=== PATIENT | male | born 1955 | race Caucasian/White ===

== ENCOUNTER 2024-12-07 08:56 | Outpatient (OUT) | payer MEDICARE, SELFPAY ==
--- OUTSIDE RECORDS SUMMARY | 2024-11-26 23:59 | XMS_ITS | Continuity of Care Document ---
Author Organization [facility] Address [address] [place] [address] Care Team Providers Care Pickling Machine Operator Name Role Phone YESENIA CHIRINOS Primary Care Physician [phone] Encounter [facility] [id number] Date(s): 11/26/24 - 11/26/24 [facility] [address] [place] [address] [place] Encounter Diagnosis BPH without urinary obstruction(Discharge Diagnosis) - 11/26/24 Discharge Disposition: Home (Routine DC) Attending Physician: NOLBERTO VALLADARES PA-C Encounter Type: Clinic Allergies, Adverse Reactions, Alerts Substance Criticality Severity Reaction Reaction Severity Status Milk Products Unknown Active Aluminum Acetate Unknown Act bashir Januvia Diarrhea Active Assessment and Plan Future Appointments Appointment Date:12/08/2024 10:00:00 AM Scheduled Provider:NOLBERTO VALLADARES PA-C Location:[facility] Appointment Type:URO Office Visit Immunizations Given and Recorded Vaccine Date Status Refusal Reason zoster vaccine, inactivated 04/19/23 Recorded zoster vaccine, inactivated 12/13/22 Recorded influenza virus vaccine, inactivated 03/01/23 Shivam rded influenza virus vaccine, inactivated 03/23/22 Shivam rded influenza virus vaccine, inactivated 04/17/21 Shivam rded influenza virus vaccine, inactivated 03/18/21 Shivam rded influenza virus vaccine, inactivated 03/17/21 Shivam rded influenza virus vaccine, inactivated 02/09/20 Shivam rded influenza virus vaccine, inactivated 03/05/19 Shivam rded pneumococcal 20-valent conjugate vaccine 12/13/22 Recorded pneumococcal 20-valent conjugate vaccine 08/09/22 Recorded SARS-CoV-2 (COVID-19) mRNAMUL.[id number] 03/23/22 Recorded SARSCoV2 mRNA(adjfqulgq-wufy-erznut) vac 09/27/21 Recorded SARS-CoV-2 (COVID-19) mRNA BNT-162b2 vax 03/18/21 Recorded SARS-CoV-2 (COVID-19) mRNA-1273 vaccine 1 09/06/20 Recorded SARS-CoV-2 (COVID-19) mRNA-1273 vaccine 2 08/16/20 Recorded influenza virus vaccine, live, trivalent 03/02/19 Recorded 1Result Comment: 2nd shot 2Result Comment: 1st shot Medications Joan 180 mg, Oral, Daily, Refills(s) 0, Allergy symptoms Start Date: 02/23/13 Status: Ordered Repeat number: 1 glyBURIDE 2.5 mg, Oral, BID, Refills(s) 0, Blood glucose Start Date: 08/08/17 Status: Ordered Repeat number: 1 metformin 750 mg ER Tab Refills(s) 0 Start Date: 05/15/22 Status: Ordered Repeat number: 1 omeprazole 20 mg, Oral, Daily, Refills(s) 0, Control of stomach acid Start Date: 08/08/17 Status: Ordered Repeat number: 1 Ozempic SubCutaneous, qWeek Start Date: 05/15/23 Status: Ordered Repeat number: 1 potassium citrate 15 mEq oral tablet, extended release 30 mEq = 2 tab(s), Oral, BID, X 90 day(s), # 360 tab(s), Refills(s) 3, Pharmacy: [facility], 180, cm, 11/21/23 11:37:00 EDT, Height/Length Dosing, 98, kg, 11/21/23 11:37:00 EDT, Weight Dosing Start Date: 06/08/24 Stop Date: 06/03/25 Status: Ordered Quantity: 360.0 Unit: tab(s) Repeat number: 4 Problem List Condition Confirmation Course Effective Dates Status H ealth Status Informant BPH without urinary obstruction Confirmed Active BPH with urinary obstruction Confirmed Resolved Hematuria Confirmed Resolved BMI 30.0-30.9,adult Confirmed Active Diabetes Confirmed Active Glucosuria Confirmed Active History of colon polyps Confirmed Active Ureteral stone with hydronephrosis Confirmed Active Kidney stones Confirmed Active Lt flank pain Confirmed Resolved Lung mass Confirmed Active Microscopic hematuria Confirmed Active Prostate cancer screening Confirmed Active Proteinuria Confirmed Active Ureteral stone Confirmed Resolved Procedures Procedure Date Related Diagnosis Body Site Status Open removal of bile duct stent 04/07/23 Completed Cystoscopic insertion of ure teric stent 05/31/21 Completed ESWL - Extracorporeal shockw ave lithotripsy for renal calculus 03/03/20 C ompleted Cystoscopy 1 02/17/20 Completed Lt ESWL 06/09/17 Completed Cystoscopy 10/27/15 Completed Intraosseous anaesthesia for dental surgery Completed L4-L5 interspinalis lumborum Completed Lung and/or mediastinal structures Completed Myogenic ptosis of bilateral eyes Completed Umbilical hernia Complete d 1CYSTO LEFT RETROGRADE PYLEOGRAM, LEFT URETEROSCOPY, STONE MANIPULATION, LEFT STENT Social History Social History Type Response Smoking Status Never (less than 100 in lifetime);Never entered on: 11/21/23 Sex Male Sex Representation Male (finding) Implantable Device List Procedure Provider Procedure Date Device Type Site CYSTOSCOPY RETROGRADE STENT INSERTION Frank Sykes Jr., MD 05/31/21 Non Biological Ureter L Device Identifier Serial Number Lot or Batch Number Manufacturing Date Expiration Date Distinct Identification Code MRI Safety Implantable Status Assigning Authority [id number] Unknown [id number] Unknown 03/06/25 Unknown Unknown Active GS1 Procedure Provider Procedure Date Device Type Site CYSTOSCOPY RETROGRADE STENT INSERTION Frank Sykes Jr., MD 02/17/20 Non Biological Ureter L Device Identifier Serial Number Lot or Batch Number Manufacturing Date Expiration Date Distinct Identification Code MRI Safety Implantable Status Assigning Authority [id number] Unknown [id number] Unknown 01/28/24 Unknown Unknown Active GS1 Patient Care team information Care Team Personnel Name: YESENIA CHIRINOS DO Position: FT Physician Member Role: Primary Care Physician Address: [address] [place] [address], [address] Telecom: Care Team Related Persons Name: SARAY HUA Name: SARAY HUA Name: SARAY HUA Insurance Providers Guarantor name: PORSHA Curry [employer] Health Plan Information #: 1 Payer: NA Payer Identifier: [id number] Member Number: [id number] Group Number: [id number] Subscriber Identifier: [id number] Relationship to Subscriber: Self Coverage Type: MEDICARE Coverage Verification Date: 24 Telecom: NA Address: NA Health Plan Information #: 2 Payer: NA Payer Identifier: NA Member Number: [id number] Group Number: PlanG Subscriber Identifier: [id number] Relationship to Subscriber: Self Coverage Type: PRIVATE HEALTH INSURANCE Coverage Verification Date: NA Telecom: NA Address: NA
--- OUTSIDE RECORDS SUMMARY | 2024-11-26 23:59 | XMS_ITS | Continuity of Care Document ---
Author Organization [facility] Address Unknown Care Team Providers Care Methodologist Name Role Phone YESENIA CHIRINOS Primary Care Physician Encounter _[facility] [id number] Date(s): 11/26/24 - 11/26/[address] [address] Discharge Disposition: Home (Routine DC) Attending Physician: NOLBERTO VALLADARES PA-C Admitting Physician: NOLBERTO VALLADARES PA-C Encounter Type: Outpatient Allergies, Adverse Reactions, Alerts Substance Criticality Severity Reaction Reaction Severity Status Milk Products Unknown Active Aluminum Acetate Unknown Act bashir Januvia Diarrhea Active Assessment and Plan Future Appointments Appointment Date:12/08/2024 10:00:00 AM Scheduled Provider:NOLBERTO VALLADARES PA-C Location:[facility] Appointment Type:URO Office Visit Immunizations Given and [...] 20-valent conjugate vaccine 08/09/22 Recorded SARS-CoV-2 (COVID-19) mRNAMUL.[id number] 03/23/22 Recorded SARSCoV2 mRNA(ypzrlmqys-vjph-bekbdq) vac 09/27/21 Recorded SARS-CoV-2 (COVID-19) mRNA BNT-162b2 [...] Code MRI Safety Implantable Status Assigning Authority [id number] [id number] Unknown [id number] Unknown 03/06/25 Unknown Unknown Active GS1 Procedure Provider Procedure Date Device Type Site CYSTOSCOPY RETROGRADE STENT INSERTION Frank Sykes Jr., MD 02/17/20 Non Biological Ureter L Device Identifier Serial Number Lot or Batch Number Manufacturing Date Expiration Date Distinct Identification Code MRI Safety Implantable Status Assigning Authority [id number] [id number] Unknown [id number] Unknown 01/28/24 Unknown Unknown Active GS1 Patient Care team information Care Team Personnel Name: YESENIA CHIRINOS DO Position: FT Physician Member Role: Primary Care Physician Address: [address] [place] [address], [address] Telecom: Care Team Related Persons Name: SARAY HUA Name: SARAY HUA Name: SARAY HUA Insurance Providers Guarantor name: PORSHA Curry [facility] Ambature Plan Information #: 1 Payer: NA Payer Identifier: [id number] Member Number: [id number] Group Number: [id number] Subscriber Identifier: [id number] Relationship to Subscriber: Self Coverage Type: MEDICARE Coverage Verification Date: NA Telecom: NA Address: [facility] Plan Information #: 2 Payer: Payer Identifier: SONJA Member Number: [id number] Group Number: PlanG Subscriber Identifier: [id number] Relationship to Subscriber: Self Coverage Type: PRIVATE HEALTH INSURANCE Coverage Verification Date: SONJA Telecom: NA Address:
--- OUTSIDE RECORDS SUMMARY | 2024-11-29 08:30 | XMS_ITS | Encounter Summary ---
Author Organization [facility] Address [address] [place] [address] Care Team Providers Care Tool Rental Technician Name Role Phone Daja Phipps DO Primary Care Provider Jana Plummer MD Unavailable [phone] Reason for Referral * Imaging (Urgent) - Authorized Specialty Diagnoses / Procedures Referred By Nancy lopez Referred To Contact Radiology Diagnoses Numbness and tingling in both hands Procedures MR cervical spine wo contrast Mandie Arriola NP [address] [place] [address] Phone: tel: fax: [place] [address] Phone: tel: fax: Referral ID Status Reason Start Date Expiration Date V isits Requested Visits Authorized [id number] Authorized 11/29/2024 05/28/2025 1 1 Reason for Visit * Reason Comments Numbness Encounter Details Date Type Department Care Team (Late Contact Info) Description 11/29/2024 8:30 AM EDT Office Visit [facility] [address] [place] [address] Mandie Arriola NP [address] [place] [address] Numbness and tingling in both hands (Primary Dx) Social History Tobacco Use Types Packs/Day Years Used Date Smoking Tobacco: Never Smokeless Tobacco: Never Alcohol Use Standard Drinks/Week Comments Yes 5 (1 standard drink = 0.6 oz pur e alcohol) 1-2 drinks/2-4x a month AUDIT-C Answer Date Recorded Q1: How often do you have a drink containing alc ohol? 2-4 times a month 01/16/2024 Q2: How many drinks containi ng alcohol do you have on a typical day when you are drinking? 1 or 2 01/16/2024 Q3: How often do you have si x or more drinks on one occasion? 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 Subjective Patient ID: Jason Grace (: 1955) is a 69 y.o. male who presents for Numbness. HPI History of Present Illness The patient presents for evaluation of hand numbness and tingling. He reports experiencing both numbness and tingling in his hands, with the right hand being more bothersome than the left. This has been ongoing for approximately 5 to 6 weeks. The symptoms are particularly severe at night, often waking him from sleep due to the pain. He also experiences a mild tingling sensation in his feet and weakness in his hands. He has not engaged in any heavy lifting or activities that could potentially result in a pinched nerve. He does not use splints at night. He is currently experiencing some numbness and tingling in his right hand, particularly in the fingertips, which makes it difficult to cotton picker small objects like paper during the day. He has not experienced any instances of dropping objects. He has a history of carpal tunnel syndrome in his right hand, which was previously attributed to a minor neck issue identified by a neurologist several years ago. Surgical intervention was not pursued due to the perceived risk and mild nature of the condition. He has been managing the pain with Celebrex and Advil, which he finds helpful. Shaking his hands does not alleviate the symptoms. He is diabetic and is aware that this could be contributing to his symptoms. His current medicationregimen includes metformin and Ozempic. He had x-rays at [facility] a few days ago to check on the update of his kidney stone because he sees the urologist. He does not have any issues going on. They also did his PSA. Current Outpatient Medications Medication Instructions celecoxib (CeleBREX) 200 MG capsule TAKE 1 CAPSULE BY MOUTH DAILY NEEDED FOR PAIN metFORMIN XR (GLUCOPHAGE-XR) 2,000 mg, Oral, Daily with breakfast, Do not crush, chew, or split. 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 Neurological: Positive for weakness and numbness. Objective Vital signs: BP 132/84 (Patient Position: Sitting) Pulse 80 Resp 16 SpO2 98% Recent Results (from the past 12 weeks) POCT glycated hemoglobin, total docked device Collection Time: 09/17/24 8:51 AM Result Value Ref Range Hemoglobin A1C 6.6 Physical Exam Constitutional: Appearance: Normal appearance. HENT: Mouth/Throat: Mouth: Mucous membranes are moist. Eyes: Pupils: Pupils are equal, round, and reactive to light. Cardiovascular: Rate and Rhythm: Normal rate. Pulmonary: Effort: Pulmonary effort is normal. Musculoskeletal: Cervical back: Normal range of motion. Comments: 4/5 strength R hand 5/5 strength L hand Sensation intact bilateral hands Skin: General: Skin is warm and dry. Neurological: Mental Status: He is alert and oriented to person, place, and time. Psychiatric: Mood and Affect: Mood normal. Assessment/Plan Assessment & Plan 1. Hand numbness and tingling. - Symptoms have persisted for approximately five to six weeks, with the right hand being more affected than the left. - Physical examination reveals numbness and tingling in the fingertips, particularly in the right hand, and difficulty picking up objects during the day. - Discussion included the possibility of cervical nerve compression contributing to symptoms, giventhe history of carpal tunnel syndrome and previous neck issues. - An x-ray of the neck will be performed today, and a referral for an MRI of the neck will be made to obtain a detailed assessment of the cervical spine and nerve involvement. 2. Diabetes mellitus. - The patient is currently experiencing tingling in the feet, which may be related to diabetic neuropathy. - Diabetes is managed with metformin and Ozempic, and the patient reports that Celebrex helps alleviate pain. - No changes to the diabetes management plan were discussed during this visit. - Continued monitoring of blood glucose levels and adherence to prescribed medications is advised. Problem List Items Addressed This Visit None Visit Diagnoses Numbness and tingling in both hands - Primary Relevant Orders XR cervical spine 2 or 3 views MR cervical spine wo contrast Health Maintenance Topic Date Due Diabetes: Hemoglobin A1C 12/17/2024 Medicare Annual Wellness (AWV) 01/15/2025 Diabetes: Urine Protein Screening 05/17/2025 Diabetes: Retinopathy Screening 04/05/2026 Colorectal Cancer Screening 08/09/2027 Influenza Vaccine Completed Pneumococcal Vaccine: 65+ Years Completed Immunization History Administered Date(s) Administered Influenza, High Dose Seasonal, Preservative Free 04/17/2021 Influenza, Seasonal, Quadrivalent, Adjuvanted 03/01/2023 Influenza, Unspecified 03/05/2019, 02/09/2020, 03/18/2021, 04/17/2021, 03/23/2022, 03/01/2023 Influenza, injectable, MDCK, preservative free, quadrivalent 03/23/2022 Influenza, injectable, quadrivalent, preservative free 02/09/2016, 03/20/2017, 03/17/2021, 03/18/2021 Influenza, live, intranasal 03/02/2019 Influenza, seasonal, injectable 02/09/2020 Influenza, seasonal, intradermal, preservative free 04/03/2015, 03/13/2018, 03/05/2019, 02/04/2020 Influenza, trivalent, adjuvanted 02/16/2024 Moderna Bivalent Booster Vaccination 03/23/2022, 03/23/2022 Moderna SARS-CoV-2 50mcg/0.5mL Booster 03/23/2022 Moderna SARS-CoV-2 Vaccination 08/16/2020, 09/06/2020 Pfizer Matthews Cap SARS-CoV-2 Vaccination 09/27/2021 Pfizer Purple Cap SARS-CoV-2 Vaccination 08/15/2020, 09/05/2020, 03/17/2021 Pneumococcal Conjugate PCV 20 08/09/2022, 12/13/2022 RSV, recombinant, protein subunit RSVpreF, adjuvant reconstitu, 120mcg/0.5mL, PF (Arexvy) 04/19/2023 SARS-COV-2 (COVID-19) vaccine, mRNA, spike protein, LNP, PF, susie-sucrose, 30 mcg/0.3 mL 03/01/2023, 02/16/2024 SARS-COV-2 (COVID-19) vaccine, mRNA, spike protein, LNP, bivalent, preservative free, 30 mcg/0.3 mLdose, susie-sucrose formulation 03/23/2022 SARS-CoV-2, Unspecified 09/27/2021 Tdap 02/16/2024 Zoster, Recombinant 12/13/2022, 04/19/2023 -Patient's chronic conditions have been reviewed in preparation for this appointment. Protocols reviewed and updated. A collaborative plan of care has been created for pt regarding specific health concerns. Any barriers to care have been identified and addressed. Any part of this document that has been added/copied from other documents has been reviewed for accuracy and updated as appropriate at the time of the patient encounter. -Follow up for Next scheduled follow-up. Mandie Arriola NP documented in this encounter Plan of Treatment Upcoming Encounters Date Type Department Care Team (Late st Contact Info) Description 12/10/2024 7:30 AM EDT Ancillary Procedure [facility] [address] [place] [id number] 01/21/2025 10:00 AM EDT Office Visit [facility] [address] [place] [address] Daja Phipps DO [address] [place], [place] [id number] 02/24/2025 8:45 AM EDT Office Visit [facility] [address] [place] [address] Jana Plummer MD [address] [place] [address] Scheduled Orders Name Type Priority Associated Diagnoses Orde r Schedule MR cervical spine wo contrast Imaging High Priority Numbness and tingling in both hands Expected: 11/29/2024 (Approximate), Expires: 03/01/2025 documented as of this encounter Results * XR cervical spine 2 or 3 views (11/29/2024 8:53 AM EDT) Anatomical Region Laterality Modality Spine, C-spine Radiographic Mary ging 11/29/2024 11:2 3 AM EDT Impressions 11/29/2024 11:25 AM EDT No acute osseous abnormality. Degenerative changes. ELECTRONICALLY SIGNED BY: Osman Hall DO Narrative 11/29/2024 11:25 AM EDT EXAMINATION: XR CERVICAL SPINE 2-3 VIEWS TECHNIQUE: 3 views of the cervical spine. CLINICAL HISTORY: Hand numbness and tingling COMPARISONS: None available. FINDINGS: Straightening of the cervical lordosis. Cervical vertebral body heights are maintained. Mild intervertebral disc height loss at C5-6 and C6-7, levels where there are degenerative endplate spurs. The lateral masses of C1 articulate symmetrically with C2. Atlantodental interval is preserved. No fracture or spondylolisthesis. Prevertebral soft tissues have a normal appearance. Procedure Note Osman Hall DO - 11/29/2024 EXAMINATION: XR CERVICAL SPINE 2-3 VIEWS TECHNIQUE: 3 views of the cervical spine. CLINICAL HISTORY: Hand numbness and tingling COMPARISONS: None available. FINDINGS: Straightening of the cervical lordosis. Cervical vertebral body heightsare maintained. Mild intervertebral disc height loss at C5-6 and C6-7,levels where there are degenerative endplate spurs. The lateral masses ofC1 articulate symmetrically with C2. Atlantodental interval is preserved.No fracture or spondylolisthesis. Prevertebral soft tissues have anormal appearance. IMPRESSION: No acute osseous abnormality. Degenerative changes. ELECTRONICALLY SIGNED BY: Osman Hall DO Mandie Arriola PULLMAN CAR CLERK IMG XR PROCEDURES Final Resu lt documented in this encounter Visit Diagnoses Diagnosis Numbness and tingling in both hands- Primary Numbness and tingling in both hands documented in this encounter Care Teams Tool Rental Technician Relationship Specialty Start Date End Date Daja Phipps DO [address] [address] PCP - General Internal Medicine 11/04/22 Jana Plummer MD [address] [place] [address] Referring Physician Dermatology 01/16/24 documented as of this encounter
--- OUTSIDE RECORDS SUMMARY | 2024-11-29 08:45 | XMS_ITS | Encounter Summary ---
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 on 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 on file 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 Not on file Not on file Not on file documented as of this encounter Plan of Treatment Upcoming Encounters Date Type Department Care Team (Late st Contact Info) Description 12/10/2024 7:30 AM EDT Ancillary Procedure [facility] [address] [id number] 01/21/2025 10:00 AM EDT Office Visit [facility] [address] [place] [phone] Daja Phipps DO [address] [place] [address] 02/24/2025 8:45 AM EDT Office Visit [facility] [address] [place] [address] Jana Plummer MD [address] [place] [address] documented as of this encounter Procedures Procedure Name Priority Date/Time Associated Diagnosis Comments XR CERVICAL SPINE 2-3 VIEWS Routine 11/29/2024 8:53 AM EDT Numbness and tingling in both hands documented in this encounter Results * XR cervical spine 2 or 3 views (11/29/2024 8:53 AM EDT) Anatomical Region Laterality Modality Spine, C-spine Radiographic Amry ging 11/29/2024 11:2 3 AM EDT Impressions [...] SIGNED BY: Osman Hall DO Mandie Arriola LEASE PURCHASE DRIVER IMG XR PROCEDURES Final Resu lt documented in this encounter Visit Diagnoses Diagnosis Numbness and tingling in both hands documented in this encounter Care Teams Chalk Machine Operator Relationship Specialty Start Date End Date Daja Phipps DO [address] [place] [address] PCP - General Internal Medicine 11/04/22 Jana Plummer MD [address] [place] [address] Referring Physician Dermatology 01/16/24 documented as of this encounter
--- OUTSIDE RECORDS SUMMARY | 2024-12-01 23:59 | XMS_ITS | Continuity of Care Document ---
Author Organization [facility] Address [address] [place] [address] Care Team Providers Care Senior Net Software Engineer Name Role Phone YESENIA CHIRINOS Primary Care Physician Encounter FT_STEPHENFIN [id number] Date(s): 12/01/24 - 12/01/24 [facility] [address] [place] [address] [place] Encounter Diagnosis Kidney stones(Discharge Diagnosis) - 12/01/24 BPH without urinary obstruction(Discharge Diagnosis) - 12/01/24 Microscopic hematuria(Discharge Diagnosis) - 12/01/24 Elevated PSA(Discharge Diagnosis) - 12/01/24 Discharge Disposition: Home (Routine DC) Attending Physician: Raheem HAMILTON MD Encounter Type: Clinic Allergies, Adverse Reactions, Alerts Substance Criticality Severity Reaction Reaction Severity Status Milk Products Unknown Active Aluminum Acetate Unknown Act bashir Januvia Diarrhea Active Immunizations Given and Recorded Vaccine Date Status Refusal Reason diphtheria/pertussis, acel/tetanus adult 02/16/24 Recorded influenza virus vaccine, inactivated 02/16/24 Shivam rded influenza virus vaccine, inactivated 03/01/23 Shivam rded influenza virus vaccine, inactivated 03/23/22 Shivam rded influenza virus vaccine, inactivated 04/17/21 Shivam rded influenza virus vaccine, inactivated 03/18/21 Shivam rded influenza virus vaccine, inactivated 03/17/21 Shivam rded influenza virus vaccine, inactivated 02/09/20 Shivam rded influenza virus vaccine, inactivated 03/05/19 Shivam rded RSV vaccine preF3, recombinant 04/19/23 Recorded zoster vaccine, inactivated 04/19/23 Recorded zoster vaccine, inactivated 12/13/22 Recorded pneumococcal 20-valent conjugate vaccine 12/13/22 Recorded pneumococcal 20-valent conjugate vaccine 08/09/22 Recorded SARS-CoV-2 (COVID-19) [id number] 03/23/22 Recorded SARSCoV2 mRNA(kkakkembj-wury-qzcaio) vac 09/27/21 Recorded SARS-CoV-2 (COVID-19) mRNA BNT-162b2 vax 03/18/21 Recorded SARS-CoV-2 (COVID-19) mRNA-1273 vaccine 1 09/06/20 Recorded SARS-CoV-2 (COVID-19) mRNA-1273 vaccine 2 08/16/20 Recorded influenza virus vaccine, live, trivalent 03/02/19 Recorded 1Result Comment: 2nd shot 2Result Comment: 1st shot Medications Joan 180 mg, Oral, Daily, Refills(s) 0, Allergy symptoms Start Date: 02/23/13 Status: Ordered Repeat number: 1 celecoxib 200 mg Cap 200 mg = 1 cap(s), Oral, Daily Start Date: 12/01/24 Status: Ordered Repeat number: 1 glyBURIDE 2.5 mg, Oral, BID, Refills(s) 0, Blood glucose Start Date: 08/08/17 Status: Ordered Repeat number: 1 metformin 750 mg ER Tab Refills(s) 0 Start Date: 05/15/22 Status: Ordered Repeat number: 1 omeprazole 20 mg, Oral, Daily, Refills(s) 0, Control of stomach acid Start Date: 08/08/17 Status: Ordered Repeat number: 1 Ozempic 8 mg/3 mL (2 mg dose) subcutaneous solution 2 mg, SubCutaneous Start Date: 12/01/24 Status: Ordered Repeat number: 1 potassium citrate [...] Confirmed Active Prostate cancer screening Confirmed Active Elevated PSA Confirmed Active Proteinuria Confirmed Active Ureteral stone [...] (less than 100 in lifetime);Never entered on: 12/01/24 Sex Male Sex Representation Male (finding) Implantable Device List Procedure Provider Procedure Date Device Type Site CYSTOSCOPY RETROGRADE STENT INSERTION Frank Sykes Jr., MD 05/31/21 Non Biological Ureter L Device Identifier Serial Number Lot or Batch Number Manufacturing Date Expiration Date Distinct Identification Code MRI Safety Implantable Status Assigning Authority [id number] Unknown [id number] Unknown 03/06/25 Unknown Unknown Active GS1 Procedure Provider Procedure Date Device Type Site CYSTOSCOPY RETROGRADE STENT INSERTION Frank Sykes Jr., MD 02/17/20 Non Biological Ureter L Device Identifier Serial Number Lot or Batch Number Manufacturing Date Expiration Date Distinct Identification Code MRI Safety Implantable Status Assigning Authority [id number] Unknown [id number] Unknown 01/28/24 Unknown Unknown Active GS1 Hospital Discharge Instructions Patient Education 12/01/2024 11:31:53 Magnetic Resonance Imaging Magnetic Resonance Imaging Magnetic resonance imaging (MRI) is a painless test that produces detailed images of organs and tissues inside the body without using X-rays. During an MRI, strong magnets and radio waves work together to form images. MRI images may provide more details about a medical condition than X-rays, CT scans, and ultrasounds can provide. For a standard MRI, you will lie on a table that slides into a tunnel. In an open MRI, the tunnel will be open at the sides. In some cases, dye (contrast material) may be injected into your bloodstream to make the MRI images even clearer. Tell a health care provider about: ??? Any allergies you have. ??? All medicines you are taking, including vitamins, herbs, eye drops, creams, and jlkb-pjo-qntzste medicines. ??? Any surgeries you have had. ??? Any medical conditions you have. ??? Any metal you may have in your body. The magnets used in an MRI can cause metal objects in yourbody to move. Metal can also make it difficult to get clear images. Objects that may contain metal include: ??? Any joint replacement (prosthesis), such as an artificial knee or hip. ??? An implanted defibrillator, pacemaker, or neurostimulator. ??? A metallic ear implant (cochlear implant). ??? An artificial heart valve. ??? A metallic object in the eye. ??? Metal splinters. ??? Bullet fragments. ??? A port for delivering insulin or chemotherapy. ??? Any tattoos you have. Some of the darker inks can cause problems with testing. ??? Whether you are using a control implant such as an intrauterine device (IUD). ??? Whether you are , may be , or are . ??? Any fear of cramped spaces (claustrophobia). If this is a problem, it usually can be managed with medicines given prior to the MRI. What are the risks? Generally, this is a safe test. However, problems may occur, such as: ??? If you have metal in your body and it is close to the area being tested, it may be hard to get high-quality images. ??? If you are , you should avoid MRI tests during the first three months of . An MRI may affect an unborn baby. ??? If dye is used: ??? You may need to stop until the dye leaves your body naturally, if this applies. ??? There is a risk of an allergic reaction to the dye. You can take medicines to prevent this reaction or to treat it if you have allergy symptoms. ??? The dye can cause damage to your kidneys. Drinking plenty of water before and after the procedure can help prevent this problem. What happens before the procedure? You will be asked to remove all metal, including: ??? A watch, jewelry (including jewelry in piercings), and other metal objects. ??? Hearing aids. ??? Dentures. ??? An underwire bra. ??? Makeup. Some makeup contains small amounts of metal. ??? Braces and fillings are normally not a problem. ??? If you are , ask your health care provider if you need to pump before your test. You may need to stop temporarily if dye will be used. What happens during the procedure? You may be given earplugs or headphones to listen to music. The MRI machine can be noisy. ??? You will lie flat on your back on a long table. ??? If dye will be used, an IV will be inserted into one of your veins. Dye will be injected into your IV and travel through your bloodstream. ??? The table will slide into a tunnel that has magnets inside. When you are inside the tunnel, youwill still be able to talk to your health care provider. ??? You will be asked to lie very still while images are taken. Your health care provider will tellyou when you can move. You may have to wait a few minutes to make sure that the images produced during the test are clear. ??? When all images are produced, the table will slide out of the tunnel. The procedure can last from 30 minutes to over an hour. The procedure may vary among health care providers and hospitals. What can I expect after the procedure? You may be taken to a recovery area if sedation medicines were used. Your blood pressure, heartrate, breathing rate, and blood oxygen level will be monitored until you leave the hospital or clinic. ??? If dye was used: ??? It will leave your body through your urine within a day. You may be told to drink plenty of fluids to help flush the dye out of your system. ??? Do not breastfeed your child until your health care provider says that this is safe. Follow these instructions at home: ??? You may return to your normal activities right away, or as told by your health care provider. ??? It is up to you to get your test results. Ask your health care provider, or the department thatis doing the test, when your results will be ready. ??? Keep all follow-up visits. This is important. Talk with your health care provider about what your test results mean. Summary ??? Magnetic resonance imaging (MRI) is a painless test that produces detailed pictures of the inside of your body without using X-rays. Strong magnets and radio waves work together to form very detailed and clear images. ??? In some cases, dye (contrast material) may be injected into your body to make MRI images even clearer. ??? Before your MRI, be sure to tell your health care provider about any metal you may have in yourbody. ??? Talk with your health care provider about what your test results mean. This information is not intended to replace advice given to you by your health care provider. Make sure you discuss any questions you have with your health care provider. Document Revised: 01/30/2022 Document Reviewed: 09/20/2020 [employer] Patient Education ?? 2023 [employer] 12/01/2024 11:21:58 Laser Therapy for Kidney Stones, Care After Laser Therapy for Kidney Stones, Care After After laser therapy for kidney stones, it is common to have: ??? Pain. ??? A burning feeling when you pee (urinate). ??? Small amounts of blood in your pee (urine). ??? A need to pee a lot. ??? Parts of the kidney stone in your pee. ??? Mild discomfort in your back when you pee. You may have this if you had a small mesh tube (stent) placed during the procedure. Follow these instructions at home: Medicines ??? Take mffr-sqd-bpfzqqw and prescription medicines only as told by your health care provider. ??? If you were prescribed antibiotics, take them as told by your provider. Do not stop using the antibiotic even if you start to feel better. ??? Ask your provider if the medicine prescribed to you: ??? Requires you to avoid driving or using machinery. ??? Can cause constipation. You may need to take these actions to prevent or treat constipation: ??? Drink enough fluid to keep your pee pale yellow. ??? Take xlop-lgy-uvnenog or prescription medicines. ??? Eat foods that are high in fiber, such as beans, whole grains, and fresh fruits and vegetables. ??? Limit foods that are high in fat and processed sugars, such as fried or sweet foods. Activity ??? If you were given a sedative during the procedure, it can affect you for several hours. Do not drive or operate machinery until your provider says that it is safe. ??? Return to your normal activities as told by your provider. Ask your provider what activities are safe for you. General instructions ??? Your provider may recommend that you drink a lot of water for a few hours after your procedure.If you have heart or kidney disease, ask your provider how much you should drink. ??? You may be asked to strain your pee to collect any stone pieces that you pass. Your provider may have these pieces tested. ??? Do not take baths, swim, or use a hot tub until your provider approves. Ask your provider if you may take warm baths to soothe the burning. ??? Keep all follow-up visits. If you have a stent, you will need to go back to your provider to have it removed. Your provider may give you more instructions. Make sure you know what you can and cannot do. Contact a health care provider if: ??? You have pain or a burning feeling that lasts for more than 2 days. ??? You feel nauseous. ??? You vomit more and more often. ??? You have trouble peeing. ??? You have pain that gets worse or does not get better with medicine. ??? You have a fever or shaking chills. Get help right away if: ??? You cannot pee, even when your bladder feels full. ??? You faint. ??? You have chest pain, shortness of breath, or cough up blood. ??? You have: ??? Bright red blood or blood clots in your pee. ??? Severe pain or discomfort. ??? Pain in your abdomen. ??? Swelling in your legs. These symptoms may be an emergency. Get help right away. Call 911. ??? Do not wait to see if the symptoms will go away. ??? Do not drive yourself to the hospital. This information is not intended to replace advice given to you by your health care provider. Make sure you discuss any questions you have with your health care provider. Document Revised: 01/17/2023 Document Reviewed: 01/17/2023 [employer] Patient Education ?? 2023 [employer]. 12/01/2024 11:21:57 Laser Therapy for Kidney Stones Laser Therapy for Kidney Stones Laser therapy for kidney stones is a procedure to break up rock-like masses that form inside the kidneys (kidney stones). It is done using a device that beams a strong light (laser) on the kidney stones. This breaks the stones up into small pieces. These small pieces may leave your body when you pee (urinate) or may be taken out during the procedure. You may need laser therapy if you have kidney stones that are painful or that are stopping you frombeing able to pee. Tell a health care provider about: ??? Any allergies you have. ??? All medicines you are taking, including vitamins, herbs, eye drops, creams, and wlem-ghn-bfwxylt medicines. ??? Any problems you or family members have had with anesthesia. ??? Any bleeding problems you have. ??? Any surgeries you have had. ??? Any medical conditions you have. ??? Whether you are or may be . What are the risks? Your health care provider will talk with you about risks. These may include: ??? Infection. ??? Bleeding. ??? Allergic reactions to medicines. ??? Damage to: ??? The part of your body that drains pee (urine) from the bladder (urethra). ??? The bladder. ??? The tube that connects the bladder to the kidneys (ureter). ??? Urinary tract infection (UTI). ??? Urethral stricture. This is when the urethra is narrowed by scarring. ??? Trouble peeing. ??? Blockage of the kidney. This may be caused by a piece of kidney stone. What happens before the procedure? When to stop eating and drinking Follow instructions from your provider about what you may eat and drink. These may include: ??? 8 hours before the procedure ??? Stop eating most foods. Do not eat meat, fried foods, or fatty foods. ??? Eat only light foods, such as toast or crackers. ??? All liquids are okay except energy drinks and alcohol. ??? 6 hours before the procedure ??? Stop eating. ??? Drink only clear liquids, such as water, clear fruit juice, black coffee, plain tea, and sportsdrinks. ??? Do not drink energy drinks or alcohol. ??? 2 hours before the procedure ??? Stop drinking all liquids. ??? You may be allowed to take medicines with small sips of water. ??? If you do not follow your provider's instructions, your procedure may be delayed or canceled. Medicines ??? Ask your provider about: ??? Changing or stopping your regular medicines. These include any diabetes medicines or blood thinners you take. ??? Taking medicines such as aspirin and ibuprofen. These medicines can thin your blood. Do not take them unless your provider tells you to. ??? Taking ifbn-hxy-wrqbjyk medicines, vitamins, herbs, and supplements. Tests ??? You may have a physical exam before the procedure. You may also have tests done. These may include: ??? Imaging tests. ??? Blood or pee tests. Surgery safety ??? Ask your provider: ??? How your surgery site will be marked. ??? What steps will be taken to help prevent infection. These steps may include: ??? Removing hair at the surgery site. ??? Washing skin with a soap that kills germs. ??? Taking antibiotics. General instructions ??? Do not use any products that contain nicotine or tobacco for at least 4 weeks before the procedure. These products include cigarettes, chewing tobacco, and vaping devices, such as e-cigarettes. If you need help quitting, ask your provider. ??? If you will be going home right after the procedure, plan to have a responsible adult: ??? Take you home from the hospital or clinic. You will not be allowed to drive. ??? Care for you for the time you are told. What happens during the procedure? An IV will be inserted into one of your veins. ??? You will be given: ??? A sedative. This helps you relax. ??? Anesthesia. This keeps you from feeling pain. It will make you fall asleep for surgery. ??? A tool with a camera on the end (ureteroscope) will be put into your urethra. It will be moved through your bladder to your kidney. It will send pictures to a screen in the operating room. This will show what parts of your kidney need to be treated. ??? A tube will be put through the ureteroscope. It will be moved into your kidney. ??? The laser device will be put into your kidney through the tube. The laser will be used to breakup the kidney stones. ??? A tool with a tiny wire basket may be put through the tube into your kidney. This can help remove the small pieces of the kidney stone. ??? A small mesh tube (stent) may be placed to allow your kidney to drain. ??? The tube and ureteroscope will be taken out at the end of the surgery. The procedure may vary among providers and hospitals. What happens after the procedure? Your blood pressure, heart rate, breathing rate, and blood oxygen level will be monitored untilyou leave the hospital or clinic. ??? If you had a stent placed, it may have a string that will be secured to your skin. This helps your provider remove the stent. ??? You may be given a strainer to collect any stone pieces that you pass in your pee. Your provider may have these tested. This information is not intended to replace advice given to you by your health care provider. Make sure you discuss any questions you have with your health care provider. Document Revised: 01/17/2023 Document Reviewed: 01/17/2023 [employer] Patient Education ?? 2023 [employer]. Follow Up Care 11/23/2024 13:51:32 With:ALFONSO HOLLY, Raheem Cross, URL Address: [facility] [address], [place] [phone] When: Unknown Comments:sched??L ESWL and prostate MRI Patient Care team information Care Team Personnel Name: YESENIA CHIRINOS DO Position: FT Physician Member Role: Primary Care Physician Address: [address] [place] [address] [place] [address]- Telecom: Care Team Related Persons Name: SARAY HUA Name: SARAY HUA Name: SARAY HUA Insurance Providers Guarantor name: PORSHA Curry MELITA Health Plan Information #: 1 Payer: SONJA Payer Identifier: [id number] Member Number: [id number] Group Number: [id number] Subscriber Identifier: [id number] Relationship to Subscriber: Self Coverage Type: MEDICARE Coverage Verification Date: 24 Telecom: Address: Health Plan Information #: 2 Payer: NA Payer Identifier: SONJA Member Number: [id number] Group Number: PlanG Subscriber Identifier: [id number] Relationship to Subscriber: Self Coverage Type: PRIVATE HEALTH INSURANCE Coverage Verification Date: SONJA Telecom: Address:
--- OUTSIDE RECORDS SUMMARY | 2024-12-07 09:01 | XMS_ITS | Encounter Summary ---
Author Organization [facility] Address [address] [place] [address] Care Team Providers Care Credit Card Associate Name Role Phone Daja Phipps DO Primary Care Provider Jana Plummer MD Unavailable [phone] Encounter Details Date Type Department Care Team (Late Contact Info) Description 11/04/2022 Abstract [facility] [address] [place] [phone] Daja Phipps, DO [address] [place] [address] Social History Tobacco Use Types Packs/Day Years Used Date Smoking Tobacco: Never Assessed Sex and Gender Information Value Date Recorded Sex Assigned at Male 11/07/2022 11:39 AM EDT Legal Sex Male 6:35 PM EDT Gender Identity Male 08/14/2022 6:35 PM EDT Sexual Orientation Straight 11/07/2022 11 :39 AM EDT COVID-19 Exposure Response Date Recorded In the last 10 days, have yo u been in contact with someone who was confirmed or suspected to have Coronavirus/COVID-19? No / Unsure 11/07/2022 11:47 AM EDT documented as of this encounter Plan of Treatment Upcoming Encounters Date Type Department Care Team (Late Contact Info) Description 12/10/2024 7:30 AM EDT Ancillary Procedure [facility] [address] [place] [address] 01/21/2025 10:00 AM EDT Office Visit [facility] [address] [place] [phone] Daja Phipps DO [address] [place] [address] 02/24/2025 8:45 AM EDT Office Visit [facility] [address] [place] [phone] Jana Plummer MD [address] [place] [address] documented as of this encounter Visit Diagnoses Not on filedocumented in this encounter Care Teams Credit Card Associate Relationship Specialty Start Date End Date Daja Phipps DO [address] [place] [address] PCP - General Internal Medicine 11/04/22 Jana Plummer MD [address] [place] [address] Referring Physician Dermatology 01/16/24 documented as of this encounter
--- OUTSIDE RECORDS SUMMARY | 2024-12-07 09:01 | XMS_ITS | Encounter Summary ---
Author Organization [facility] Address [address] 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 on file 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 Not on file Not on file Not on file documented as of this encounter Plan of Treatment Upcoming Encounters Date Type Department Care Team (Late st Contact Info) Description 12/10/2024 7:30 AM EDT Ancillary Procedure [facility] [address] [place] [phone] 01/21/2025 10:00 AM EDT Office Visit [facility] [address] [place] [address] Daja Phipps DO [address] [place], [place] [id number] 02/24/2025 8:45 AM EDT Office Visit [facility] [address] [place] [address] Jana Plummer MD [address] [place] [address] documented as of this encounter Procedures Procedure Name Priority Date/Time Associated Diagnosis Comments XR ABDOMEN 1 VIEW Routine 11/26/2024 10:04 AM EDT PSA, TOTAL Routine 11/26/2024 8:47 AM EDT documented in this encounter Results * XR abdomen 1 view (11/26/2024 10:04 AM EDT) Anatomical Region Laterality Modality Abdomen Radiographic Mary ging us [facility] Provider Unallocated MD MEJIAG XR PROCEDURES F inal Result * PSA (11/26/2024 8:47 AM EDT) Blood Venous blood specimen / Unknown us [facility]oms Provider Unallocated LAB BLOOD ORDERABLE S Final Result documented in this encounter Visit Diagnoses Not on filedocumented in this encounter Care Teams Community Life Director Relationship Specialty Start Date End Date Daja Phipps DO [address] [place] [address] PCP - General Internal Medicine 11/04/22 Jana Plummer MD [address] [place] [address] Referring Physician Dermatology 01/16/24 documented as of this encounter
--- OUTSIDE RECORDS SUMMARY | 2024-12-07 09:01 | XMS_ITS | Encounter Summary ---
Author Organization [facility] Address [address] [place] [address] Care Team Providers Care Emergency Medicine Physician Assistant Name Role Phone Daja Phipps DO Primary Care Provider Jana Plummer MD Unavailable [phone] Encounter Details Date Type Department Care Team (Late st Contact Info) Description 12/21/2022 Abstract [facility] [address] [place] [id number] Mandie Arriola, AUTOMOTIVE [employer] [address] [place] [address] Social History Tobacco Use Types Packs/Day Years Used Date Smoking Tobacco: Never Smokeless Tobacco: Never Alcohol Use Standard Drinks/Week Comments Yes 5 (1 standard drink = 0.6 oz pur e alcohol) AUDIT-C Answer Date Recorded Q1: How often do you have a drink containing alc ohol? 2-3 times a week 12/13/2022 Q2: How many drinks containi ng alcohol do you have on a typical day when you are drinking? 1 or 2 12/13/2022 Q3: How often do you have si x or more drinks on one occasion? Never 12/13/2022 Sex and Gender Information Value Date Recorded [...] suspected to have Coronavirus/COVID-19? No / Unsure 12/06/2022 11:32 AM EDT documented as of this encounter Plan of Treatment Upcoming Encounters Date Type Department Care Team (Late st Contact Info) Description 12/10/2024 7:30 AM EDT Ancillary Procedure [facility] [address] [place] [id number] 01/21/2025 10:00 AM EDT Office Visit [facility] [address] [place] [address] Daja Phipps DO [address] [place] [address] 02/24/2025 8:45 AM EDT Office Visit [facility] [address] [place] [address] Jana Plummer MD [address] [place] [address] documented as of this encounter Visit Diagnoses Not on filedocumented in this encounter Care Teams Emergency Medicine Physician Assistant Relationship Specialty Start Date End Date Daja Phipps DO [address] [place] [address] PCP - General Internal Medicine 11/04/22 Jana Plummer MD [address] [place] [address] Referring Physician Dermatology 01/16/24 documented as of this encounter
--- OUTSIDE RECORDS SUMMARY | 2024-12-07 09:01 | XMS_ITS | Clinical Summary ---
Author Organization [facility] Address [address] [place] [address] Care Team Providers Care Supervisor Drying And Winding Name Role Phone Desire Daja Umana DO Primary Care Provider Jana Plummer MD Unavailable [phone] Allergies Active Allergy Reactions Criticality Noted Date Comments Alum Sulfate-Ca Acetate 12/23/2022 Aluminum Cough,Rash,Unknown Low 02/06/2021 Burow's Solution (Aluminum Acetate) Rash,Cough Low 11/08/2022 Lactose Intolerance (Gi) GI intolerance Medium 11/04/2022 Other Reaction(s): diarrhea and gas Plegisol Other Medium 12/13/2022 Cough, throat irritation Milk Protein GI intolerance Medium 11/08/2022 Medications omeprazole OTC (PriLOSEC OTC) 20 MG EC tablet Take 20 mg by mouth in the morning. Take before meals. Active celecoxib (CeleBREX) 200 MG capsuleIndications:Acute pancreatitis after endoscopic retrograde cholangiopancreatography (ERCP) ([facility]) TAKE 1 CAPSULE BY MOUTH DAILY NEEDED FOR PAIN 90 capsule 3 024 Active POTASSIUM CITRATE PO Take 30 mEq by mouth in the morning and 30 mEq before bedtime. Rx'd by urology. Active metFORMIN XR (Glucophage-XR) 500 MG 24 hr tabletIndications:Type 2 diabetes mellitus with diabetic microalbuminuria, without long-term current use of insulin ([facility]) Take 4 tablets (2,000 mg) by mouth in the morning. Take with meals. Do not crush, chew, or split. 360 tablet 3 025 2025 Active Semaglutide, 2 MG/DOSE, (Ozempic, 2 MG/DOSE,) 8 MG/3ML solution pen-injectorIndications:Typ e 2 diabetes mellitus with diabetic microalbuminuria, without long-term current use of insulin (HCC) Inject 2 mg under the skin 1 (one) time per week 9 mL 3 025 Active Active Problems Problem Noted Date Diagnosed Date Elevated PSA, less than 10 ng/ml 05/20/2024 Overview (05/20/2024): 05/2023 PSA= 2.8 05/2024 PSA 4.8 Assessment & Plan (05/20/2024 9:18 AM EST): While not significantly elevated, has increased by 2 ng/ml in the last year. We will get PSA profile in 6 months (I will give him the order for this at his next appt) Atherosclerosis of aorta 02/10/2024 Assessment & Plan (09/17/2024 9:01 AM EDT): Atherosclerosis is caused when there is too much cholesterol in the blood and this leads to deposits in the blood vessels called plaque. This is a common condition that happens silently over many years. Plaque can cause an artery to become narrowed or blocked. A plaque could also rupture, which would cause a blood clot to form (which could cause acute disruption in blood flow). Treatment is aimed at reducing risk for progression by managing/reducing other CV risk factors. -Treat HTN -Treat with statin (or other lipid lowering agents) -Consider ASA to reduce risk for clots Assessment & Plan (02/10/2024 10:19 PM EDT): Atherosclerosis is caused when there is too much cholesterol in the blood and this leads to deposits in the blood vessels called plaque. This is a common condition that happens silently over many years. Plaque can cause an artery to become narrowed or blocked. A plaque could also rupture, which would cause a blood clot to form (which could cause acute disruption in blood flow). Treatment is aimed at reducing risk for progression by managing/reducing other CV risk factors. 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 Sx felt to be due to OA and taking celebrex Assessment & Plan (06/03/2023 10:29 PM EST): -Pt is doing fine on current rx. Based on review of patient's medications and current medical status; continuation of medications most appropriate. Compliance with medications and/or management recommendations encouraged. Monitor Benign localized prostatic h yperplasia with lower urinary tract symptoms (LUTS) 11/04/2022 Overview (09/12/2023): He has follow up with Urology 11/2023 (with Ermelinda BAY) Assessment & Plan (02/10/2024 10:17 PM EDT): -Because an enlarged prostate can result in blockage of the flow of urine from the bladder, will monitor for sx of urinary retention. A common symptom of BPH is frequent urination and/or nocturia. Mild symptoms can be treated with medication that can help relax the bladder neck muscles and muscle fibers in the prostate. For more serious symptoms, there are additional interventions which can be performed by a Urologist. Will continue to monitor for sx that would indicate need for further evaluation or treatment Assessment & Plan (06/03/2023 10:28 PM EST): -Because an enlarged prostate can result in blockage of the flow of urine from the bladder, will monitor for sx of urinary retention. A common symptom of BPH is frequent urination and/or nocturia. Mild symptoms can be treated with medication that can help relax the bladder neck muscles and muscle fibers in the prostate. For more serious symptoms, there are additional interventions which can be performed by a Urologist. Will continue to monitor for sx that would indicate need for further evaluation or treatment Carpal tunnel syndrome, right 11/04/2022 GERD without esophagitis 11/04/2022 Overview (06/03/2023): He is taking omeprazole Assessment & Plan (09/19/2024 10:27 PM EDT): -Pt advised to avoid food triggers and follow conservative management measures (including avoiding tight fitting pants, weight management, and elevating HOB as indicated) to keep GERD symptoms under control. -Take medications as recommended and monitor for alarm symptoms . Assessment & Plan (09/29/2023 8:07 PM EDT): -Pt advised to avoid food triggers and follow conservative management measures (including avoiding tight fitting pants, weight management, and elevating HOB as indicated) to keep GERD symptoms under control. -Dietary modifications that can help with symptom management include: Eat smaller, more frequent meals rather than large one. Avoid food or liquids for 2-3 hours before lying down (no bedtime snacks!) Avoid or limit the following: Caffeinated products: coffee, tea, sodas, chocolate Red sauces and salsa Fatty, fried, or greasy foods Citric juices: orange, grapefruit Spicy foods Mints: peppermint, spearmint Alcohol -Take medications as recommended and monitor for alarm symptoms . Assessment & Plan (06/03/2023 10:28 PM EST): -Pt advised to avoid food triggers and follow conservative management measures (including avoiding tight fitting pants, weight management, and elevating HOB as indicated) to keep GERD symptoms under control. -Dietary modifications that can help with symptom management include: Eat smaller, more frequent meals rather than large one. Avoid food or liquids for 2-3 hours before lying down (no bedtime snacks!) Avoid or limit the following: Caffeinated products: coffee, tea, sodas, chocolate Red sauces and salsa Fatty, fried, or greasy foods Citric juices: orange, grapefruit Spicy foods Mints: peppermint, spearmint Alcohol -Take medications as recommended and monitor for alarm symptoms . 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 Per discussion during appt 05/09/2023, he reports that he would like to resume the Ozempic since he has now had cholecystectomy. 09/2023-advised to stopped the glyburide (05/2024- he did not) 01/2024- his A1c has improved to 6.0% 08/2024- Will change the metformin XR to 500 mg- 4/day. Also discussed increasing the ozempic (2 mg) and stopping the glyburide Assessment & Plan (09/19/2024 10:30 PM EDT): Will see how glucose control does with medication changes. Will have him drop the glyburide. 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 Assessment & Plan (05/20/2024 9:21 AM EST): Will continue to hold the metformin. If A1c control worsens, we can increase the dose of the ozempic. Reinforced importance of dietary compliance for glucose management Assessment & Plan (02/10/2024 10:16 PM EDT): He continues to do well with DM control . I have reinforced the importance of dietary modification, routine exercise and weight control for nursing home DM management and reduction in risk for development and progression of complications (like vision loss, kidney failure, neuropathy, and increased risk of heart attack and stroke). Chart reviewed to make sure patient is up to date on screenings for DM related comorbidities (ie annual dilated eye exam, annual SALOME and other labs and reminded to do daily foot exams). Specific goals for A1c and BP were reviewed and ways to achieve this goals discussed. Assessment & Plan (09/29/2023 8:06 PM EDT): Will stop the glyburide and that should significantly reduce his risk for hypoglycemia. He will continue to work on dietary compliance. If A1c still <7% at next appt, will decrease the dose of the metformin Assessment & Plan (06/03/2023 10:27 PM EST): -His A1c has increased from 6.7% to 8.9% since being off the Ozempic. Based on discussion today, he would like to resume the Ozempic. Since he has been off for several months now, will restart titration at 0.25 mg weekly. If tolerating, he can up titrate every couple weeks to goal of 1 mg weekly -Chart reviewed to make sure patient is up to date on screenings for DM related comorbidities (ie annual dilated eye exam, annual SALOME and other labs and reminded to do daily foot exams). Specific goals for A1c and BP were reviewed and ways to achieve this goals discussed. Assessment & Plan (01/06/2023 1:28 PM EDT): Discussed that goal would be to discontinue the glyburide as his glucose readings improve Neuropathic spondylopathy of lumbosacral region Resolved Problems Problem Noted Date Diagnosed Date Resolved Date Acute pancreatitis after end oscopic retrograde cholangiopancreatography (ERCP) ([facility]) 12/23/2022 09/12/2023 Overview (01/06/2023): ERCP done to dilate biliary duct w/ stent placement x 2, done at [facility] Calculus of gallbladder with acute cholecystitis without obstruction 11/08/20222022 Acute gangrenous cholecystitis 11/08/2022 01/01/2023 Lt flank pain 11/08/2022 12/13/2022 Lung mass 11/08/2022 01/06/2023 BMI 30.0-30.9,adult 11/08/2022 01/02/20 Prostate cancer screening 11/08/2022 Ureteral stone 11/08/2022 12/13/2022 Ureteral stone with hydronephrosis 11/08/2022 12/13/2022 BPH without urinary obstruction 11/08/2022 12/13/2022 Kidney stones 11/08/2022 12/13/2022 Calculus of gallbladder with out cholecystitis without obstruction 11/04/2022 11/28/2022 Dermatochalasis of both upper eyelids 11/04/2022 01/06/2023 Type 2 diabetes mellitus without complication 11/05/1901/01/2023 Class 1 obesity in adult 07/26/2022 Abnormal laboratory test result 02/14/2021 01/01/2023 Benign prostatic hyperplasia with urinary obstruction 10/08/2020 01/01/2023 Gastroesophageal reflux disease 08/24/2020 12/13/2022 Carpal tunnel syndrome 05/16/202012/13 Obesity with body mass index 30 or greater 05/12/2020 01/06/2023 Encounters Date Type Department Care Team Description 11/29/2024 8:45 AM EDT Ancillary Procedure [facility] [address] [place] [address] Numbness and tingling in both hands 11/29/2024 8:30 AM EDT Office Visit [facility] [address] [place] [address] Mandie Arriola, ENERGY BROKER Numbness and tingling in both hands (Primary Dx) 11/29/2024 Results Follow-Up [facility] [address] [place] [address] Mandie Arriola NP 11/29/2024 Orders Only [facility] [address] [place] [address] Unallocated, Isabelle Mcclain MD 11/29/2024 Travel 11/26/2024 Travel 09/17/2024 8:30 AM EDT Office Visit [facility] [address] [place] [address] Daja Phipps, Type 2 diabetes mellitus with diabetic microalbuminuria, without long-term current use of insulin (HCC) (Primary Dx); Neuropathic spondylopathy of lumbosacral region; Glucosuria; Atherosclerosis of aorta; History of pulmonary embolus (PE); GERD without esophagitis 09/17/2024 Travel 09/10/2024 Travel from Last 3 Months Immunizations Immunization Administration Dates Next Due Influenza, High Dose Seasona l, Preservative Free 04/17/2021 Influenza, Seasonal, Quadriv alent, Adjuvanted 03/01/2023 Influenza, Unspecified 03/01/2023,2021,04/17/2021,2020,02/09/2020,03/05/2019 Influenza, injectable, MDCK, preservative free, quadrivalent 03/23/2022 Influenza, injectable, quadr ivalent, preservative free 03/18/2021,03/17/2021,03/20/2017,2015 Influenza, live, intranasal 03/02/2019 Influenza, seasonal, injectable 02/09/2020 Influenza, seasonal, intrade rmal, preservative free 02/04/2020,03/05/2019,03/13/2018,2014 Influenza, trivalent, adjuvanted 02/16/2024 Moderna Bivalent Booster Vaccination 03/23/2022, 03/23/2022 Moderna SARS-CoV-2 50mcg/0.5 mL Booster 03/23/2022 Moderna SARS-CoV-2 Vaccination 09/06/2020,2020 Pfizer Matthews Cap SARS-CoV-2 Vaccination 09/27/2021 Pfizer Purple Cap SARS-CoV-2 Vaccination 03/17/2021,09/05/2020,08/15/2020 Pneumococcal Conjugate PCV 20 12/13/2022, 023 RSV, recombinant, protein angulo bunit RSVpreF, adjuvant reconstitu, 120mcg/0.5mL, PF (Arexvy) 04/19/2023 SARS-COV-2 (COVID-19) vaccin e, mRNA, spike protein, LNP, PF, susie-sucrose, 30 mcg/0.3 mL 03/01/2023 SARS-COV-2 (COVID-19) vaccin e, mRNA, spike protein, LNP, bivalent, preservative free, 30 mcg/0.3 mL dose, susie-sucrose formulation 03/23/2022 SARS-CoV-2, Unspecified 09/27/2021 Tdap 02/16/2024 Zoster, Recombinant 04/19/2023,12/13/2022 Family History Medical History Relation Name Comments No Known Problems Brother Healthy Heart disease Father Jason Diabetes Maternal Grandfather Ray Heart disease Maternal Grandfather Ray Hypertension Maternal Grandfather Ray Arthritis Mother Fe Diabetes Mother Fe Obesity Mother Fe Ovarian cancer Mother Fe Melanoma Neg Hx Relation Name Status Comments Brother 1 Brother Father Jason (Age 65) a t age 65 Maternal Grandfather Ray Mother Fe (Age 83) a t age 83 Social History Tobacco Use Types Packs/Day Years Used Date Smoking Tobacco: Never Smokeless Tobacco: Never Tobacco Cessation:Counseling Given: No Alcohol Use Standard Drinks/Week Comments Yes 5 [...] 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 on file 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 on file 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 Not on file Not on file Not on file Last Filed Vital Signs Vital Sign Reading Time Taken Comments Blood Pressure 132/84 11/29/2024 8:44 AM EDT Pulse 80 11/29/2024 8:44 AM EDT Temperature 35.9 C (96.7 F) 04/03/2023 11:23 AM EDT Respiratory Rate 16 11/29/2024 8:44 AM EDT Oxygen Saturation 98% 11/29/2024 8:44 AM EDT Inhaled Oxygen Concentration - - Weight 97.1 kg (214 lb) 09/17/2024 8:51 AM EDT Height 180.3 cm (5' 11 ) 01/01/2023 9:14 AM EDT Body Mass Index 29.85 01/01/2023 9:14 AM EDT Plan of Treatment Upcoming Encounters Date Type Department Care Team (Late st Contact Info) Description 12/10/2024 7:30 AM EDT Ancillary Procedure [facility] [address] [place] [address] 01/21/2025 10:00 AM EDT Office Visit [facility] [address] [place] [address] Daja Phipps DO [address] [place] [address] 02/24/2025 8:45 AM EDT Office Visit [facility] [address] [place] [address] Jana Plummer MD [address] [place] [address] Health Maintenance Due Date Last Done Comments CT Colonography 1957 FIT-DNA 1957 FIT 1957 FOBT 1955 Sigmoidoscopy 1957 Diabetes: Hemoglobin A1C 12/17/202409/17/ 025, 05/17/2024, 01/16/2024, Additional history exists Medicare Annual Wellness (AWV) 01/15/2025 01/16/2024 , 12/22/2020 Influenza Vaccine (#1) 2025 , 03/01/2023, 03/01/2023, Additional history exists Diabetes: Urine Protein Screening 05/17/2025 05/17/2024, 05/06/2023, 05/11/2021 Diabetes: Retinopathy Screening 04/05/2026 04/05/2024, 02/15/2022, 02/09/2021, Additional history exists Colonoscopy 08/09/2027 08/08/2017, 01/2018, 08/08/2017 Colorectal Cancer Screening 08/09/2027 Pneumococcal Vaccine: 65+ Years Completed , 08/09/2022 Procedures Procedure Name Priority Date/Time Associated Diagnosis Comments XR CERVICAL SPINE 2-3 VIEWS Routine 11/29/2024 8:53 AM EDT Numbness and tingling in both hands XR ABDOMEN 1 VIEW Routine 11/26/2024 10: 04 AM EDT PSA, TOTAL Routine 11/26/2024 8:47 AM EDT POCT GLYCATED HEMOGLOBIN, TOTAL Routine 09/17/2024 8:51 AM EDT Type 2 diabetes mellitus with diabetic microalbuminuria, without long-term current use of insulin (HCC) MICROALBUMIN / CREATININE URINE RATIO Routine 05/17/2024 2:21 PM EST Type 2 diabetes mellitus without complication, without long-term current use of insulin (HCC) DIABETIC RETINOPATHY SCREENING - OU - BOTH EYES Routine 04/05/2024 3:35 PM EST COLONOSCOPY Routine 08/08/2017 12:00 PM EST from Last 3 Months or Most Recently Relevant to Health Maintenance Results * XR cervical spine 2 or [...] SIGNED BY: Osman Hall DO Mandie Arriola ENERGY BROKER IMG XR PROCEDURES Final Resu lt * XR abdomen 1 view (11/26/2024 10:04 AM EDT) Anatomical Region Laterality Modality Abdomen Radiographic Mary ging [facility] Provider Unallocated IMG XR PROCEDURES F inal Result * PSA (11/26/2024 8:47 AM EDT) Blood Venous blood specimen / Unknown [facility] Provider Unallocated MD LAB BLOOD ORDERABLE S Final Result * POCT glycated hemoglobin, total docked device (09/17/2024 8:51 AM EDT) Hemoglobin A1C 6.6 Blood 09/17/2024 8:51 AM EDT Daja Phipps DO POINT OF CARE TEST ENTE R/EDIT ORDERABLES Final Result * (ABNORMAL) Microalbumin / creatinine urine ratio (05/17/2024 2:21 PM EST) Creat Ur 220.6 Not Estab. mg/dL [facility] Albumin Ur 2,856.9 Not Estab. ug/mL [facility] Comment: Results confirmed on dilution. Alb/Creat Ratio Urine 1,295(H) 0 - 29 mg/g creat [facility] Comment: Normal: 0 - 29 Moderately increased: 30 - 300 Severely increased: >300 Urine Urine specimen obtained by clean catch procedure / Unknown 05/17/2024 2:21 PM EST 05/17/2024 Narrative [facility] - 05/18/2024 6:07 AM EST Performed at: [facility] [id number] Sap Fico Architect: Leonel Gold PhD, Phone: [phone] Daja Phipps DO LAB URINE ORDERABLES Fi nal Result [facility] * Diabetic Retinopathy Screening - OU - Both Eyes (04/05/2024 3:35 PM EST) Anatomical Region Laterality Modality Head Other Unknown Practice A OPHTH PHOTOGRAPHY Final Resul t * Colonoscopy (08/08/2017 12:00 PM EST) Anatomical Region Laterality Modality Endoscopy 08/08/2017 12:0 0 PM EST Narrative 08/08/2017 12:00 PM EST PERFORMED AT [facility] LOCATION:[id number] Procedure Note CONVERSION, GENERIC - 10/16/2022 PERFORMED AT [facility] LOCATION:[id number] us Elian Mandel MD ENDOSCOPY PROCEDURE ORDERABLES Final Result from Last 3 Months or Most Recently Relevant to Health Maintenance Insurance MEDICARE GENERIC COMMERCIAL Care Teams Supervisor Drying And Winding Relationship Specialty Start Date End Date Daja Phipps DO [address] [place] [address] PCP - General Internal Medicine 11/04/22 Jana Plummer MD [address] [place] [address] Referring Physician Dermatology 01/16/24
--- OUTSIDE RECORDS SUMMARY | 2024-12-07 09:01 | XMS_ITS | Encounter Summary ---
Author Organization [facility] Address [address] [place] [address] Care Team Providers Care Technical Training Specialist Name Role Phone Daja Pugh DO Primary Care Provi reese Source Comments In the event this information is protected by the Federal Confidentiality of Alcohol and Drug AbusePatient Records regulations: The Federal rules restrict any use of the information to criminally investigate or prosecute any alcohol or drug abuse patient.[facility] Encounter Details Date Type Department Care Team (Late st Contact Info) Description 07/26/2022 Patient Msg Pre Anesthesia [address] [place], [place] [id number] Rubia Murphy PA-C [address] [place] [address] PATIENT PREOPERATIVE INSTRUCTIONS Social History Tobacco Use Types Packs/Day Years Used Date Smoking Tobacco: Never Passive Smoke Exposure: Never Smokeless Tobacco: Never Alcohol Use Standard Drinks/Week Comments Not Currently 0 (1 standard drink = 0.6 oz pur e alcohol) occ Area Deprivation Index Answer Date Shivam rded National Score (1-100), lower number is lower ri sk 42 07/25/2022 State Score (1-10), lower number is lower risk N ot on file 07/25/2022 Data from: https://www.neighborhoodatlas.medicine.[facility].edu/. Last address used for calculation [address] 07/25/2022 Sex and Gender Information Value Date Recorded Sex Assigned at Not on file Legal Sex Male 9:24 AM EDT Gender Identity Not on file Sexual Orientation Not on file documented as of this encounter Plan of Treatment Not on file documented as of this encounter Visit Diagnoses Not on filedocumented in this encounter Care Teams Technical Training Specialist Relationship Specialty Start Date End Date Daja Pugh DO [address] [place] [address] PCP - General Internal Medicine 07/26/22 documented as of this encounter
--- OUTSIDE RECORDS SUMMARY | 2024-12-07 09:01 | XMS_ITS | Encounter Summary ---
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 Not on file Not on file Not on file documented as of this encounter Plan of Treatment Upcoming Encounters Date Type Department Care Team (Late st Contact Info) Description 12/10/2024 7:30 AM EDT Ancillary Procedure [facility] [address] [place] [id number] 01/21/2025 10:00 AM EDT Office Visit [facility] [address] [place] [address] Daja Phipps DO [address] [place] [address] 02/24/2025 8:45 AM EDT Office Visit [facility] [address] [place] [address] Jana Plummer MD [address] [place] [address] documented as of this encounter Visit Diagnoses Not on filedocumented in this encounter Care Teams Haircutter Relationship Specialty Start Date End Date Daja Phipps DO [address] [place] [address] PCP - General Internal Medicine 11/04/22 Jana Plummer MD [address] [place] [address] Referring Physician Dermatology 01/16/24 documented as of this encounter
--- OUTSIDE RECORDS SUMMARY | 2024-12-07 09:01 | XMS_ITS | Encounter Summary ---
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 Not on file Not on file Not on file documented as of this encounter Plan of Treatment Upcoming Encounters Date Type Department Care Team (Late st Contact Info) Description 12/10/2024 7:30 AM EDT Ancillary Procedure [facility] [address] [place] [id number] 01/21/2025 10:00 AM EDT Office Visit [facility] [address] [place] [address] Daja Phipps DO [address] [place] [address] 02/24/2025 8:45 AM EDT Office Visit [facility] [address] [place] [address] Jana Plummer MD [address] [place] [address] documented as of this encounter Visit Diagnoses Not on filedocumented in this encounter Care Teams Lodging Facilities Attendant Relationship Specialty Start Date End Date Daja Phipps DO [address] [place] [address] PCP - General Internal Medicine 11/04/22 Jana Plummer MD [address] [place] [address] Referring Physician Dermatology 01/16/24 documented as of this encounter
--- OUTSIDE RECORDS SUMMARY | 2024-12-07 09:01 | XMS_ITS | Encounter Summary ---
Author Organization [facility] Address [address] [place] [address] Care Team Providers Care Oil And Gas Field Technician Name Role Phone Daja Pugh DO Primary Care Provi reese Source Comments In the event this information is protected by the Federal Confidentiality of Alcohol and Drug AbusePatient Records regulations: The Federal rules restrict any use of the information to criminally investigate or prosecute any alcohol or drug abuse patient.[facility] Encounter Details Date Type Department Care Team (Late st Contact Info) Description 05/29/2022 Patient Msg Ophthalmology [address] [place], [place] [id number] Provider, [facility] Surgery with Dr. Batista Social History Tobacco Use Types Packs/Day Years Used Date Smoking Tobacco: Never Passive Smoke Exposure: Never Smokeless Tobacco: Never Alcohol Use Standard Drinks/Week Comments Not Currently 0 (1 standard drink = 0.6 oz pur e alcohol) Sex and Gender Information Value Date Recorded Sex Assigned at Not on file Legal Sex Male 9:24 AM EDT Gender Identity Not on file Sexual Orientation Not on file documented as of this encounter Miscellaneous Notes * Telephone Encounter - Erum Koch - 05/30/2022 2:22 PM EST Spoke to pt and agreeable to Sx date 6-2-23 in [place]. Pt also requested to be put on wait list. Prefers Fridays. Pt OK w [facility] VV. Advised that all appts will be schd and a myc msg will be sent to him to review appts / sx reminders. * Telephone Encounter - Hayley Beck - 05/29/2022 4:01 PM EST Called pt to assist in scheduling surgery left message for patient to return call to [phone] or to reply back to the [email or web address] message sent to schedule surgery. Good afternoon , Please see the approved case below: Patient Name: PORSHA GRACE DOS: 06/23/2022 Insurance: [facility] Approved or Denied: Approved CPT code(s) are approved or denied: 63094 [id number] (DEBORAH) Number of Approved days/valid dates: 06/23/2021 to 09/21/2022 1 visit Laterality: Bilateral Plan: Bilateral direct brow lift (lateral) Bilateral upper lids blepharoplasty Mac 1 hr Avoid aspirin, ibuprofen, nsaids, vitamin e , fish oil 2 wks prior and 1 wk post Stop multivitamin, 2 wks prior and 1 wk post + diabetic adjust medications day of surgery- Metformin Nothing to eat or drink 8 hrs prior to surgery except medicines day of with small sip of water Will need milk tanker driver if having sedation surgery For surgery at [place] or [place], call . documented in this encounter Plan of Treatment Not on file documented as of this encounter Visit Diagnoses Not on filedocumented in this encounter Care Teams Oil And Gas Field Technician Relationship Specialty Start Date End Date Daja Pugh DO [address] [place] [address] PCP - General Internal Medicine 07/26/22 documented as of this encounter
--- OUTSIDE RECORDS SUMMARY | 2024-12-07 09:01 | XMS_ITS | Encounter Summary ---
Author Organization [facility] Address [address] [place] [address] Care Team Providers Care Range Management Specialist Name Role Phone Daja Phipps DO Primary Care Provider Jana Plummer MD Unavailable Encounter Details Date Type Department Care Team (Late st Contact Info) Description 11/04/2022 Orders Only [facility] [address] [place] [address] Daja Phipps, DO [address] [place] [address] Social History Tobacco Use Types Packs/Day Years [...] AM EDT Ancillary Procedure [facility] [address] [place] [address] 01/21/2025 10:00 AM EDT Office Visit [facility] [address] [place] [phone] Daja Phipps DO [address] [place] [address] 02/24/2025 8:45 AM EDT Office Visit [facility] [address] [place] [phone] Jana Plummer MD [address] [place] [address] documented as of this encounter Visit Diagnoses Not on filedocumented in this encounter Care Teams Range Management Specialist Relationship Specialty Start Date End Date Daja Phipps DO [address] [place] [address] PCP - General Internal Medicine 11/04/22 Jana Plummer MD [address] [place] [address] Referring Physician Dermatology 01/16/24 documented as of this encounter
--- OUTSIDE RECORDS SUMMARY | 2024-12-07 09:01 | XMS_ITS | Encounter Summary ---
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 MRI was approved and he has been scheduled documented in this encounter Plan of Treatment Upcoming Encounters Date Type Department Care Team (Late st Contact Info) Description 12/10/2024 7:30 AM EDT Ancillary Procedure [facility] [address] [place] [address] 01/21/2025 10:00 AM EDT Office Visit [facility] [address] [place] [address] Daja Phipps DO [address] [place] [address] 02/24/2025 8:45 AM EDT Office Visit [facility] [address] [place] [address] Jana Plummer MD [address] [place] [address] documented as of this encounter Visit Diagnoses Not on filedocumented in this encounter Care Teams Strip Deburrer Relationship Specialty Start Date End Date Daja Phipps DO [address] [place] [address] PCP - General Internal Medicine 11/04/22 Jana Plummer MD [address] [place] [address] Referring Physician Dermatology 01/16/24 documented as of this encounter
--- OUTSIDE RECORDS SUMMARY | 2024-12-07 09:01 | XMS_ITS | Encounter Summary ---
Author Organization [facility] Address [address] [facility] [place] [address] Care Team Providers Care Rehabilitation Attendant Name Role Phone Daja Phipps DO Primary Care Provider Jana Plummer MD Unavailable [phone] Encounter Details Date Type Department Care Team (Late st Contact Info) Description 11/02/2022 Abstract [facility] [address] [facility] [address] [place] [phone] Guillermo Garcia MD [address] [facility] [address] [place] [address] Social History Tobacco Use Types Packs/Day Years Used Date Smoking Tobacco: Never Assessed Sex and Gender Information Value Date Recorded Sex Assigned at Male 11/07/2022 11:39 AM EDT Legal Sex Male 6:35 PM EDT Gender Identity Male 08/14/2022 6:35 PM EDT Sexual Orientation Straight 11/07/2022 11 :39 AM EDT documented as of this encounter Plan of Treatment Upcoming Encounters Date Type Department Care Team (Late st Contact Info) Description 12/10/2024 7:30 AM EDT Ancillary Procedure [facility] [address] [place] [address] 01/21/2025 10:00 AM EDT Office Visit [facility] [address] [place] [phone] CalderónDaja Guerrero DO [address] [place] [address] 02/24/2025 8:45 AM EDT Office Visit [facility] [address] [place] [address] Jana Plummer MD [address] [place] [address] documented as of this encounter Visit Diagnoses Not on filedocumented in this encounter Care Teams Rehabilitation Attendant Relationship Specialty Start Date End Date Daja Phipps DO [address] [place] [address] PCP - General Internal Medicine 11/04/22 Jana Plummer MD [address] [place] [address] Referring Physician Dermatology 01/16/24 documented as of this encounter
--- OUTSIDE RECORDS SUMMARY | 2024-12-07 09:01 | XMS_ITS | Encounter Summary ---
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 Not on file Not on file Not on file documented as of this encounter Plan of Treatment Upcoming Encounters Date Type Department Care Team (Late st Contact Info) Description 12/10/2024 7:30 AM EDT Ancillary Procedure [facility] [address] [phone] 01/21/2025 10:00 AM EDT Office Visit [facility] [address] [place] [address] Daja Phipps DO [address] [place] [address] 02/24/2025 8:45 AM EDT Office Visit [facility] [address] [place] [address] Jana Plummer MD [address] [place], [place] [address] documented as of this encounter Procedures Procedure Name Priority Date/Time Associated Diagnosis Comments DIABETIC RETINOPATHY SCREENING - OU - BOTH EYES Routine 04/05/2024 3:35 PM EST documented in this encounter Results * Diabetic Retinopathy Screening - OU - Both Eyes (04/05/2024 3:35 PM EST) Anatomical Region Laterality Modality Head Other us Unknown Practice A OPHTH PHOTOGRAPHY Final Resul t documented in this encounter Visit Diagnoses Not on filedocumented in this encounter Care Teams Bar Captain Relationship Specialty Start Date End Date Daja Phipps DO [address] [place] [address] PCP - General Internal Medicine 11/04/22 Jana Plummer MD [address] [place] [address] Referring Physician Dermatology 01/16/24 documented as of this encounter
--- OUTSIDE RECORDS SUMMARY | 2024-12-07 09:02 | XMS_ITS | Encounter Summary ---
Author Organization [facility] Address [address] [facility] [place] [address] Care Team Providers Care Field Assembly Supervisor Name Role Phone Daja Phipps DO Primary Care Provider Jana Plummer MD Unavailable [phone] Encounter Details Date Type Department Care Team (Late st Contact Info) Description 01/29/2023 Orders Only [facility] [address] [place] [address] A, Unknown Practice [address] [place], [place] [address] Social History Tobacco Use Types Packs/Day Years Used Date Smoking Tobacco: Never Smokeless Tobacco: Never Alcohol Use Standard Drinks/Week Comments Yes 5 (1 standard drink = 0.6 oz pure alcohol) caffeine intake: 2-3 cups per day of coffee ; tea AUDIT-C Answer Date Recorded Q1: How often [...] 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 Not on file documented as of this encounter Plan of Treatment Upcoming Encounters Date Type Department Care Team (Late st Contact Info) Description 12/10/2024 7:30 AM EDT Ancillary Procedure [facility] [place] [address] 01/21/2025 10:00 AM EDT Office Visit [facility] [address] [place] [address] Daja Phipps, DO [address] [place] [address] 02/24/2025 8:45 AM EDT Office Visit [facility] [address] [place] [address] Jana Plummer MD [address] [place] [address] documented as of this encounter Procedures Procedure Name Priority Date/Time Associated Diagnosis Comments SCANNED LABS Routine 01/21/2023 8:33 AM EDT documented in this encounter Results * SCANNED LABS (01/21/2023 8:33 AM EDT) us Unknown Practice A LAB CHG PERFORMABLES Final Re sult documented in this encounter Visit Diagnoses Not on filedocumented in this encounter Care Teams Field Assembly Supervisor Relationship Specialty Start Date End Date Daja Phipps DO [address] [place] [address] PCP - General Internal Medicine 11/04/22 Jana Plummer MD [address] [place] [address] Referring Physician Dermatology 01/16/24 documented as of this encounter
--- OUTSIDE RECORDS SUMMARY | 2024-12-07 09:02 | XMS_ITS | Clinical Summary ---
Author Organization [facility] Address [address] [place] [address] Care Team Providers Care Bell Person Name Role Phone Daja Pugh DO Primary Care Provi reese Allergies Active Allergy Reactions Criticality Noted Date Comments Aluminum Cough,Rash 02/06/2021 Lactase GI Upset 07/26/2022 Sitagliptin Diarrhea 02/06/2021 Medications glyBURIDE (DIABETA) 5 mg tablet Take 5 mg by mouth twice daily. 2 Active metFORMIN ER (GLUCOPHAGE XR) 750 mg 24 hr tablet TAKE 3 TABLETS BY MOUTH once DAILY with a meal 2 Active omeprazole (PRILOSEC) 20 mg capsule Omeprazole Active June 04, 2017 10:17am 8 Active OZEMPIC 1 mg/dose (4 mg/3 mL) pen 2 Active fexofenadine (LAN) 180 mg tablet Take 180 mg by mouth once daily as needed. 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 Assessment & Plan (07/29/2022 10:15 AM EST): Type 2 diabetes mellitus wit hout complication, without long-term current use of insulin 07/26/2022 Gastroesophageal reflux disease 07/26/2022 Class 1 obesity in adult 07/26/2022 Immunizations Immunization Administration Dates Next Due COVID-19 original vaccine, a ge 12+ yr, monovalent (PFIZER-BIONTECH - CASTANEDA TOP) 09/27/2021 COVID-19 original vaccine, a ge 12+ yr, monovalent (PFIZER-BIONTECH - PURPLE TOP) 03/18/2021,09/06/2020,08/16/2020 COVID-19 vaccine, age 12+ yr , bivalent (PFIZER-BIONTECH) 03/23/2022 Family History Medical History Relation Comments Cancer Mother Macular Degen Mother Diabetes Paternal Grandfather Hypertension Paternal Grandfather Relation Status Comments Mother Paternal Grandfather Social History Tobacco Use Types Packs/Day Years Used Date Smoking Tobacco: Never Passive Smoke Exposure: Never Smokeless Tobacco: Never Tobacco Cessation:Counseling Given: Not Answered Alcohol Use Standard Drinks/Week Comments Not Currently 0 (1 standard drink = 0.6 oz pur e alcohol) occ Area Deprivation Index Answer Date Shivam rded National Score (1-100), lower number is lower ri sk 42 07/25/2022 State Score (1-10), lower number is lower risk N ot on file 07/25/2022 Data from: https://www.neighborhoodatlas.medicine.[facility].edu/. Last address used for calculation [address] [facility] 07/25/2022 Sex and Gender Information Value Date Recorded Sex Assigned at Not on file Legal Sex Male 9:24 AM EDT Gender Identity Not on file Sexual Orientation Not on file Last Filed Vital Signs Vital Sign Reading Time Taken Comments Blood Pressure 141/82 08/02/2022 8:55 AM EST Pulse 85 08/02/2022 8:55 AM EST Temperature 36.8 C (98.3 F) 08/02/2022 8:45 AM EST Respiratory Rate 16 08/02/2022 8:55 AM EST Oxygen Saturation 94% 08/02/2022 8:55 AM EST Inhaled Oxygen Concentration - - Weight 98.4 kg (217 lb) 07/26/2022 9:42 AM EST Height 180.3 cm (5' 11 ) 07/26/2022 9:42 AM EST Body Mass Index 30.27 07/26/2022 9:42 AM EST Plan of Treatment Health Maintenance Due Date Last Done Comments Diabetic Foot Exam 1967 Dilated Retinal Exam 1967 Urine Albumin:Creatinine Ratio 1967 Annual PCP Team Chronic Dise ase Visit 1975 Anxiety Screening 1975 Depression Screening 1975 Hepatitis C Screening 1975 LDL Cholesterol 1975 DTaP,Tdap,Td Vaccine (1 - Tdap) 1976 CT Colonography 2002 Cologuard (FIT-DNA) 2002 Colonoscopy 2002 Colorectal Cancer Screening 2002 Fecal Occult Blood 2002 Sigmoidoscopy 2002 Shingrix Vaccine (1 of 2) 2007 HbA1C 11/09/2021 05/11/2021, 072 07/2020, 08/18/2020, Additional history exists Covid-19 Vaccine (2023-2 5 season) 2024 03/23/2022, 09/27/2021, 03/18/2021, Additional history exists Advance Directive Discussion 06/02/2024 Influenza Vaccine (#1) 2025 , 04/17/2021, 03/18/2021, Additional history exists Prostate Cancer Screening Discussion 05/11/2026 05/11/2021 RSV Vaccine (1 - 1-dose 75+ series) 2032 Pneumococcal Vaccine: 50+ Completed 08/09/2022 Insurance [facility] [employer] Care Teams Bell Person Relationship Specialty Start Date End Date Daja Pugh DO [address] [facility] [address] [place] [address] PCP - General Internal Medicine 07/26/22
--- OUTSIDE RECORDS SUMMARY | 2024-12-07 09:02 | XMS_ITS | Encounter Summary ---
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 No / Unsure 12/06/2022 11:32 AM EDT documented as of this encounter Plan of Treatment Upcoming Encounters Date Type Department Care Team (Late st Contact Info) Description 12/10/2024 7:30 AM EDT Ancillary Procedure [facility] [address] [address] 01/21/2025 10:00 AM EDT Office Visit [facility] [address] [place] [address] Daja Phipps DO [address] [place] [address] 02/24/2025 8:45 AM EDT Office Visit [facility] [address] [place] [address] Jana Plummer MD [address] [place] [address] documented as of this encounter Procedures Procedure Name Priority Date/Time Associated Diagnosis Comments COLONOSCOPY Routine 08/08/2017 1:41 PM EST documented in this encounter Results * Colonoscopy (08/08/2017 1:41 PM EST) Anatomical Region Laterality Modality Endoscopy us Unknown Practice A ENDOSCOPY PROCEDURE ORDERABLE S Final Result documented in this encounter Visit Diagnoses Not on filedocumented in this encounter Care Teams Hand Blocker Relationship Specialty Start Date End Date Daja Phipps DO [address] [place] [address] PCP - General Internal Medicine 11/04/22 Jana Plummer MD [address] [place] [address] Referring Physician Dermatology 01/16/24 documented as of this encounter
--- OUTSIDE RECORDS SUMMARY | 2024-12-07 09:02 | XMS_ITS | Encounter Summary ---
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 No / Unsure 02/20/2023 3:04 PM EDT documented as of this encounter Plan of Treatment Upcoming Encounters Date Type Department Care Team (Late st Contact Info) Description 12/10/2024 7:30 AM EDT Ancillary Procedure [facility] MR [address] [place] [address] 01/21/2025 10:00 AM EDT Office Visit [facility] [address] [place] [address] Daja Phipps DO [address] [place] [address] 02/24/2025 8:45 AM EDT Office Visit [facility] [address] [place] [address] Jana Plummer MD [address] [place] [address] documented as of this encounter Visit Diagnoses Not on filedocumented in this encounter Care Teams Financial Professional Relationship Specialty Start Date End Date Daja Phipps DO [address] [place] [address] PCP - General Internal Medicine 11/04/22 Jana Plummer MD [address] [place] [address] Referring Physician Dermatology 01/16/24 documented as of this encounter
--- OUTSIDE RECORDS SUMMARY | 2024-12-07 09:02 | XMS_ITS | Encounter Summary ---
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 Not on file Not on file Not on file documented as of this encounter Plan of Treatment Upcoming Encounters Date Type Department Care Team (Late st Contact Info) Description 12/10/2024 7:30 AM EDT Ancillary Procedure [facility] [place] [address] 01/21/2025 10:00 AM EDT Office Visit [facility] [address] [place] [phone] Daja Phipps DO [address] [place] [address] 02/24/2025 8:45 AM EDT Office Visit [facility] [address] [place] [address] Jana Plummer MD [address] [place] [address] documented as of this encounter Procedures Procedure Name Priority Date/Time Associated Diagnosis Comments ESOPHAGOSCOPY Routine 01/15/2023 3:08 PM EDT documented in this encounter Results * Esophagoscopy (01/15/2023 3:08 PM EDT) Anatomical Region Laterality Modality Endoscopy us Unknown Practice A ENDOSCOPY PROCEDURE ORDERABLE S Final Result documented in this encounter Visit Diagnoses Not on filedocumented in this encounter Care Teams National Account Director Relationship Specialty Start Date End Date Daja Phipps DO [address] [place] [address] PCP - General Internal Medicine 11/04/22 Jana Plummer MD [address] [place] [address] Referring Physician Dermatology 01/16/24 documented as of this encounter
--- OUTSIDE RECORDS SUMMARY | 2024-12-07 09:02 | XMS_ITS | Clinical Summary ---
Author Organization [facility] Address [address] [place] [address] Care Team Providers Care Highballer Name Role Phone Elian Mandel MD Primary Care Provider [phone] Social History Tobacco Use Types Packs/Day Years Used Date Smoking Tobacco: Never Assessed Sex and Gender Information Value Date Recorded Sex Assigned at Not on file Legal Sex Male 12:40 PM EDT Gender Identity Not on file Sexual Orientation Not on file Plan of Treatment Not on file Care Teams Highballer Relationship Specialty Start Date End Date Elian Mandel MD PCP - General 10/06/15
--- OUTSIDE RECORDS SUMMARY | 2024-12-07 09:02 | XMS_ITS | Encounter Summary ---
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 No / Unsure 02/20/2023 3:04 PM EDT documented as of this encounter Miscellaneous Notes * Result Encounter Note - Mandie Arriola NP - 03/17/2023 2:05 PM EDT No diabetic retinopathy documented in this encounter Plan of Treatment Upcoming Encounters Date Type Department Care Team (Late st Contact Info) Description 12/10/2024 7:30 AM EDT Ancillary Procedure [facility] [address] [address] 01/21/2025 10:00 AM EDT Office Visit [facility] [address] [place] [address] Daja Phipps DO [address] [place], [place] [phone] 02/24/2025 8:45 AM EDT Office Visit [facility] [address] [place] [address] Jana Plummer MD [address] [place], [place] [phone] documented as of this encounter Procedures Procedure Name Priority Date/Time Associated Diagnosis Comments DIABETES EYE EXAM Routine 03/17/2023 2:05 PM EDT documented in this encounter Results * Diabetes Eye Exam (03/17/2023 2:05 PM EDT) us Unknown Practice A HEALTH MAINTENANCE Final Resu lt documented in this encounter Visit Diagnoses Not on filedocumented in this encounter Care Teams Test Technician Relationship Specialty Start Date End Date Stephane-Daja Reyna DO [address] [place] [address] PCP - General Internal Medicine 11/04/22 Jana Plummer MD [address] [place] [address] Referring Physician Dermatology 01/16/24 documented as of this encounter
--- NOTE | 2024-12-07 09:05 | ECG_ITS ---
[facility] Test Date: 2024-12-07 Pat Name: PORSHA HUA Department: Room: - Gender: Male [employer] Officer: : 1955 Requested By: RADHA HAMILTON Order Number: [id number] Reading MD: LUNA MATA Measurements Intervals [place] Rate: 73 P: 9 CO: 149 QRS: -4 QRSD: 99 T: -30 QT: 386 QTc: 427 Interpretive Statements SINUS RHYTHM INFERIOR MYOCARDIAL INFARCTION [40+ ms Q WAVE AND/OR ST/T ABNORMALITY IN II/aVF], OF INDETERMINATE AGE MODERATE T-WAVE ABNORMALITY, CONSIDER ANTEROLATERAL ISCHEMIA [-0.1+ mV T WAVE IN V3-V6] No previous ECG available for comparison Electronically Signed On 12-09-2024 9:00:29 EDT by LUNA MATA
--- NOTE | 2024-12-07 10:07 | PM.PRESUREVA ---
History of Present Illness History of Present Illness Chief complaint: Left Kidney Stone Narrative: Patient presents for presurgical testing. Please see HPI from Dr. Roland dated December 01, 2024. Review of Systems ROS Narrative Please see ROS from Dr. Roland dated December 01, 2024. [facility] Medical History (Updated 12/07/24 @ 10:01 by Nubia Reeves NP) Dental root implant present ?Z97.2 - Presence of dental prosthetic device (complete) (partial) (ICD-10) Arthritis ?M19.90 - Unspecified osteoarthritis, unspecified site (ICD-10) Neck pain ?M54.2 - Cervicalgia (ICD-10) VARUN (acute kidney injury) ?N17.9 - Acute kidney failure, unspecified (ICD-10) Hematuria ?R31.9 - Hematuria, unspecified (ICD-10) Kidney stones ?N20.0 - Calculus of kidney (ICD-10) Seasonal allergies ?J30.2 - Other seasonal allergic rhinitis (ICD-10) Hernia ?K46.9 - Unspecified abdominal hernia without obstruction or gangrene (ICD-10) GERD (gastroesophageal reflux disease) ?K21.9 - Gastro-esophageal reflux disease without esophagitis (ICD-10) Salmonella (06/2023) ?A02.9 - Salmonella infection, unspecified (ICD-10) Elevated PSA ?R97.20 - Elevated prostate specific antigen [PSA] (ICD-10) Ptosis ?H02.409 - Unspecified ptosis of unspecified eyelid (ICD-10) Diabetes ?E11.9 - Type 2 diabetes mellitus without complications (ICD-10) Lung mass (2011) ?R91.8 - Other nonspecific abnormal finding of lung field (ICD-10) Pulmonary embolism (2011) ?I26.99 - Other pulmonary embolism without acute cor pulmonale (ICD-10) S/P extracorporeal shock wave therapy ?Z98.890 - Other specified postprocedural states (ICD-10) Surgical History (Updated 12/07/24 @ 10:01 by Nubia Reeves NP) History of biliary duct stent placement ?Z98.890 - Other specified postprocedural states (ICD-10) History of lung surgery (~2011) ?Z98.890 - Other specified postprocedural states (ICD-10) H/O eye surgery ?Z98.890 - Other specified postprocedural states (ICD-10) History of colonoscopy ?Z98.890 - Other specified postprocedural states (ICD-10) History of cholecystectomy ?Z90.49 - Acquired absence of other specified parts of digestive tract (ICD-10) History of hernia repair ?Z98.890 - Other specified postprocedural states (ICD-10) ?Z87.19 - Personal history of other diseases of the digestive system (ICD-10) S/P cystoscopy ?Z98.890 - Other specified postprocedural states (ICD-10) S/P ureteral stent placement ?Z96.0 - Presence of urogenital implants (ICD-10) History of spinal surgery ?Z98.890 - Other specified postprocedural states (ICD-10) Family History (Updated 12/07/24 @ 09:34 by Nubia Reeves NP) Other Family history of cancer Family history of diabetes mellitus Family history of heart disease Family history of stroke Social History (Updated 12/07/24 @ 09:29 by Nubia Reeves NP) Within the past year, how often did you have a drink containing alcohol: monthly or less Smoking status: Never smoker Non-prescribed substance use: denies use Previous occupational history: Retired Highest level of school completed/degree received: high school graduate Meds Home Medications and Allergies Home Medications ?Medication ?Instructions ?Recorded ?Confirmed ?Type celecoxib 200 mg capsule 200 mg PO Q24H PRN pain 12/07/24 12/07/24 History fexofenadine 180 mg tablet 180 mg PO Q24H PRN allergies 12/07/24 12/07/24 History glyburide 5 mg tablet 5 mg PO BID 12/07/24 12/07/24 History metformin 500 mg tablet,extended 1,000 mg PO BID 12/07/24 12/07/24 History release 24 hr omeprazole 20 mg capsule,delayed 20 mg PO DAILY 12/07/24 12/07/24 History release potassium citrate 15 mEq (1,620 30 meq PO BID 12/07/24 12/07/24 History mg) tablet,extended release semaglutide 2 mg/dose (8 mg/3 mL) 2 mg subcut QWEEK 12/07/24 12/07/24 History subcutaneous pen injector (Ozempic) Allergies Allergy/AdvReac Type Severity Reaction Status Date / Time aluminum Allergy throat Verified 12/07/24 09:24 swelling lactose Allergy Abdominal Verified 12/07/24 09:24 Pain sitagliptin (From Januvia) Allergy Diarrhea Verified 12/07/24 09:24 Exam Narrative Exam Narrative: Constitutional: Awake, alert, comfortable, well-appearing, nontoxic, interactive, vital signs as charted Head: Normocephalic, atraumatic Neck: Supple, normal appearance, normal range of motion, no meningeal signs, no lymphadenopathy Respiratory: No respiratory distress, breath sounds clear Cardiovascular: Regular rate and rhythm, strong and regular heart tones Abdomen: Nontender, normal bowel sounds, soft, no CVA tenderness Musculoskeletal: Normal gait, no swelling or edema Skin: No rashes or induration, no lesions, only visible skin inspected Neuro: No neurological deficits, normal sensation Psychiatric: Oriented ?3, normal affect Assessment and Plan Assessment and Plan (1) Kidney stones: (2) Hematuria: Plan Left ESWL, possible cystoscopy, left stent placement scheduled with Dr. Roland December 09, 2024.
[2024-12-07 10:54] LABS: Hematocrit 37.5 % (42.0-54.0); Hemoglobin 13.0 g/dL (14.0-18.0); Immature Granulocytes Abs Auto 0.01 10^3/uL (0.00-0.03); Immature Granulocytes Pct Auto 0.2 % (0.0-0.5); Lymphocytes Absolute Auto 0.7 10^3/uL (1.2-3.8); Mean Corpuscular HGB Conc 34.7 g/dL (29.9-35.2); Mean Corpuscular Hemoglobin 32.3 pg (25.9-34.0); Mean Corpuscular Volume 93.1 fL (80.0-94.0); Platelet Count 219 10^3/uL (150-450); Red Blood Count 4.03 10^6/uL (4.70-6.10); White Blood Count 4.9 10^3/uL (4.0-11.0)
[2024-12-07 11:12] LABS: INR 0.95; Partial Thromboplastin Time 27.1 sec (22.3-36.2); Prothrombin Time 10.1 sec (9.0-11.6)
[2024-12-07 11:29] LABS: Anion Gap 14.9; Blood Urea Nitrogen 19.0 mg/dL (7.0-18.0); Calcium 8.7 mg/dL (8.5-10.1); Carbon Dioxide 28.0 mmol/L (21.0-32.0); Chloride 106 mmol/L (98-107); Estimated GFR (African America >60 (>=60 mL/min/1.73m^2); Estimated GFR (Non-African Ame 56 (>=60 mL/min/1.73m^2); Glucose 129 mg/dL (74-106); Potassium 4.9 mmol/L (3.5-5.1); Sodium 144 mmol/L (136-145)
== END 2024-12-07 08:57 | disposition home or self-care (01) ==
LOC: PST 08:59
PROVIDERS: PCP Internal Medicine; Visit Provider Urology
DX: Z01.810 Encounter for preprocedural cardiovascular examination (principal); Z01.812 Encounter for preprocedural laboratory examination; Z01.818 Encounter for other preprocedural examination; N20.0 Calculus of kidney; R31.9 Hematuria, unspecified
CPT/HCPCS: 80048; 85025; 85610; 85730; 93005; G0463

== ENCOUNTER 2025-03-10 10:56 | Outpatient (OUT) | payer MEDICARE, OTHER, SELFPAY ==
[2025-03-10 11:47] LABS: Hematocrit 34.8 % (42.0-54.0); Hemoglobin 12.3 g/dL (14.0-18.0); Immature Granulocytes Abs Auto 0.01 10^3/uL (0.00-0.03); Immature Granulocytes Pct Auto 0.2 % (0.0-0.5); Lymphocytes Absolute Auto 0.8 10^3/uL (1.2-3.8); Mean Corpuscular HGB Conc 35.3 g/dL (29.9-35.2); Mean Corpuscular Hemoglobin 33.9 pg (25.9-34.0); Mean Corpuscular Volume 95.9 fL (80.0-94.0); Platelet Count 204 10^3/uL (150-450); Red Blood Count 3.63 10^6/uL (4.70-6.10); White Blood Count 5.2 10^3/uL (4.0-11.0)
[2025-03-10 11:54] LABS: Anion Gap 13.1; Blood Urea Nitrogen 25.0 mg/dL (7.0-18.0); Calcium 9.1 mg/dL (8.5-10.1); Carbon Dioxide 29.3 mmol/L (21.0-32.0); Chloride 102 mmol/L (98-107); Estimated GFR (African America >60 (>=60 mL/min/1.73m^2); Estimated GFR (Non-African Ame 54 (>=60 mL/min/1.73m^2); Glucose 187 mg/dL (74-106); Potassium 5.4 mmol/L (3.5-5.1); Sodium 139 mmol/L (136-145)
[2025-03-10 12:03] LABS: INR 0.94; Partial Thromboplastin Time 26.3 sec (22.3-36.2); Prothrombin Time 10.0 sec (9.0-11.6)
--- NOTE | 2025-03-10 12:33 | PM.PRESUREVA ---
History of Present Illness History of Present Illness Chief complaint: left kidney stone Narrative: Patient presents for presurgical testing. The patient is scheduled for an ESWL with Dr. Roland. His procedure was originally scheduled in November 2024 but he had an abnormal EKG at [facility] and subsequently was sent for cardiac clearance. He underwent cardiac testing including a stress test and cardiac catheterization and has now been cleared for his procedure. The patient states he is doing well with his new medications and is feeling overall well and has no complaints at this time. Review of Systems ROS Narrative REVIEW OF SYSTEMS: Negative except as stated in HPI, ten or more systems reviewed. Constitutional: No fever, chills, weakness ENT: No sore throat or epistaxis Cardiovascular: No edema, chest pain, palpitations, or activity intolerance Respiratory: No shortness of breath, cough, or wheezing Musculoskeletal: No joint pain or swelling Gastrointestinal: No abdominal pain, constipation, diarrhea, or vomiting Genitourinary: No dysuria or hematuria Neurological: No numbness, tingling, weakness, or headache Psychiatric: No mood changes [facility] Medical History (Updated 03/10/25 @ 11:18 by Nubia Reeves NP) Hyperlipidemia ?E78.5 - Hyperlipidemia, unspecified (ICD-10) Aortic atherosclerosis ?I70.0 - Atherosclerosis of aorta (ICD-10) Myocardial infarction ?I21.9 - Acute myocardial infarction, unspecified (ICD-10) Abnormal EKG ?R94.31 - Abnormal electrocardiogram [ECG] [EKG] (ICD-10) Ischemic cardiomyopathy ?I25.5 - Ischemic cardiomyopathy (ICD-10) Edema ?R60.9 - Edema, unspecified (ICD-10) CAD (coronary artery disease) ?I25.10 - Atherosclerotic heart disease of [place] coronary artery without angina pectoris (ICD-10) Dental root implant present ?Z97.2 - Presence of dental prosthetic device (complete) (partial) (ICD-10) Arthritis ?M19.90 - Unspecified osteoarthritis, unspecified site (ICD-10) Neck pain ?M54.2 - Cervicalgia (ICD-10) VARUN (acute kidney injury) ?N17.9 - Acute kidney failure, unspecified (ICD-10) Hematuria ?R31.9 - Hematuria, unspecified (ICD-10) Kidney stones ?N20.0 - Calculus of kidney (ICD-10) Seasonal allergies ?J30.2 - Other seasonal allergic rhinitis (ICD-10) Hernia ?K46.9 - Unspecified abdominal hernia without obstruction or gangrene (ICD-10) GERD (gastroesophageal reflux disease) ?K21.9 - Gastro-esophageal reflux disease without esophagitis (ICD-10) Salmonella (06/2023) ?A02.9 - Salmonella infection, unspecified (ICD-10) Elevated PSA ?R97.20 - Elevated prostate specific antigen [PSA] (ICD-10) Ptosis ?H02.409 - Unspecified ptosis of unspecified eyelid (ICD-10) Diabetes ?E11.9 - Type 2 diabetes mellitus without complications (ICD-10) Lung mass (2011) ?R91.8 - Other nonspecific abnormal finding of lung field (ICD-10) Pulmonary embolism (2011) ?I26.99 - Other pulmonary embolism without acute cor pulmonale (ICD-10) S/P extracorporeal shock wave therapy ?Z98.890 - Other specified postprocedural states (ICD-10) Surgical History (Updated 03/10/25 @ 11:09 by Nubia Reeves NP) History of cardiac catheterization (02/08/25) ?Z98.890 - Other specified postprocedural states (ICD-10) History of biliary duct stent placement ?Z98.890 - Other specified postprocedural states (ICD-10) History of lung surgery (~2011) ?Z98.890 - Other specified postprocedural states (ICD-10) H/O eye surgery ?Z98.890 - Other specified postprocedural states (ICD-10) History of colonoscopy ?Z98.890 - Other specified postprocedural states (ICD-10) History of cholecystectomy ?Z90.49 - Acquired absence of other specified parts of digestive tract (ICD-10) History of hernia repair ?Z98.890 - Other specified postprocedural states (ICD-10) ?Z87.19 - Personal history of other diseases of the digestive system (ICD-10) S/P cystoscopy ?Z98.890 - Other specified postprocedural states (ICD-10) S/P ureteral stent placement ?Z96.0 - Presence of urogenital implants (ICD-10) History of spinal surgery ?Z98.890 - Other specified postprocedural states (ICD-10) Family History (Updated 12/07/24 @ 09:34 by Nubia Reeves NP) Other Family history of cancer Family history of diabetes mellitus Family history of heart disease Family history of stroke Social History (Updated 12/07/24 @ 09:29 by Nubia Reeves NP) Within the past year, how often did you have a drink containing alcohol: monthly or less Smoking status: Never smoker Non-prescribed substance use: denies use Previous occupational history: Retired Highest level of school completed/degree received: high school graduate Meds Home Medications and Allergies Home Medications ?Medication ?Instructions ?Recorded ?Confirmed ?Type celecoxib 200 mg capsule 200 mg PO Q24H PRN pain 12/07/24 03/10/25 History fexofenadine 180 mg tablet 180 mg PO Q24H PRN allergies 12/07/24 03/10/25 History glyburide 5 mg tablet 5 mg PO BID 12/07/24 03/10/25 History metformin 500 mg tablet,extended 1,000 mg PO BID 12/07/24 03/10/25 History release 24 hr omeprazole 20 mg capsule,delayed 20 mg PO DAILY 12/07/24 03/10/25 History release potassium citrate 15 mEq (1,620 30 meq PO BID 12/07/24 03/10/25 History mg) tablet,extended release semaglutide 2 mg/dose (8 mg/3 mL) 2 mg subcut QWEEK 12/07/24 03/10/25 History subcutaneous pen injector (Ozempic) aspirin 81 mg tablet,delayed 81 mg PO DAILY 03/10/25 03/10/25 History release (Adult Aspirin Regimen) isosorbide mononitrate 60 mg 60 mg PO BID 03/10/25 03/10/25 History tablet,extended release 24 hr losartan 25 mg tablet 25 mg PO DAILY 03/10/25 03/10/25 History metoprolol succinate 50 mg 50 mg PO DAILY 03/10/25 03/10/25 History tablet,extended release 24 hr multivitamin (Daily Multi-Vitamin 1 tab PO DAILY 03/10/25 03/10/25 History tablet) nitroglycerin 0.4 mg sublingual 0.4 mg buccal Q5M PRN chest pain 03/10/25 03/10/25 History tablet ranolazine 500 mg tablet,extended 500 mg PO Q12H 03/10/25 03/10/25 History release,12 hr rosuvastatin 5 mg tablet 5 mg PO DAILY 03/10/25 03/10/25 History spironolactone 25 mg tablet 25 mg PO DAILY 03/10/25 03/10/25 History Allergies Allergy/AdvReac Type Severity Reaction Status Date / Time aluminum Allergy throat Verified 03/10/25 11:21 swelling lactose Allergy Abdominal Verified 03/10/25 11:21 Pain sitagliptin ([facility]) Allergy Diarrhea Verified 03/10/25 11:21 Exam Narrative Exam Narrative: Constitutional: Awake, alert, comfortable, well-appearing, nontoxic, interactive, vital signs as charted Head: Normocephalic, atraumatic Neck: Supple, normal appearance, normal range of motion, no meningeal signs, no lymphadenopathy Respiratory: No respiratory distress, breath sounds clear Cardiovascular: Regular rate and rhythm, strong and regular heart tones Abdomen: Nontender, normal bowel sounds, soft, no CVA tenderness Musculoskeletal: Normal gait, no swelling or edema Skin: No rashes or induration, no lesions, only visible skin inspected Neuro: No neurological deficits, normal sensation Psychiatric: Oriented ?3, normal affect Assessment and Plan Assessment and Plan (1) Kidney stones: Plan Patient is scheduled for left ESWL, possible cystoscopy, left stent placement with Dr. Roland March 17, 2025.
== END 2025-03-10 10:57 | disposition home or self-care (01) ==
PROVIDERS: PCP Internal Medicine; Visit Provider Urology
DX: Z01.812 Encounter for preprocedural laboratory examination (principal); Z01.818 Encounter for other preprocedural examination; N20.0 Calculus of kidney
CPT/HCPCS: 36415; 80048; 85025; 85610; 85730; G0463

== ENCOUNTER 2025-03-10 11:00 | Outpatient (OUT) | payer MEDICARE, OTHER, SELFPAY | END 2025-03-10 11:01 | disposition home or self-care (01) | PROVIDERS: PCP Internal Medicine; Visit Provider Urology | DX: Z01.818 Encounter for other preprocedural examination (principal); R97.20 Elevated prostate specific antigen [PSA] ==

== ENCOUNTER 2025-03-15 07:27 | Day surgery (SDC) | payer MEDICARE, OTHER, SELFPAY ==
--- OUTSIDE RECORDS SUMMARY | 2025-03-15 07:30 | XMS_ITS | Encounter Summary ---
Author Organization [facility] Address [address] [place] [address] Care Team Providers Care Buggy Runner Name Role Phone Daja Pugh DO Primary Care Provi reese Source Comments In the event this information is protected by the Federal Confidentiality of Alcohol and Drug AbusePatient Records regulations: The Federal rules restrict any use of the information to criminally investigate or prosecute any alcohol or drug abuse patient.[facility] Encounter Details Date Type Department Care Team (Late st Contact Info) Description 05/29/2022 Patient Msg Ophthalmology [address] [place], [place] [id number] Provider, [facility] Surgery with Dr. Batista Social [...] and agreeable to Sx date 6-2-23 in [place]. Pt also requested to be put on [...] message for patient to return call to [phone] or to reply back to the [email or web address] message sent to schedule surgery. Good afternoon , Please see the approved case below: Patient Name: PORSHA GRACE DOS: 06/23/2022 Insurance: [facility] Approved or Denied: Approved CPT code(s) are approved or denied: [id number] (DEBORAH) Number of Approved days/valid dates: 06/23/2021 [...] with small sip of water Will need test car driver if having sedation surgery For surgery at [place] or [place], call . documented in this encounter Plan of Treatment Not on file documented as of this encounter Visit Diagnoses Not on filedocumented in this encounter Care Teams Buggy Runner Relationship Specialty Start Date End Date Daja Pugh DO [address] [place] [address] PCP - General Internal Medicine 07/26/22 documented as of this encounter
--- OUTSIDE RECORDS SUMMARY | 2025-03-15 07:30 | XMS_ITS | Encounter Summary ---
Author Organization [facility] Address [address] [facility] [place] [address] Care Team Providers Care Q[employer] Software Test Engineer Name Role Phone Daja Phipps DO Primary Care Provider Jana Plummer MD Unavailable [phone] Charly Garcia MD Unavailable [phone] Raheem Roland MD Unavailable [phone] Encounter Details Date Type Department Care Team (Late st Contact Info) Description 11/04/2022 Orders Only [facility] [address] [place] [address] Daja Phipps, DO [address] [place] [address] Social History Tobacco Use Types [...] Care Team (Late st Contact Info) Description 04/01/2025 10:30 AM EDT Office Visit [facility] [address] [place] [address] Zenia Bautista MD [address] [place] [address] 06/14/2025 8:45 AM EST Office Visit [facility] [place] [facility] [address] [place] [id number] Daja Phipps DO [address] [place] [address] 02/23/2026 10:20 AM EDT Office Visit [facility] [address] [place] [address] Jana Plummer MD [address] [place] [address] documented as of this encounter Visit Diagnoses Not on filedocumented in this encounter Care Teams Qa Software Test Engineer Relationship Specialty Start Date End Date Daja Phipps DO [address] [place] [address] PCP - General Internal Medicine 11/04/22 Jana Plummer MD [address] [place] [address] Referring Physician Dermatology 01/16/24 Charly Garcia MD [address] [place] [address] Consulting Physician Cardiology 02/20/25 Raheem Roland MD [address] [place] [address] Consulting Physician Urology 02/20/25 documented as of this encounter
--- OUTSIDE RECORDS SUMMARY | 2025-03-15 07:30 | XMS_ITS | Clinical Summary ---
Author Organization [facility] Address [address] [place] [address] Phone Care Team Providers Care Cornice Upholsterer Name Role Phone Daja Phipps Primary [facility] Provi reese Raheem Roland MD Unavailable [phone] Isatu Garza MD Unavailable [phone] Allergies Active Allergy Reactions Criticality Noted Date Comments Aluminum Hives,Swelling,Rash,Other Low 02/06/2021 Medications celecoxib (CeleBREX) 200 mg capsule Take 1 capsule (200 mg) by mouth 2 times a day. 05/06/20 24 Active fexofenadine (Joan) 180 mg tablet Take 1 tablet (180 mg) by mouth early in the morning.. 09/08/19 25 Active glyBURIDE (Diabeta) 5 mg tablet Take 1 tablet (5 mg) by mouth 2 times a day. 11/16/19 25 Active metFORMIN XR 500 mg 24 hr tablet Take 2 tablets (1,000 mg) by mouth 2 times daily (morning and late afternoon). 09/18/19 25 026 Active omeprazole OTC (PriLOSEC OTC) 20 mg EC tablet Take 1 tablet (20 mg) by mouth once daily in the morning. Take before meals. Active potassium citrate CR (Urocit-K-15) 15 mEq ER tablet Take 2 tablets (30 mEq) by mouth 2 times daily (morning and late afternoon). 05/21/20 23 01/02/2 026 Active semaglutide 2 mg/dose (8 mg/3 mL) pen injector Inject under the skin 1 (one) time per week. 09/18/19 25 Active rosuvastatin (Crestor) 5 mg tabletIndications:Mi xed hyperlipidemia Take 1 tablet (5 mg) by mouth once daily. 90 tablet 3 12/17/19 026 Active multivitamin tablet Take 1 tablet by mouth once daily. Active clopidogrel (Plavix) 75 mg tabletIndications:Ab normal electrocardiogram (ECG) (EKG),Atherosclerosi s of aorta,Cardiovascular stress test abnormal,Myocardial infarct, old,Encounter for pre-operative cardiovascular clearance,Type 2 diabetes mellitus without complication, without long-term current use of insulin (Multi),Gastroesopha geal reflux disease without esophagitis,Mixed hyperlipidemia,Abnor mal result of other cardiovascular function study,Cardiomyopathy , unspecified type (Multi) Take 1 tablet (75 mg) by mouth once daily. 90 tablet 1 5 4:05 PM EDT 01/08/20 25 026 Active nitroglycerin (Nitrostat) 0.4 mg SL tabletIndications:Ab normal electrocardiogram (ECG) (EKG),Atherosclerosi s of aorta,Cardiovascular stress test abnormal,Myocardial infarct, old,Encounter for pre-operative cardiovascular clearance,Type 2 diabetes mellitus without complication, without long-term current use of insulin (Multi),Gastroesopha geal reflux disease without esophagitis,Mixed hyperlipidemia,Abnor mal result of other cardiovascular function study,Cardiomyopathy , unspecified type (Multi) Place 1 tablet (0.4 mg) under the tongue every 5 minutes if needed for chest pain. May repeat dose every 5 minutes for up to 3 doses total. 25 tablet 5 5 4:05 PM EDT 01/08/20 25 026 Active isosorbide mononitrate ER (Imdur) 60 mg 24 hr tabletIndications:Ab normal electrocardiogram (ECG) (EKG),Atherosclerosi s of aorta,Cardiovascular stress test abnormal,Myocardial infarct, old,Encounter for pre-operative cardiovascular clearance,Type 2 diabetes mellitus without complication, without long-term current use of insulin (Multi),Gastroesopha geal reflux disease without esophagitis,Mixed hyperlipidemia,Abnor mal result of other cardiovascular function study,Cardiomyopathy , unspecified type (Multi) Take 1 tablet by mouth daily 90 tablet 3 02/16/20 25 Active ranolazine (Ranexa) 500 mg 12 hr tabletIndications:Ab normal electrocardiogram (ECG) (EKG),Atherosclerosi s of aorta Take 1 tablet (500 mg) by mouth 2 times a day. Do not crush, chew, or split. 180 tablet 3 02/16/20 25 026 Active aspirin 81 mg EC tablet Take 1 tablet (81 mg) by mouth once daily. Active metoprolol succinate XL (Toprol-XL) 50 mg 24 hr tabletIndications:En counter for pre-operative cardiovascular clearance,Atheroscle rosis of aorta,Abnormal result of other cardiovascular function study,Myocardial infarct, old,Type 2 diabetes mellitus without complication, without long-term current use of insulin (Multi),Mixed hyperlipidemia,Abnor mal electrocardiogram (ECG) (EKG),Cardiovascular stress test abnormal,Gastroesoph ageal reflux disease without esophagitis,Cardiomy opathy, unspecified type (Multi) Take 1 tablet (50 mg) by mouth once daily. 90 tablet 1 5 2:30 PM EDT 02/19/20 25 026 Active metoprolol succinate XL (Toprol-XL) 25 mg 24 hr tabletIndications:Ab normal electrocardiogram (ECG) (EKG),Atherosclerosi s of aorta,Cardiovascular stress test abnormal,Myocardial infarct, old,Encounter for pre-operative cardiovascular clearance,Type 2 diabetes mellitus without complication, without long-term current use of insulin (Multi),Gastroesopha geal reflux disease without esophagitis,Mixed hyperlipidemia,Abnor mal result of other cardiovascular function study,Cardiomyopathy , unspecified type (Multi) Take 1 tablet (25 mg) by mouth once daily. Do not crush or chew. 90 tablet 1 5 4:05 PM EDT 01/08/20 25 025 Discontin ued(Reord er) isosorbide mononitrate ER (Imdur) 30 mg 24 hr tabletIndications:Ab normal electrocardiogram (ECG) (EKG),Atherosclerosi s of aorta,Cardiovascular stress test abnormal,Myocardial infarct, old,Encounter for pre-operative cardiovascular clearance,Type 2 diabetes mellitus without complication, without long-term current use of insulin (Multi),Gastroesopha geal reflux disease without esophagitis,Mixed hyperlipidemia,Abnor mal result of other cardiovascular function study,Cardiomyopathy , unspecified type (Multi) TAKE 1/2 TABLET DAILY FOR 7 DAYS, THEN ONE TABLET DAILY THEREAFTER 90 tablet 1 4:05 PM EDT 01/08/20 025 Discontin ued(Reord er) Active Problems Problem Noted Date Diagnosed Date Coronary artery disease invo lving [place] coronary artery of [place] heart without angina pectoris 02/18/2025 Cardiovascular stress test abnormal 01/07/2025 Myocardial infarct, old 01/07/2025 Cardiomyopathy (Multi) 01/07/2025 Encounter for pre-operative cardiovascular clear ance 12/16/2024 Abnormal electrocardiogram (ECG) (EKG) BMI 29.0-29.9,adult 12/16/2024 Never smoked tobacco 12/16/2024 BPH without urinary obstruction 12/16/2024 Gastroesophageal reflux disease without esophagi tis 12/16/2024 Other specified glaucoma 12/16/2024 Atherosclerosis of aorta 12/16/2024 Mixed hyperlipidemia 12/16/2024 Type 2 diabetes mellitus wit hout complication, without long-term current use of insulin (Multi) 07/26/2022 Calculus of kidney 06/20/2021 Encounters Date Type Department Care Team Description 02/21/[address] [facility] [address] [facility] [address] [place] [address] Jeanie Proctor RN Pre-op Clearance 02/18/2025 9:00 AM EDT Office Visit [facility] Medical Office Building [address] [place] [address] [address] [place] [address] Isatu Garza MD Coronary artery disease involving [place] coronary artery of [place] heart without angina pectoris (Primary Dx); Encounter for pre-operative cardiovascular clearance; Ischemic cardiomyopathy; Atherosclerosis of aorta; Abnormal result of other cardiovascular function study; Myocardial infarct, old; Type 2 diabetes mellitus without complication, without long-term current use of insulin (Multi); Mixed hyperlipidemia; Abnormal electrocardiogram (ECG) (EKG); Cardiovascular stress test abnormal; Gastroesophageal reflux disease without esophagitis; Cardiomyopathy, unspecified type (Multi) Discharge Disposition: Home 02/18/2025 Travel 02/16/2025 Travel 02/14/2025 Documentation [facility] Medical Office Building [address] [facility] [place] [facility] [address] [place] [address] Isatu Garza MD 02/14/[address] [phone] Olinda Edwards RN Abnormal electrocardiogram (ECG) (EKG); Atherosclerosis of aorta; Cardiovascular stress test abnormal; Myocardial infarct, old; Encounter for pre-operative cardiovascular clearance; Type 2 diabetes mellitus without complication, without long-term current use of insulin (Multi); Gastroesophageal reflux disease without esophagitis; Mixed hyperlipidemia; Abnormal result of other cardiovascular function study; Cardiomyopathy, unspecified type (Multi) 02/08/2025 Scanned Document [facility] [address] [place] [address] Scanning, Generic Provider 02/04/2025 Scanned Document [facility] [address] [place] [address] Scanning, Generic Provider 02/04/2025 Orders Only [facility] [address] [place] [address] Leonard Morgan DO 01/07/2025 9:15 AM EDT Office Visit [facility] Medical Office Building [address] [facility] [place] [facility] [address] [place] [address] Isatu Garza MD Encounter for pre-operative cardiovascular clearance (Primary Dx); Abnormal electrocardiogram (ECG) (EKG); Atherosclerosis of aorta; Cardiovascular stress test abnormal; Myocardial infarct, old; Type 2 diabetes mellitus without complication, without long-term current use of insulin (Multi); Gastroesophageal reflux disease without esophagitis; Mixed hyperlipidemia; Abnormal result of other cardiovascular function study; Cardiomyopathy, unspecified type (Multi) 01/07/2025 Telephone [facility] [address] [facility] [address] [place] [address] Isatu Garza MD 01/07/[address] [address] Rosalba Monet MA 01/07/2025 Travel 01/05/2025 9:46 AM EDT - 01/05/2025 11:59 PM EDT Hospital Encounter [address] [address] Abnormal electrocardiogram (ECG) (EKG); Type 2 diabetes mellitus without complication, without long-term current use of insulin (Multi); Mixed hyperlipidemia; Atherosclerosis of aorta; Pitting edema Discharge Disposition: Home 01/05/2025 9:45 AM EDT Hospital Encounter [facility] [address] [place] [phone] Discharge Disposition: Home 01/05/2025 9:44 AM EDT Hospital Encounter [facility] [place] [facility] [address] [place] [phone] Discharge Disposition: Home 01/05/2025 9:30 AM EDT - 01/05/2025 9:43 AM EDT Hospital Encounter [address] [phone] Discharge Disposition: Home 01/05/2025 9:00 AM EDT - 01/05/2025 9:29 AM EDT Hospital Encounter [facility] [place] [facility] [address] [place] [phone] Discharge Disposition: Home 01/05/2025 8:30 AM EDT - 01/05/2025 8:59 AM EDT Hospital Encounter [facility] [place] [facility] [address] [place] [phone] Encounter for pre-operative cardiovascular clearance; Abnormal electrocardiogram (ECG) (EKG); Type 2 diabetes mellitus without complication, without long-term current use of insulin (Multi); Mixed hyperlipidemia; Atherosclerosis of aorta; Pitting edema Discharge Disposition: Home 01/05/2025 Travel 12/27/2024 Orders Only [facility] [address] [place] [address] Isatu Garza MD 12/20/[address] [phone] Olinda Edwards RN Error (VOID this visit) 12/20/[address] [phone] Olinda Edwards RN 12/16/2024 10:15 AM EDT Office Visit [address] [phone] Isatu Garza MD Encounter for pre-operative cardiovascular clearance; Abnormal electrocardiogram (ECG) (EKG); Type 2 diabetes mellitus without complication, without long-term current use of insulin (Multi); Mixed hyperlipidemia; BPH without urinary obstruction; Calculus of kidney; Gastroesophageal reflux disease without esophagitis; Other specified glaucoma, unspecified laterality; Atherosclerosis of aorta; BMI 29.0-29.9,adult; Never smoked tobacco; Pitting edema; Hx pulmonary embolism 12/16/2024 Travel from Last 3 Months Family History Medical History Relation Name Comments Cancer Mother Diabetes Mother Relation Name Status Comments Mother Social History Tobacco Use Types Packs/Day Years Used Date Smoking Tobacco: Never Smokeless Tobacco: Never Alcohol Use Standard Drinks/Week Comments Yes 0 (1 standard drink = 0.6 oz pur e alcohol) rarely Sex and Gender Information Value Date Recorded Sex Assigned at Not on file Legal Sex Male 1:48 PM EDT Gender Identity Male 02/02/2025 2:28 PM EDT Sexual Orientation Not on file Last Filed Vital Signs Vital Sign Reading Time Taken Comments Blood Pressure 134/76 02/18/2025 9:11 AM EDT Pulse 98 02/18/2025 9:11 AM EDT Temperature - - Respiratory Rate - - Oxygen Saturation - - Inhaled Oxygen Concentration - - Weight 91.4 kg (201 lb 6.4 oz) 02/18/2025 9:11 A M EDT Height 180.3 cm (5' 11 ) 02/18/2025 9:11 AM EDT Body Mass Index 28.09 02/18/2025 9:11 AM EDT Plan of Treatment Upcoming Encounters Date Type Department Care Team (Late st Contact Info) Description 04/22/2025 10:15 AM EST Office Visit [facility] Medical Office Building [address] [facility] [address] [place] [phone] Isatu Garza MD [address] [facility] [address] [place] [address] Health Maintenance Due Date Last Done Comments CT Colonography 1957 FIT-DNA (Cologuard) 1957 FIT 1957 Medicare Annual Wellness Visit (AWV) 1957 Sigmoidoscopy 1957 MMR Vaccines (1 of 1 - Standard series) 1958 Diabetes: Retinopathy Screening 1967 Hepatitis C Screening 1975 PSA Prostate Cancer Screening 2007 Diabetes: Hemoglobin A1C 04/13/2025 01/11/2025 Diabetes: Urine Protein Screening 05/17/2025 05/17/2024 Lipid Panel 01/11/2026 01/11/2025 Colonoscopy 08/09/2027 08/08/2017 Colorectal Cancer Screening 08/09/2027 DTaP/Tdap/Td Vaccines (2 - Td or Tdap) 02/15/2034 02/16/2024 Pneumococcal Vaccine Completed 12/13/2022, 08/10/19 23 RSV High Risk: (Elderly (60+) or Population) Completed 04/19/2023 Zoster Vaccines Completed 04/19/2023, 12/13/2022 COVID-19 Vaccine Completed 02/10/2025, , 03/01/2023, Additional history exists Influenza Vaccine Completed 02/10/2025, , 03/01/2023, Additional history exists HIB Vaccines Aged Out No longer eligi ble based on patient's age to complete this topic HPV Vaccines Aged Out No longer eligi ble based on patient's age to complete this topic Hepatitis A Vaccines Aged Out No long er eligible based on patient's age to complete this topic Hepatitis B Vaccines Aged Out No long er eligible based on patient's age to complete this topic IPV Vaccines Aged Out No longer eligi ble based on patient's age to complete this topic Meningococcal Vaccine Aged Out No yarely korin eligible based on patient's age to complete this topic Rotavirus Vaccines Aged Out No longer eligible based on patient's age to complete this topic Procedures Procedure Name Priority Date/Time Associated Diagnosis Comments [facility] LIPID PANEL Routine 10:18 AM EDT [facility] CREATININE Routine 02/04/2025 10:18 AM EDT [facility] BLOOD UREA NITROGEN Routine 02/04/2025 10:18 AM EDT [facility] ELECTROLYTES Routine 02/05/20 25 10:18 AM EDT [facility] COAGULATION PROFILE Routine 02/04/2025 10:18 AM EDT [facility] COMPLETE BLOOD COUNT AUTO DIFF Routine 02/04/2025 10:18 AM EDT ELECTROCARDIOGRAM 12 LEAD 02/04/2025 9:51 AM EDT HEPATIC FUNCTION PANEL Routine 9:01 AM EDT Abnormal electrocardiogram (ECG) (EKG) Atherosclerosis of aorta Cardiovascular stress test abnormal Myocardial infarct, old Encounter for pre-operative cardiovascular clearance Type 2 diabetes mellitus without complication, without long-term current use of insulin (Multi) Gastroesophageal reflux disease without esophagitis Mixed hyperlipidemia Abnormal result of other cardiovascular function study Cardiomyopathy, unspecified type (Multi) HEMOGLOBIN A1C Routine 01/11/2025 9:00 AM EDT Abnormal electrocardiogram (ECG) (EKG) Atherosclerosis of aorta Cardiovascular stress test abnormal Myocardial infarct, old Encounter for pre-operative cardiovascular clearance Type 2 diabetes mellitus without complication, without long-term current use of insulin (Multi) Gastroesophageal reflux disease without esophagitis Mixed hyperlipidemia Abnormal result of other cardiovascular function study Cardiomyopathy, unspecified type (Multi) MAGNESIUM Routine 01/11/2025 9:00 AM EDT Abnormal electrocardiogram (ECG) (EKG) Atherosclerosis of aorta Cardiovascular stress test abnormal Myocardial infarct, old Encounter for pre-operative cardiovascular clearance Type 2 diabetes mellitus without complication, without long-term current use of insulin (Multi) Gastroesophageal reflux disease without esophagitis Mixed hyperlipidemia Abnormal result of other cardiovascular function study Cardiomyopathy, unspecified type (Multi) BASIC METABOLIC PANEL Routine 01/11/2025 9:00 AM EDT Abnormal electrocardiogram (ECG) (EKG) Atherosclerosis of aorta Cardiovascular stress test abnormal Myocardial infarct, old Encounter for pre-operative cardiovascular clearance Type 2 diabetes mellitus without complication, without long-term current use of insulin (Multi) Gastroesophageal reflux disease without esophagitis Mixed hyperlipidemia Abnormal result of other cardiovascular function study Cardiomyopathy, unspecified type (Multi) CBC Routine 01/11/2025 9:00 AM EDT Abnormal electrocardiogram (ECG) (EKG) Atherosclerosis of aorta Cardiovascular stress test abnormal Myocardial infarct, old Encounter for pre-operative cardiovascular clearance Type 2 diabetes mellitus without complication, without long-term current use of insulin (Multi) Gastroesophageal reflux disease without esophagitis Mixed hyperlipidemia Abnormal result of other cardiovascular function study Cardiomyopathy, unspecified type (Multi) LIPID PANEL Routine 01/11/2025 9:00 AM EDT Abnormal electrocardiogram (ECG) (EKG) Atherosclerosis of aorta Cardiovascular stress test abnormal Myocardial infarct, old Encounter for pre-operative cardiovascular clearance Type 2 diabetes mellitus without complication, without long-term current use of insulin (Multi) Gastroesophageal reflux disease without esophagitis Mixed hyperlipidemia Abnormal result of other cardiovascular function study Cardiomyopathy, unspecified type (Multi) STRESS TEST, REGADENOSON W MYOCARDIAL PERFUSION SPECT (MULTI STUDY) Routine 01/05/2025 12:29 PM EDT Encounter for pre-operative cardiovascular clearance Abnormal electrocardiogram (ECG) (EKG) Type 2 diabetes mellitus without complication, without long-term current use of insulin (Multi) Mixed hyperlipidemia Atherosclerosis of aorta Pitting edema TRANSTHORACIC ECHO (TTE) COMPLETE Routine 01/05/2025 12:10 PM EDT Abnormal electrocardiogram (ECG) (EKG) Type 2 diabetes mellitus without complication, without long-term current use of insulin (Multi) Mixed hyperlipidemia Atherosclerosis of aorta Pitting edema VASC US LOWER EXTREMITY VENOUS DUPLEX BILATERAL 12/27/2024 8:03 AM EDT ECG 12-LEAD Routine 12/16/2024 1:13 PM EDT Encounter for pre-operative cardiovascular clearance from Last 3 Months Results * (ABNORMAL) [facility] Complete Blood Count Auto Diff (02/04/2025 10:18 AM EDT) [facility] White Blood Count 5.7 4.1 - 10.5 [CFU]/mL [facility] Uncorrected WBC 5.7 4.1 - 10.5 10*3/uL [facility] Red Blood Count 3.71(L) 3.90 - 5.60 10*6/uL [facility] Hemoglobin 12.4(L) 13.0 - 17.0 g/dL [facility] Hematocrit 34.5(L) 38.8 - 50.0 % [facility] Mean Corpuscular Volume 93.0 83.5 - 101 fL [facility] Mean Corpuscular Hemoglobin 33.3 27.5 - 35.2 pg [facility] Mean Corpuscular HGB Conc 35.8(H) 32.5 - 35.6 g/dL [facility] Red Cell Distribution Width 14.9(H) 12.0 - 14.8 % [facility] Platelet Count 210 150 - 450 10*3/uL [facility] Mean Platelet Volume 7.9 6.6 - 10.1 fL [facility] Neutrophils % (Auto) 79.6 . % [facility] Lymphocytes % (Auto) 11.3 . % [facility] Monocytes % (Auto) 6.5 . % [facility] Eosinophils % (Auto) 1.8 . % [facility] Basophils % (Auto) 0.8 . % [facility] NRBC% 0.1 0 - 0.5 /100{WBC} [facility] Neutrophils # (Auto) 4.5 1.8 - 7.7 10*3/uL [facility] Lymphocytes # (Auto) 0.6(L) 1.00 - 4.8 10*3/uL [facility] Monocytes # (Auto) 0.4 0.0 - 0.8 10*3/uL [facility] Eosinophils # (Auto) 0.1 0.0 - 0.45 10*3/uL [facility] Basophils # (Auto) 0.0 0.0 - 0.2 10*3/uL [facility] Comment:PERFORMED BY:[facility] [place], [place] [address]VelmaHossein[place]ISHA, [place] [phone] MEDICAL DIRECTORLAYTON SCOTT [place]. [facility] [place] blood specimen 02/04/2025 10:18 AM EDT Leonard Morgan DO LAB BLOOD ORDERABLES Final Result [facility] [address] [place] [address], [facility] [address] [place] [address] * [facility] Blood Urea Nitrogen (02/04/2025 10:18 AM EDT) [facility] Blood Urea Nitrogen 20 7 - 25 mg/dL [facility] [place] Plasma specimen or serum specimen or whole blood specimen 02/04/2025 10:18 AM EDT Leonard Morgan DO LAB BLOOD ORDERABLES Final Result [facility] [address] [place] [address], [facility] [address] [place] [address] * (ABNORMAL) [facility] Lipid Panel (02/04/2025 10:18 AM EDT) [facility] Cholesterol 95(L) 140 - 200 mg/dL [facility] Comment:Chol less than 200 m g/dl low risk Chol 201-239 mg/dl borderline risk Chol 240 mg/dl and greater high risk [facility] HDL Cholesterol 32 23 - 92 mg/dL [facility] Comment:HDL CHOL ATP-III CLA SSIFICATION Cardiovascular Risk HDL > or equal to 60 mg/dL LOW HDL < 40 mg/dL HIGH [facility] Triglyceride w/Reflex 122 0 - 149 mg/dL [facility] Comment:TRIG ATP III CLASSIF ICATION TRIG less than 150 mg/dL Normal TRIG 150-199 mg/dL Borderline high TRIG 200-500 mg/dL High TRIG greater than 500 mg/dL Very high Standard traceable to the Center for Disease Conrtrol and Prevention (CDC) test method. [facility] LDL Cholesterol,Calcula chitra 39 0 - 100 mg/dL [facility] Comment:LDL ATP III CLASSIFI CATION LDL less than 100 mg/dL Optimal LDL 100-129 mg/dL Near or above optimal LDL 130-159 mg/dL Borderline high LDL 160-189 mg/dL High LDL greater than 189 mg/dL Very high [facility] VLDL CHOLESTEROL 24 mg/dL [facility] Chol/HDL Ratio 3.0 <5.0 [facility] Comment:PERFORMED BY:[facility] [facility] SYSTEMHosseinMATHER, [place] [id number] MEDICAL DIRECTORLAYTON SCOTT M.D. [facility] [place] Plasma specimen or serum specimen or whole blood specimen 02/04/2025 10:18 AM EDT us Leonard Morgan DO LAB BLOOD ORDERABLES Final Result [facility] [address] [place] [address], [facility] [address] [place] [address] * [facility] Electrolytes (02/04/2025 10:18 AM EDT) [facility] Sodium 138 136 - 145 mmol/L [facility] Potassium 4.8 3.5 - 5.1 mmol/L [facility] Chloride 104 98 - 107 mmol/L [facility] Carbon Dioxide 29.0 21.0 - 31.0 mmol/L [facility] Anion Gap 9.8 6.0 - 15.0 [facility] [place] Plasma specimen or serum specimen or whole blood specimen 02/04/2025 10:18 AM EDT [facility] LAB BLOOD [place] [address], [facility] [address] [place] [address] * [facility] Creatinine (02/04/2025 10:18 AM EDT) [facility] Creatinine 1.21 0.70 - 1.30 mg/dL [facility] ESTIMATED GFR >60.0 [facility] [place] Plasma specimen or serum specimen or whole blood specimen 02/04/2025 10:18 AM EDT [facility] LAB BLOOD ORDERABLES Final Result Performing Organization Address City/[facility]/ZIP Co de Phone Number [facility] [address] [id number], [facility] [address] [id number] * NON-[facility] HIE Coagulation Profile (02/04/2025 10:18 AM EDT) NON-[facility] HIE Prothrombin Time 11.0 9.0 - 12.9 s [facility] Comment:A hematocrit value g reater than 55% may lead to inaccurate results in coagulation testing. Patients having hematocrit values >55% require a special collection tube for coagulation studies. Please contact the laboratory at [phone] for redraw instructions. NON-[facility] HIE INR 1.0 [facility] Comment:INR Therapeutic Rang e A) Pre- and Peroperative OAT started two weeks before surgery. NOT HIP SURGERY: 1.5 - 2.5 HIP SURGERY: 2 - 3 B) Primary and secondary prevention of venous THROMBOSIS: 2 - 3 C) Active venous thrombosis, pulmonary embolism and prevention of recurrent venous thrombosis: 2 - 3 D) Prevention of arterial thromboembolism including patients with mechanical heart valves: 3 - 4.5 NON-[facility] HIE Partial Thromboplastin Time 27.3 25.1 - 36.5 s [facility] Comment:A hematocrit value g reater than 55% may lead to inaccurate results in coagulation testing. Patients having hematocrit values >55% require a special collection tube for coagulation studies. Please contact the laboratory at [phone] for redraw instructions.PERFORMED BY:[address] [id number] MEDICAL DIRECTORLAYTON SCOTT M.D. [facility] [place] Platelet poor plasma specimen 02/04/2025 10:18 AM EDT Leonard Morgan DO LAB BLOOD ORDERABLES Final Result [address] [address], [address] [address] * Electrocardiogram (02/04/2025 9:51 AM EDT) 02/04/2025 9:51 AM EDT Narrative [facility] - 02/04/2025 5:42 PM EDT [facility] Main [place] [address] [place], [place] [id number] Electrocardiograph Report Signed Patient: Porsha Grace MR#: [id number] : 1955 Acct:[id number] Age/Sex: 69 / M ADM Date: 02/04/25 Loc: Room: Type: [facility] Attending Dr: Lukasz Morgan DO Ordering Provider: Lukasz Morgan DO Date of Service: 02/04/2510/24/944 ECG/ECG 12 lead ECG: pre [facility] Copies to: Test Reason : Blood Pressure : */* mmHG Vent. Rate : 84 BPM Atrial Rate : 84 BPM P-R Int : 132 ms QRS Dur : 82 ms QT Int : 360 ms P-R-T Axes : 34 11 49 degrees QTcB Int : 425 ms Normal sinus rhythm Inferior infarct , age undetermined Abnormal ECG When compared with ECG of 10-May-2024 11:27, premature ventricular complexes are no longer present Inferior infarct is now present Nonspecific T wave abnormality now evident in Anterior leads Confirmed by Oniel Langley ([id number]) on 02/04/2025 5:42:27 PM Referred By: Electronically Signed By: Oniel Langley Transcribed By: MUS Signed By Oniel Langley MD 02/04/25 0178 us Leonard Morgan DO ECG ORDERABLES Final Resul t [facility] [address] [place] [address], [place] * (ABNORMAL) Hepatic Function Panel (01/11/2025 9:01 AM EDT) PROTEIN, TOTAL 5.9(L) 6.1 - 8.1 g/dL [facility] ALBUMIN 4.2 3.6 - 5.1 g/dL [facility] GLOBULIN 1.7(L) 1.9 - 3.7 g/dL (calc) [facility] ALBUMIN/GLOBULIN RATIO 2.5 1.0 - 2.5 (calc) [facility] BILIRUBIN, TOTAL 0.9 0.2 - 1.2 mg/dL [facility] [place] BILIRUBIN, DIRECT 0.2 < OR = 0.2 mg/dL [facility] [place] BILIRUBIN, INDIRECT 0.7 0.2 - 1.2 mg/dL (calc) [facility] ALKALINE PHOSPHATASE 69 35 - 144 U/L [facility] [place] AST 14 10 - 35 U/L [facility] ALT 17 9 - 46 U/L [facility] Blood Venous blood specimen / Unknown 01/11/2025 9:01 AM EDT 01/11/2025 9:01 AM EDT Isatu Garza MD LAB BLOOD ORDERABLES Lilly l Result [facility] [address] , [address] [place] [address] * (ABNORMAL) CBC (01/11/2025 9:00 AM EDT) Pathologist [facility] WHITE BLOOD CELL COUNT 5.8 3.8 - 10.8 Thousand/ uL [facility] RED BLOOD CELL COUNT 4.06(L) 4.20 - 5.80 Million/u L [facility] HEMOGLOBIN 13.2 13.2 - 17.1 g/dL [facility] HEMATOCRIT 39.7 38.5 - 50.0 % [facility] MCV 97.8 80.0 - 100.0 fL [facility] MCH 32.5 27.0 - 33.0 pg [facility] MCHC 33.2 32.0 - 36.0 g/dL [facility] Comment: For adults, a slight decrease in the calculated MCHC value (in the range of 30 to 32 g/dL) is most likely not clinically significant; however, it should be interpreted with caution in correlation with other red cell parameters and the patient's clinical condition. RDW 13.3 11.0 - 15.0 % [facility] PLATELET COUNT 183 140 - 400 Thousand/ uL [facility] MPV 10.2 7.5 - 12.5 fL [facility] Blood Venous blood specimen / Unknown 01/11/2025 9:00 AM EDT 01/11/2025 9:00 AM EDT Narrative [facility] - 01/12/2025 1:07 AM EDT FASTING:YES FASTING: YES Isatu Garza MD LAB BLOOD ORDERABLES Lilly carr Result [facility] [address] [place] [address], [address] [place] [address] * Magnesium (01/11/2025 9:00 AM EDT) [facility] MAGNESIUM 2.0 1.5 - 2.5 mg/dL [facility] Blood Venous blood specimen / Unknown 01/11/2025 9:00 AM EDT 01/11/2025 9:[address] [facility] - 01/12/2025 1:07 AM EDT FASTING:YES FASTING: YES us Isatu Garza MD LAB BLOOD ORDERABLES Lilly l Result Performing Organization Address City/State/[facility] Co de Phone Number [address], [address] [place] [address] * (ABNORMAL) Hemoglobin A1C (01/11/2025 9:00 AM EDT) [facility] HEMOGLOBIN A1c 6.9(H) <5.7 % [facility] Comment: For someone without known diabetes, a hemoglobin A1c value of 6.5% or greater indicates that they may have diabetes and this should be confirmed with a follow-up test. For someone with known diabetes, a value <7% indicates that their diabetes is well controlled and a value greater than or equal to 7% indicates suboptimal control. A1c targets should be individualized based on duration of diabetes, age, comorbid conditions, and other considerations. Currently, no consensus exists regarding use of hemoglobin A1c for diagnosis of diabetes for children. eAG (mg/dL) 151 mg/dL [facility] eAG (mmol/L) 8.4 mmol/L [facility] Blood Venous blood specimen / Unknown 01/11/2025 9:00 AM EDT 01/11/2025 9:00 AM EDT [facility] - 01/12/2025 1:07 AM EDT FASTING:YES FASTING: YES us Isatu Garza MD LAB BLOOD ORDERABLES Lilly l Result [facility] [address] [facility], [address] [place] [address] * Lipid Panel (01/11/2025 9:00 AM EDT) [facility] CHOLESTEROL, TOTAL 93 <200 mg/dL [facility] HDL CHOLESTEROL 42 > OR = 40 mg/dL [facility] TRIGLYCERIDES 71 <150 mg/dL [facility] LDL-CHOLESTEROL 36 mg/dL (calc) [facility] Comment: Reference range: <100 Desirable range <100 mg/dL for primary prevention; <70 mg/dL for patients with CHD or diabetic patients with > or = 2 CHD risk factors. LDL-C is now calculated using the Brodie calculation, which is a validated novel method providing better accuracy than the Friedewald equation in the estimation of LDL-C. Ruben SS et al. SILVERIO. 2013;310(19): 8490-5297 (http://education.Diag[employer]./faq/QFK097) CHOL/HDLC RATIO 2.2 <5.0 (calc) [facility] NON HDL CHOLESTEROL 51 <130 mg/dL (calc) [facility] Comment: For patients with diabetes plus 1 major ASCVD risk factor, treating to a non-HDL-C goal of <100 mg/dL (LDL-C of <70 mg/dL) is considered a therapeutic option. Blood Venous blood specimen / Unknown 01/11/2025 9:00 AM EDT 01/11/2025 9:[address] [facility] - 01/12/2025 1:07 AM EDT FASTING:YES FASTING: YES Isatu Garza MD LAB BLOOD ORDERABLES Lilly carr Result Performing Organization Address City/[facility]/ZIP Co de Phone Number [facility] [address] [facility], [address] [place] [address] * (ABNORMAL) Basic Metabolic Panel (01/11/2025 9:00 AM EDT) [facility] GLUCOSE 104(H) 65 - 99 mg/dL [facility] Comment: Fasting reference interval For someone without known diabetes, a glucose value between 100 and 125 mg/dL is consistent with prediabetes and should be confirmed with a follow-up test. UREA NITROGEN (BUN) 21 7 - 25 mg/dL [facility] CREATININE 1.48(H) 0.70 - 1.35 mg/dL [facility] EGFR 52(L) > OR = 60 mL/min/1. 73m2 [facility] BUN/CREATININE RATIO 14 6 - 22 (calc) [facility] SODIUM 139 135 - 146 mmol/L [facility] POTASSIUM 4.6 3.5 - 5.3 mmol/L [facility] CHLORIDE 104 98 - 110 mmol/L [facility] CARBON DIOXIDE 27 20 - 32 mmol/L [facility] ELECTROLYTE BALANCE 8 7 - 17 mmol/L (calc) [facility] CALCIUM 9.2 8.6 - 10.3 mg/dL [facility] Blood Venous blood specimen / Unknown 01/11/2025 9:00 AM EDT 01/11/2025 9:[address] [facility] - 01/12/2025 1:07 AM EDT FASTING:YES FASTING: YES us Isatu Garza MD LAB BLOOD ORDERABLES Lilly l Result [facility] [address] [facility], [address] [place] [phone] * STRESS TEST, REGADENOSON W MYOCARDIAL PERFUSION SPECT (MULTI STUDY) (01/05/2025 12:29 PM EDT) Anatomical Region Laterality Modality Nuclear Medicine 01/07/2025 8:09 AM EDT 01/07/2025 8:09 AM EDT Impressions 01/07/2025 8:07 AM EDT Abnormal Lexiscan Myoview cardiac perfusion stress test. Large area of severe inferoapical myocardial infarction with mild aleksandar-infarction ischemia by perfusion imaging. Abnormal left ventricular systolic function with large inferior apical akinesia, ejection fraction 36%. Abnormal resting electrocardiogram suggesting inferior DE. No comparison studies available. Clinical correlation is advised.. Signed by: Isatu Garza 01/07/2025 8:07 AM Dictation workstation: [id number] Narrative 01/07/2025 8:07 AM EDT Interpreted By: Isatu Garza and John Gaffney STUDY: MYOCARDIAL PERFUSION STRESS TEST WITH LEXISCAN Performing facility: [facility], [address] [place] [address], [address], [address] Provider: Isatu Garza MD, FACC PCP: Dr. Jason Phipps Supervising provider: Luz Maria Morgan DO, FACC INDICATION: Signs/Symptoms: ,R94.31 Abnormal electrocardiogram (ECG) (EKG),I49.3 Ventricular premature depolarization HISTORY: Gender: M; Age: 69 y/o ; Height: HT 180.3 cm cm; Weight: WT 95.255 kg kg. High Cholesterol; Abnormal EKG; Diabetes; Family HX CAD; Denies smoking. COMPARISON: No comparison. ACCESSION NUMBER(S): [id number] ORDERING CLINICIAN: ISATU GARZA TECHNIQUE: ONE DAY protocol. Stress injection: Date:01-05-25, 31.3 mCi of Myoview IV 20 seconds after rapid injection of Lexiscan. Rest injection: Date: 01-05-25, 9.0 mCi of Myoview IV at rest. The patient had a rapid injection of 0.4 mg of Lexiscan IV over 10 seconds. Imaging was performed by gated tomographic technique. Reason for Lexiscan: DJD STRESS TEST DATA: Resting heart rate was 84 BPM. Resting blood pressure was 134/70 mmHg. Peak blood pressure was 132/58 mmHg. Peak heart rate was 123 BPM. TEST TERMINATED DUE TO: Protocol completed FINDINGS: STRESS TEST RESULTS: Resting electrocardiogram revealed sinus rhythm, inferior wall myocardial infarction. There were no significant ischemic ECG changes or dysrhythmias. The patient did not have chest pains/symptoms during procedure. There was a normal recovery phase. IMAGING RESULTS: Image quality was good. Rest and stress tomographic images were reviewed and revealed normal perfusion without evidence of ischemia, myocardial infarction, or left ventricular dilatation with stress. Overall left ventricular systolic function appeared to be abnormal with severe inferior infero apical predominantly fixed perfusion defect. Mild aleksandar-infarction ischemia can not be excluded Ejection fraction was 36%. TID is 1.14 and is normal. There was no evidence of significant attenuation artifact. Procedure Note Isatu Garza MD - 01/07/2025 Interpreted By: Isatu Garza and Giannuzzi Michael STUDY: MYOCARDIAL PERFUSION STRESS TEST WITH LEXISCAN Performing facility: [facility], [address] [place] [address], [address], [address] Provider: [facility], [facility] PCP: Dr. Jaosn Phipps Supervising provider: Luz Maria Morgan DO, [facility] INDICATION: Signs/Symptoms: ,R94.31 Abnormal electrocardiogram (ECG) (EKG),I49.3 Ventricular premature depolarization HISTORY: Gender: M; Age: 69 y/o ; Height: HT 180.3 cm cm; Weight: WT 95.255 kg kg. High Cholesterol; Abnormal EKG; Diabetes; Family HX CAD; Denies smoking. COMPARISON: No comparison. ACCESSION NUMBER(S): [id number] ORDERING CLINICIAN: ISATU GARZA TECHNIQUE: ONE DAY protocol. Stress injection: Date:01-05-25, 31.3 mCi of Myoview IV 20 seconds after rapid injection of Lexiscan. Rest injection: Date: 01-05-25, 9.0 mCi of Myoview IV at rest. The patient had a rapid injection of 0.4 mg of Lexiscan IV over 10 seconds. Imaging was performed by gated tomographic technique. Reason for Lexiscan: DJD STRESS TEST DATA: Resting heart rate was 84 BPM. Resting blood pressure was 134/70 mmHg. Peak blood pressure was 132/58 mmHg. Peak heart rate was 123 BPM. TEST TERMINATED DUE TO: Protocol completed FINDINGS: STRESS TEST RESULTS: Resting electrocardiogram revealed sinus rhythm, inferior wall myocardial infarction. There were no significant ischemic ECG changes or dysrhythmias. The patient did not have chest pains/symptoms during procedure. There was a normal recovery phase. IMAGING RESULTS: Image quality was good. Rest and stress tomographic images were reviewed and revealed normal perfusion without evidence of ischemia, myocardial infarction, or left ventricular dilatation with stress. Overall left ventricular systolic function appeared to be abnormal with severe inferior infero apical predominantly fixed perfusion defect. Mild aleksandar-infarction ischemia can not be excluded Ejection fraction was 36%. TID is 1.14 and is normal. There was no evidence of significant attenuation artifact. IMPRESSION: Abnormal Lexiscan Myoview cardiac perfusion stress test. Large area of severe inferoapical myocardial infarction with mild aleksandar-infarction ischemia by perfusion imaging. Abnormal left ventricular systolic function with large inferior apical akinesia, ejection fraction 36%. Abnormal resting electrocardiogram suggesting inferior DE. No comparison studies available. Clinical correlation is advised.. Signed by: Isatu Garza 01/07/2025 8:07 AM Dictation workstation: [id number] us Isatu Garza MD CV STRESS PROCEDURES Lilly l Result * TRANSTHORACIC ECHO (TTE) COMPLETE (01/05/2025 12:10 PM EDT) AV mn grad 4 mmHg SYNGO AV pk mao 1.26 m/s SYNGO LV Biplane EF 51 % SYNGO LVOT diam 2.31 cm SYNGO MV E/A ratio 0.66 SYNGO MV avg E/e' ratio 9.68 SYNGO LA vol index A/L 33.2 ml/m2 SYNGO LV EF 43 % SYNGO RV free wall pk S' 14.67 cm/s SYNGO LVIDd 4.89 cm SYNGO Aortic Valve Area by Continuity of Peak Velocity 2.72 cm2 SYNGO AV pk grad 6 mmHg SYNGO Aortic Valve Area by Continuity of VTI 2.28 cm2 SYNGO LV A4C EF 50.9 SYNGO 01/05/2025 11:2 4 AM EDT Narrative [facility] - 01/07/2025 9:53 AM EDT [address], Suite [facility], [place] [address] TRANSTHORACIC ECHOCARDIOGRAM REPORT Patient Name: PORSHA PRIETOMICAELA Reading Physician: [id number] Isatu Garza MD, [facility] Study Date: 01/05/2025 Ordering Provider: [id number] ISATU GARZA MRN/PID: [id number] Fellow: Nurse: Date of /Age: 11 1955 Atmospheric Drier Tender: Pattie serna RDCS, RVT Gender Assigned at Additional Staff: : Height: 180.34 cm Admit Date: Weight: 95.25 kg Admission Status: Outpatient BSA / BMI: 2.15 m2 / 29.29 Department Location: [facility] Heart kg/m2 [place] Blood Pressure: 126 /78 mmHg Study Type: TRANSTHORACIC ECHO (TTE) COMPLETE Diagnosis/ICD: Abnormal electrocardiogram [ECG] [EKG]-R94.31; Atherosclerosis of aorta-I70.0; Localized edema-R60.0 Indication: Diabetes, Hyperlipidemia, History of Pulmonary Embolism, POC-Kidney Stone with Dr. Roland- Pending CPT Codes: Echo Complete w Full Doppler-[id number] Study Detail: The following Echo studies were performed: 2D, M-Mode, Doppler and color flow. Image quality for this study is less than ideal. PHYSICIAN INTERPRETATION: Left Ventricle: Left ventricular ejection fraction is mildly decreased by visual estimate at 40-45%. Wall motion is abnormal. The left ventricular cavity size is upper limits of normal. There is normal septal and normal posterior left ventricular wall thickness. Spectral Doppler shows a normal pattern of left ventricular diastolic filling. Left Atrium: The left atrial size is normal. Right Ventricle: The right ventricle is normal in size. There is normal right ventricular global systolic function. Right Atrium: The right atrial size is normal. Aortic Valve: The aortic valve is trileaflet. The aortic valve area by VTI is 2.28 cm with a peak velocity of 1.26 m/s. The peak and mean gradients are 6 mmHg and 4 mmHg, respectively, with a dimensionless index of 0.54. There is no evidence of aortic valve stenosis. There is no evidence of aortic valve regurgitation. Mitral Valve: The mitral valve is normal in structure. The doppler estimated peak and mean diastolic gradients are 4 mmHg and 2 mmHg, respectively. There is no evidence of mitral valve regurgitation. The E Vmax is 0.58 m/s. Tricuspid Valve: The tricuspid valve is structurally normal. No evidence of tricuspid regurgitation. Pulmonic Valve: The pulmonic valve is structurally normal. There is no indication of pulmonic valve regurgitation. Pericardium: No pericardial effusion noted. Aorta: The aortic root is normal. Additional Comments: No comparison study available. No significant valvluar heart disease. Sub Quality study. Normal chamber sizes. Abnormal wall motion with probable InferoApical Hypokinesis, LVEF 40-45%. Clinical correlation is advised. CONCLUSIONS: 1. Sub Quality study. 2. Left ventricular ejection fraction is mildly decreased by visual estimate at 40-45%. 3. Abnormal wall motion with probable InferoApical Hypokinesis, LVEF 40-45%. 4. There is normal right ventricular global systolic function. 5. Normal chamber sizes. 6. No significant valvluar heart disease. 7. No comparison study available. 8. Clinical correlation is advised. QUANTITATIVE DATA SUMMARY: 2D MEASUREMENTS: Normal Ranges: Ao Root s: 2.80 cm LAs: 3.33 cm (2.7-4.0cm) RVIDd: 3.13 cm (0.9-3.6cm) IVSd: 1.33 cm (0.6-1.1cm) LVPWd: 0.89 cm (0.6-1.1cm) LVIDd: 4.89 cm (3.9-5.9cm) LVIDs: 3.54 cm LV Mass Index: 94.0 g/m2 LVEDV Index: 55.19 ml/m2 LV % FS 27.6 % LEFT ATRIUM: Normal Ranges: LA Vol A4C: 43.8 ml (22+/-6mL/m2) LA Vol A2C: 93.0 ml LA Vol BP: 71.6 ml LA Vol Index A4C: 20.4ml/m2 LA Vol Index A2C: 43.2 ml/m2 LA Vol Index BP: 33.2 ml/m2 LA Vol A4C: 41.2 ml LA Vol A2C: 87.9 ml LA Vol Index BSA: 30.0 ml/m2 LV SYSTOLIC FUNCTION: Normal Ranges: EF-A4C View: 51 % (>=55%) EF-A2C View: 47 % EF-Biplane: 51 % EF-Visual: 43 % LV EF Reported: 43 % LV DIASTOLIC FUNCTION: Normal Ranges: MV Peak E: 0.58 m/s (0.7-1.2 m/s) MV Peak A: 0.88 m/s (0.42-0.7 m/s) E/A Ratio: 0.66 (1.0-2.2) MV e' 0.060 m/s (>8.0) MV lateral e' 0.07 m/s MV medial e' 0.05 m/s E/e' Ratio: 9.68 (<8.0) MITRAL VALVE: Normal Ranges: MV Vmax: 0.97 m/s (<=1.3m/s) MV peak P.8 mmHg (<5mmHg) MV mean P.6 mmHg (<48mmHg) MV VTI: 22.86 cm (10-13cm) MV DT: 154 msec (150-240msec) AORTIC VALVE: Normal Ranges: AoV Vmax: 1.26 m/s (<=1.7m/s) AoV Peak P.4 mmHg (<20mmHg) AoV Mean P.1 mmHg (1.7-11.5mmHg) LVOT Max Mao: 0.82 m/s (<=1.1m/s) AoV VTI: 27.12 cm (18-25cm) LVOT VTI: 14.73 cm LVOT Diameter: 2.31 cm (1.8-2.4cm) AoV Area, VTI: 2.28 cm2 (2.5-5.5cm2) AoV Area,Vmax: 2.72 cm2 (2.5-4.5cm2) AoV Dimensionless Index: 0.54 RIGHT VENTRICLE: RV Basal 3.64 cm RV Mid 2.90 cm RV Major 6.3 cm RV s' 0.15 m/s TRICUSPID VALVE/RVSP: Normal Ranges: Est. RA Pressure: 3 mmHg IVC Diam: 2.67 cm PULMONIC VALVE: Normal Ranges: RVOT Vmax: 0.77 m/s (0.6-0.9m/s) AORTA: Asc Ao Diam 3.05 cm [id number] Isatu Garza MD, FACC Electronically signed on 01/07/2025 at 9:53:54 AM Final Procedure Note Isatu Garza MD - 01/07/[address], [address], [place] [address] TRANSTHORACIC ECHOCARDIOGRAM REPORT Patient Name: PORSHA GRACE Reading Physician: [id number] GarzaND, [facility] Study Date: 01/05/2025 Ordering Provider: Byron GARZA MRN/PID: [id number] Fellow: Nurse: Date of /Age: 11 1955 Atmospheric Drier Tender: Niurka serna RDCS, RVT Gender Assigned at Additional Staff: : Height: 180.34 cm Admit Date: Weight: 95.25 kg Admission Status: Outpatient BSA / BMI: 2.15 m2 / 29.29 Department Location: [facility] kg/m2 [place] Blood Pressure: 126 /78 mmHg Study Type: TRANSTHORACIC ECHO (TTE) COMPLETE Diagnosis/ICD: Abnormal electrocardiogram [ECG] [EKG]-R94.31;Atherosclerosis of aorta-I70.0; Localized edema-R60.0 Indication: Diabetes, Hyperlipidemia, History of Pulmonary Embolism, POC-Kidney Stone with Dr. Roland- Pending CPT Codes: Echo Complete w Full Doppler-[id number] Study Detail: The following Echo studies were performed: 2D, M-Mode,Doppler and color flow. Image quality for this study is less thanideal. PHYSICIAN INTERPRETATION: Left Ventricle: Left ventricular ejection fraction is mildly decreased byvisual estimate at 40-45%. Wall motion is abnormal. The left ventricularcavity size is upper limits of normal. There is normal septal and normalposterior left ventricular wall thickness. Spectral Doppler shows a normalpattern of left ventricular diastolic filling. Left Atrium: The left atrial size is normal. Right Ventricle: The right ventricle is normal in size. There is normalright ventricular global systolic function. Right Atrium: The right atrial size is normal. Aortic Valve: The aortic valve is trileaflet. The aortic valve area by VTIis 2.28 cm with a peak velocity of 1.26 m/s. The peak and mean gradientsare 6 mmHg and 4 mmHg, respectively, with a dimensionless index of 0.54.There is no evidence of aortic valve stenosis. There is no evidence of aortic valve regurgitation. Mitral Valve: The mitral valve is normal in structure. The dopplerestimated peak and mean diastolic gradients are 4 mmHg and 2 mmHg,respectively. There is no evidence of mitral valve regurgitation. The EVmax is 0.58 m/s. Tricuspid Valve: The tricuspid valve is structurally normal. No evidenceof tricuspid regurgitation. Pulmonic Valve: The pulmonic valve is structurally normal. There is noindication of pulmonic valve regurgitation. Pericardium: No pericardial effusion noted. Aorta: The aortic root is normal. Additional Comments: No comparison study available. No significantvalvluar heart disease. Sub Quality study. Normal chamber sizes. Abnormalwall motion with probable InferoApical Hypokinesis, LVEF 40-45%. Clinicalcorrelation is advised. CONCLUSIONS: 1. Sub Quality study. 2. Left ventricular ejection fraction is mildly decreased by visualestimate at 40-45%. 3. Abnormal wall motion with probable InferoApical Hypokinesis, FSVG81-22%. 4. There is normal right ventricular global systolic function. 5. Normal chamber sizes. 6. No significant valvluar heart disease. 7. No comparison study available. 8. Clinical correlation is advised. QUANTITATIVE DATA SUMMARY: 2D MEASUREMENTS: Normal Ranges: Ao Root s: 2.80 cm LAs: 3.33 cm (2.7-4.0cm) RVIDd: 3.13 cm (0.9-3.6cm) IVSd: 1.33 cm (0.6-1.1cm) LVPWd: 0.89 cm (0.6-1.1cm) LVIDd: 4.89 cm (3.9-5.9cm) LVIDs: 3.54 cm LV Mass Index: 94.0 g/m2 LVEDV Index: 55.19 ml/m2 LV % FS 27.6 % LEFT ATRIUM: Normal Ranges: LA Vol A4C: 43.8 ml (22+/-6mL/m2) LA Vol A2C: 93.0 ml LA Vol BP: 71.6 ml LA Vol Index A4C: 20.4ml/m2 LA Vol Index A2C: 43.2 ml/m2 LA Vol Index BP: 33.2 ml/m2 LA Vol A4C: 41.2 ml LA Vol A2C: 87.9 ml LA Vol Index BSA: 30.0 ml/m2 LV SYSTOLIC FUNCTION: Normal Ranges: EF-A4C View: 51 % (>=55%) EF-A2C View: 47 % EF-Biplane: 51 % EF-Visual: 43 % LV EF Reported: 43 % LV DIASTOLIC FUNCTION: Normal Ranges: MV Peak E: 0.58 m/s (0.7-1.2 m/s) MV Peak A: 0.88 m/s (0.42-0.7 m/s) E/A Ratio: 0.66 (1.0-2.2) MV e' 0.060 m/s (>8.0) MV lateral e' 0.07 m/s MV medial e' 0.05 m/s E/e' Ratio: 9.68 (<8.0) MITRAL VALVE: Normal Ranges: MV Vmax: 0.97 m/s (<=1.3m/s) MV peak P.8 mmHg (<5mmHg) MV mean P.6 mmHg (<48mmHg) MV VTI: 22.86 cm (10-13cm) MV DT: 154 msec (150-240msec) AORTIC VALVE: Normal Ranges: AoV Vmax: 1.26 m/s (<=1.7m/s) AoV Peak P.4 mmHg (<20mmHg) AoV Mean P.1 mmHg (1.7-11.5mmHg) LVOT Max Mao: 0.82 m/s (<=1.1m/s) AoV VTI: 27.12 cm (18-25cm) LVOT VTI: 14.73 cm LVOT Diameter: 2.31 cm (1.8-2.4cm) AoV Area, VTI: 2.28 cm2 (2.5-5.5cm2) AoV Area,Vmax: 2.72 cm2 (2.5-4.5cm2) AoV Dimensionless Index: 0.54 RIGHT VENTRICLE: RV Basal 3.64 cm RV Mid 2.90 cm RV Major 6.3 cm RV s' 0.15 m/s TRICUSPID VALVE/RVSP: Normal Ranges: Est. RA Pressure: 3 mmHg IVC Diam: 2.67 cm PULMONIC VALVE: Normal Ranges: RVOT Vmax: 0.77 m/s (0.6-0.9m/s) AORTA: Asc Ao Diam 3.05 cm [id number] Isatu Garza MD, FACC Electronically signed on 01/07/2025 at 9:53:54 AM Final us Isatu Garza MD CV ECHO PROCEDURES Final Result SYNGO * Vascular US Lower Extremity Venous Duplex Bilateral (12/27/2024 8:03 AM EDT) Anatomical Region Laterality Modality Lower Extremities Ultrasound 12/27/2024 8:03 AM EDT Narrative 12/27/2024 8:05 AM EDT [facility] [place] [address] [place] [address] Ultrasound Report Signed Patient: Porsha Grace MR#: [id number] : 1955 Acct:[id number] Age/Sex: 69 / M ADM Date: 12/23/24 Loc: Room: Type: [facility] Attending Dr: Isatu Garza MD Ordering Provider: Isatu Garza Date of Service: 12/23/24 US/US venous duplex LE BI: Z01.810, R94.31, E78.2, I70.0, R60.9, Z86.711 Copies to: Isatu Garza BILATERAL LOWER EXTREMITY VENOUS DUPLEX INDICATION: Bilateral lower extremity edema, pain and tenderness. PROCEDURE: Color-flow duplex scanning is used to interrogate the deep venous system of the right and left lower extremities. The common femoral vein, femoral vein and popliteal vein show good compressibility with normal proximal and distal augmentation. The calf veins are compressible. US/US venous duplex LE BI IMPRESSION: NO EVIDENCE FOR DEEP VEIN THROMBOSIS OR PROXIMAL SUPERFICIAL THROMBOPHLEBITIS IN THE RIGHT OR LEFT LOWER EXTREMITY. Impression dictated by: Ryley Valera MD,FACS,FSVS 12/27/2024 8:03 AM Dictation Location: [place] [address] Tech: Odessa Lionel Transcribed By: MARCELO 12/27/24 08 Dictated By: Ryley Valera MD 12/27/24 08 Signed By: <Electronically signed by Ryley Valera MD in OV> 12/27/24 0803 us Isatu Garza MD CV VASCULAR PROCEDURES Fi nal Result * ECG 12 Lead (12/16/2024 1:13 PM EDT) Narrative Isatu Garza MD - 12/16/2024 1:13 PM EDT Sinus rhythm, inferior lateral Q's question prior myocardial infarction. Rate 81. Isatu Garza MD ECG ORDERABLES Final Res ult from Last 3 Months Insurance MEDICARE PART A AND B GENERIC COMMERCIAL MEDICARE PART A AND B GENERIC COMMERCIAL Care Teams Cornice Upholsterer Relationship Specialty Start Date End Date Daja Phipps DO [address] [facility] [address] [place] [address] PCP - General Internal Medicine 12/16/24 Raheem Roland MD [address] [facility] [place] [address] Referring Physician Urology 12/16/24 Isatu Garza MD [address] [place] [address] [address] [place] [address] Consulting Physician Cardiology 01/21/25
--- OUTSIDE RECORDS SUMMARY | 2025-03-15 07:30 | XMS_ITS | Clinical Summary ---
Author Organization [facility] Address [address] [facility] [place] [address] Care Team Providers Care Hatchery Manager Name Role Phone Unavailable Primary Care Provider Unavailabl e Source Comments The following information is NOT included in Care Everywhere downloads:Psychiatric notes, ECG results, Cardiac Rehab notes, Pulmonary Function notes, data from [employer] (includes but not limited toPregnancy data,audiograms, eye exams, pre-surgical evaluation notes, well-child exam data).[facility] Allergies Active Allergy Reactions Criticality Noted Date Comments Alum Sulfate-Ca Acetate 12/23/2022 Medications glyBURIDE (DIABETA) 5 MG tablet Take 1 Tablet by mouth 2 times daily. 04/29/2022 Active metformin (GLUCOPHAGE-XR) 750 MG XR tablet TAKE 3 TABLETS BY MOUTH once DAILY with a meal 05/04/2022 Active omeprazole (PRILOSEC) 20 MG capsule Take 20 mg by mouth daily. Active FEXOFENADINE HCL ORAL Take by mouth. Active Active Problems Problem Noted Date Diagnosed Date Choledocholithiasis 12/23/2022 Diabetes mellitus 12/23/2022 Ampullary stenosis Acute biliary pancreatitis without infection or necrosis Immunizations Immunization Administration Dates Next Due Influenza, Injectable, MDCK, Quadrivalent, Preservative Free (KZJ=841) 03/23/2022 Influenza, injectable, adjuv anted, quadrivalent, preservative free (KHC=565) 03/01/2023 Influenza, injectable, quadr ivalent, preservative free (TXB=872) 03/18/2021,03/20/2017,02/09/2016 Influenza, intradermal, triv alent, preservative free (IIV3) (LGL=552) 03/05/2019,03/13/2018,04/03/2015 Influenza, intranasal, live, trivalent (LAIV3) (KJR=558) 03/02/2019 Influenza, unspecified formulation (CVX=88) 04/02,02/09/2020 Moderna Monovalent (12+ yrs) COVID-19 vaccine, mRNA, spike protein, LNP, PF, 100 mcg/0.5 mL (JOF=073) 09/06/2020,08/16/2020 Moderna Monvalent (6 yrs thr ough 11 yrs) SARS-COV-2 (COVID-19) vaccine, mRNA, spike protein, LNP, pres. free, 50 mcg/0.5 mL (DDC=494) 03/23/2022 Pfizer Monovalent (12+ yrs) SARS-COV-2 (COVID-19) vaccine, mRNA, spike protein, LNP, pres. free, 30 mcg/0.3mL dose (QNG=117) 03/18/2021,09/06/2020,08/16/2020 Pfizer Monovalent (12+ yrs) SARS-COV-2 (COVID-19) vaccine, mRNA, spike protein, LNP, pres. free, 30 mcg/0.3mL dose, susie-sucrose (GKN=554) 09/27/2021 Pneumococcal conjugate 20 va lent (PCV20), polysaccharide [id number] conjugate, adjuvant, PF (CUF=977) 12/13/2022,08/09/2022 Zoster Recombinant (RZV,Shingles) (ZYX=607) 11/30 Social History Tobacco Use Types Packs/Day Years Used Date Smoking Tobacco: Never Passive Smoke Exposure: Never Smokeless Tobacco: Never Tobacco Cessation:Counseling Given: Not Answered Alcohol Use Standard Drinks/Week Comments Yes 0 (1 standard drink = 0.6 oz pur e alcohol) rare Sexually Active Control Partners Comments Yes Female Substance Use Types Use/Week Comments Not Currently Sex and Gender Information Value Date Recorded Sex Assigned at Not on file Legal Sex Male 10:02 AM EDT Gender Identity Not on file Sexual Orientation Not on file Last Filed Vital Signs Vital Sign Reading Time Taken Comments Blood Pressure 139/81 04/07/2023 10:10 AM EST Pulse 70 04/07/2023 10:10 AM EST Temperature 36.6 C (97.8 F) 04/07/2023 8:25 AM EST Respiratory Rate 18 04/07/2023 10:10 AM EST Oxygen Saturation 96% 04/07/2023 10:10 AM EST Inhaled Oxygen Concentration - - Weight 88.5 kg (195 lb) 02/17/2023 9:10 AM EDT Height 180.3 cm (5' 11 ) 02/17/2023 9:10 AM EDT Body Mass Index 27.2 02/17/2023 9:10 AM EDT Plan of Treatment Health Maintenance Due Date Last Done Comments Colonoscopy 1955 Foot Exam 1955 Vitamin B12 1955 Eye Exam 1955 Urine Protein (microalbumin) 1955 Hepatitis C Antibody 1975 Tdap Booster 1975 Hepatitis A (HAV) Vaccine (optional start 19+ years) 1976 CRC Screening 2002 Cologuard (Stool DNA) 2002 FIT 2002 Hepatitis B (HBV) Vaccine (optional start 60+ years) 2017 Shingles (RZV) Vaccine (2 of 2) 02/07/2023 3 Hemoglobin A1C 06/15/2023 12/13/2022, 05/02, 12/22/2020, Additional history exists Lipid Profile 12/24/2023 12/23/2022, 05/02, 05/12/2020, Additional history exists Basic Metabolic Panel 01/18/2024 01/17/2023 , 12/24/2022, 12/23/2022, Additional history exists COVID-19 Vaccine (2024- season) 2025 03/01/2023, 03/23/2022, 03/23/2022, Additional history exists Influenza Vaccine (#1) 2025 3, 03/23/2022, 04/17/2021, Additional history exists RSV vaccine (adult) (1 - 1-d ose 75+ series) 2032 Pneumococcal Vaccine(s) (50+ yrs) Completed 023, 08/09/2022 Medical Devices Implanted Type Area Copier Repair Technician Device Identifier Shelf Expiration Date Model / Serial / Lot Stnt Vinod 10fr 7cm Ddnl Bnd Dlv Ea1 [id number] - [id number] Implanted:Qty: 1 on 12/23/2022 by Todd Collins MD at INPATIENT DEPARTMENTS Stent Synthetic N/A: Bile Duct [employer] 10/30/2024 [id number] / / [id number] Stnt Pncr 5fr 3cm Strg Radopq Ea1 [id number] - [id number] Implanted:Qty: 1 on 12/23/2022 by Todd Collins MD at INPATIENT DEPARTMENTS N/A: Bile Duct [employer] 02/20/2024 [id number] / / [id number] Explanted Type Area Copier Repair Technician Device Identifier Shelf Expiration Date Model / Serial / Lot Stnt Vinod 10fr 7cm Ddnl Bnd Dlv Ea1 [id number] - [id number] Explanted:Qty: 1 on 02/24/2023 by Todd Collins MD at INPATIENT DEPARTMENTS Stent Synthetic N/A: Bile Duct [employer] 12/16/2024 [id number] / / [id number] Procedures Procedure Name Priority Date/Time Associated Diagnosis Comments BASIC METABOLIC PANEL Routine 12/24/2022 6:39 AM EDT from Last 3 Months or Most Recently Relevant to Health Maintenance Results * (ABNORMAL) BASIC METABOLIC PANEL (12/24/2022 6:39 AM EDT) Glucose 128(H) 80 - 116 mg/dL 12/24/2022 8:44 AM EDT [facility] Sodium 139 135 - 148 mmol/L 12/24/2022 8:44 AM EDT [facility] Potassium 4.2 3.3 - 5.3 mmol/L 12/24/2022 8:44 AM EDT [facility] Carbon Dioxide 22 21 - 30 mmol/L 12/24/2022 8:44 AM EDT [facility] Chloride 105 97 - 111 mmol/L 12/24/2022 8:44 AM EDT [facility] Blood Urea Nitrogen 13 8 - 22 mg/dL 12/24/2022 8:44 AM EDT [facility] Creatinine 0.78(L) 0.80 - 1.30 mg/dL 12/24/2022 8:44 AM EDT [facility] Calcium 8.7 8.4 - 10.4 mg/dL 12/24/2022 8:44 AM EDT [facility] Anion Gap 16 10 - 20 12/24/2022 8:44 AM EDT [facility] Estimated GFR (CKD-EPI) 99 >=60 mL/min/1. 73sqm 12/24/2022 8:44 AM EDT [facility] Comment: 2020 CKD EPI Equation using Creatinine without Race Comment: Estimated glomerular filtration rate (eGFR) is calculated without a race coefficient. Values should be interpreted in the context of the patient's full clinical presentation. Reference: 1. Magno C, Oleg M, Kin DC, et al.. A Unifying Approach for GFR Estimation: Recommendations of the NKF-ASN Task Force on Reassessing the Inclusion of Race in Diagnosing Kidney Disease. [place] Journal of Kidney Diseases 2021;79(2):268- 88.e1. 2. N Engl J Med 1 Vol. 385 Issue 19 Pages 4629-2118 Blood BLOOD SPECIMEN / Unknown Venipuncture / Unknown 12/24/2022 6:39 AM EDT 12/24/2022 6:52 AM EDT Saundra Santana MD [address] GENERAL LAB Final Result [facility] [address] [place] [phone] from Last 3 Months or Most Recently Relevant to Health Maintenance Insurance [facility] Advance Directives * Full Code (Latest Code Status on File) Date Activated Date Inactivated Comments 12/23/2022 1:18 PM 12/24/2022 6:42 PM Question Answer Comments Documentation of decision pr ocess for this code status: Patient and surrogate unable or unavailable to discuss. There is no previous documentation of code status. Defaulting to Full Code
--- OUTSIDE RECORDS SUMMARY | 2025-03-15 07:30 | XMS_ITS | Encounter Summary ---
Author Organization [facility] Address [address] [place] [address] Phone Care Team Providers Care Mortician Supplies Sales Representative Name Role Phone Daja Phipps DO Primary Care Provi reese Raheem Roland MD Unavailable [phone] Charly Garcia MD Unavailable [phone] Encounter Details Date Type Department Care Team (Late st Contact Info) Description 02/08/2025 Scanned Document [facility] [address] [place] [phone] Scanning, Generic Provider Social History Tobacco Use Types Packs/Day Years Used Date Smoking Tobacco: Never Smokeless Tobacco: Never Alcohol Use Standard Drinks/Week Comments Yes 0 (1 standard drink = 0.6 oz pur e alcohol) rarely Sex and Gender Information Value Date Recorded Sex Assigned at Not on file Legal Sex Male 1:48 PM EDT Gender Identity Male 02/02/2025 2:28 PM EDT Sexual Orientation Not on file documented as of this encounter Plan of Treatment Upcoming Encounters Date Type Department Care Team (Late st Contact Info) Description 04/22/2025 10:15 AM EST Office Visit [facility] Medical Office Building [address] [phone] Charly Garcia MD [address] [address] documented as of this encounter Visit Diagnoses Not on filedocumented in this encounter Additional Health Concerns Assessment Noted Time A fall risk assessment has been complete d for the patient 12/16/2024 10:31 AM EDT documented as of this encounter Care Teams Mortician Supplies Sales Representative Relationship Specialty Start Date End Date Daja Phipps DO [address] [facility] [address] [place] [address] PCP - General Internal Medicine 12/16/24 Raheem Roland MD [address] [facility] [place] [address] Referring Physician Urology 12/16/24 Charly Garcia MD [address] [address] Consulting Physician Cardiology 01/21/25 documented as of this encounter
--- OUTSIDE RECORDS SUMMARY | 2025-03-15 07:30 | XMS_ITS | Encounter Summary ---
Author Organization [facility] Address [address] [place] [address] Care Team Providers Care Chemistry Instructor Name Role Phone Calderón-[place], Daja Umana DO Primary Care Provider Jana Plummer MD Unavailable [phone] Charly Garcia MD Unavailable [phone] Raheem Roland MD Unavailable [phone] Encounter Details Date Type Department Care Team (Late st Contact Info) Description 11/02/2022 Abstract [facility] [address] [facility] [address] [place] [address] Guillermo Garcia MD [address] [facility] [address] [place] [address] Social History Tobacco Use Types [...] Description 04/01/2025 10:30 AM EDT Office Visit [facility] [address] [place] [phone] Zenia Bautista MD [address] [place] [address] 06/14/2025 8:45 AM EST Office Visit [facility] [address] [place] [phone] Daja Phipps DO [address] [place] [address] 02/23/2026 10:20 AM EDT Office Visit [facility] [address] [place] [address] Jana Plummer MD [address] [place] [address] documented as of this encounter Visit Diagnoses Not on filedocumented in this encounter Care Teams Chemistry Instructor Relationship Specialty Start Date End Date Daja Phipps DO [address] [place] [address] PCP - General Internal Medicine 11/04/22 Jana Plummer MD [address] [place] [address] Referring Physician Dermatology 01/16/24 Charly Garcia MD [address] [place] [address] Consulting Physician Cardiology 02/20/25 Raheem Roland MD [address] [place] [address] Consulting Physician Urology 02/20/25 documented as of this encounter
--- OUTSIDE RECORDS SUMMARY | 2025-03-15 07:30 | XMS_ITS | Encounter Summary ---
Author Organization [facility] Address [address] [place] [address] Phone Care Team Providers Care Poke In Name Role Phone Daja Phipps DO Primary Care Provi reese Raheem Roland MD Unavailable [phone] Charly Garcia MD Unavailable [phone] Encounter Details Date Type Department Care Team (Late st Contact Info) Description 02/04/2025 Scanned Document [facility] [address] [place] [phone] Scanning, Generic Provider Social History Tobacco Use [...] Description 04/22/2025 10:15 AM EST Office Visit [facility] Medical Office Building [address] [phone] Charly Garcia MD [address] [address] documented as of this encounter Visit Diagnoses Not on filedocumented in this encounter Additional Health Concerns Assessment Noted Time A fall risk assessment has been complete d for the patient 12/16/2024 10:31 AM EDT documented as of this encounter Care Teams Poke In Relationship Specialty Start Date End Date Daja Phipps DO [address] [facility] [address] [place] [address] PCP - General Internal Medicine 12/16/24 Raheem Roland MD [address] [facility] [place] [address] Referring Physician Urology 12/16/24 Charly Garcia MD [address] [address] Consulting Physician Cardiology 01/21/25 documented as of this encounter
--- OUTSIDE RECORDS SUMMARY | 2025-03-15 07:30 | XMS_ITS | Encounter Summary ---
Author Organization [facility] Address [address] [place] [address] Care Team Providers Care Nsh Teacher Name Role Phone Daja Pugh DO Primary Care Provi reese Source Comments In the event this information is protected by the Federal Confidentiality of Alcohol and Drug AbusePatient Records regulations: The Federal rules restrict any use of the information to criminally investigate or prosecute any alcohol or drug abuse patient.[facility] Encounter Details Date Type Department Care Team (Late st Contact Info) Description 07/26/2022 Patient Msg Pre Anesthesia [address] [place], [place] [phone] Rubia Murphy PA-C [address] [place] [address] PATIENT PREOPERATIVE INSTRUCTIONS Social History Tobacco Use [...] N ot on file 07/25/2022 Data from: https://www.neighborhoodatlas.medicine.[facility].edu/. Last address used for calculation [address] [...] on filedocumented in this encounter Care Teams Nsh Teacher Relationship Specialty Start Date End Date Daja Pugh DO [address] [place] [address] [place] [address] PCP - General Internal Medicine 07/26/22 documented as of this encounter
--- OUTSIDE RECORDS SUMMARY | 2025-03-15 07:30 | XMS_ITS | Encounter Summary ---
Author Organization [facility] Address [address] [facility] [place] [address] Care Team Providers Care Lozenge Maker Name Role Phone Daja Phipps DO Primary Care Provider Jana Plummer MD Unavailable [phone] Charly Garcia MD Unavailable [phone] Raheem Roland MD Unavailable [phone] Encounter Details Date Type Department Care Team (Late st Contact Info) Description 11/04/2022 Abstract [facility] [address] [facility] [address] [place] [address] Daja Phipps, DO [address] [place] [address] Social History Tobacco Use Types Packs/Day Years [...] [address] [place] [address] 06/14/2025 8:45 AM EST Office Visit [facility] [place] [facility] [address] [place] [address] Daja Phipps DO [address] [place] [address] 02/23/2026 10:20 AM EDT Office Visit [facility] [address] [place] [address] Jana Plummer MD [address] [place] [address] documented as of this encounter Visit Diagnoses Not on filedocumented in this encounter Care Teams Lozenge Maker Relationship Specialty Start Date End Date Daja Phipps DO [address] [place] [address] PCP - General Internal Medicine 11/04/22 Jana Plummer MD [address] [place] [address] Referring Physician Dermatology 01/16/24 Charly Garcia MD [address] [place] [address] Consulting Physician Cardiology 02/20/25 Raheem Roland MD [address] [place] [address] Consulting Physician Urology 02/20/25 documented as of this encounter
--- OUTSIDE RECORDS SUMMARY | 2025-03-15 07:30 | XMS_ITS | Encounter Summary ---
Author Organization [facility] Address [address] [facility] [place] [address] Care Team Providers Care Asphalt Distributor Operator Name Role Phone Daja Phipps DO Primary Care Provider Jana Plummer MD Unavailable [phone] Charly Garcia MD Unavailable [phone] Raheem Roland MD Unavailable [phone] Encounter Details Date Type Department Care Team (Late st Contact Info) Description 04/05/2024 [facility] [address] [facility] [address] [place] [phone] A, Unknown Practice [address] [place], [place] [phone] Social History Tobacco Use Types Packs/Day Years [...] 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 Not on file Not on file Not on file documented as of this encounter Plan of Treatment Upcoming Encounters Date Type Department Care Team (Late st Contact Info) Description 04/01/2025 10:30 AM EDT Office Visit [facility] [address] [place] [address] Zenia Bautista MD [address] [place] [address] 06/14/2025 8:45 AM EST Office Visit [facility] [address] [place] [address] Daja Phipps DO [address] [place] [address] 02/23/2026 10:20 AM EDT Office Visit [facility] [address] [place] [address] Jana Plummer MD [address] [place] [address] documented as of this encounter Procedures Procedure [...] on filedocumented in this encounter Care Teams Asphalt Distributor Operator Relationship Specialty Start Date End Date Daja Phipps DO [address] [place] [address] PCP - General Internal Medicine 11/04/22 Jana Plummer MD [address] [place] [address] Referring Physician Dermatology 01/16/24 Charly Garcia MD [address] [place] [address] Consulting Physician Cardiology 02/20/25 Raheem Roland MD [address] [place] [address] Consulting Physician Urology 02/20/25 documented as of this encounter
--- OUTSIDE RECORDS SUMMARY | 2025-03-15 07:31 | XMS_ITS | Encounter Summary ---
Author Organization [facility] Address [address] [facility] [place] [address] Care Team Providers Care Machine I Trimmer Name Role Phone Calderón-Axel Daja Umana DO Primary Care Provider Jana Plummer MD Unavailable [phone] Charly Garcia MD Unavailable [phone] Raheem Roland MD Unavailable [phone] Encounter Details Date Type Department Care Team (Late st Contact Info) Description 11/29/2024 Orders Only [facility] [address] 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 Not on file Not on file Not on file documented as of this encounter Plan of Treatment Upcoming Encounters Date Type Department Care Team (Late st Contact Info) Description 04/01/2025 10:30 AM EDT Office Visit [facility] [address] [place] [address] Zenia Bautista MD [address] [place] [address] 06/14/2025 8:45 AM EST Office Visit [facility] [address] [place] [address] Daja Phipps, DO [address] [place] [address] 02/23/2026 10:20 AM EDT Office Visit [facility] [address] [place] [address] Jana Plummer MD [address] [place] [address] documented as of this encounter Procedures Procedure Name Priority Date/Time Associated Diagnosis Comments XR ABDOMEN 1 VIEW Routine 11/26/2024 10:04 AM EDT PSA, TOTAL Routine 11/26/2024 8:47 AM EDT documented in this encounter Results * XR abdomen 1 view (11/26/2024 10:04 AM EDT) Anatomical Region Laterality Modality Abdomen Radiographic Mary ging us Noms Provider Unallocated MD GUTIERREZ XR PROCEDURES F inal Result * PSA (11/26/2024 8:47 AM EDT) Blood Venous blood specimen / Unknown us Noms Provider Unallocated LAB BLOOD ORDERABLE S Final Result documented in this encounter Visit Diagnoses Not on filedocumented in this encounter Care Teams Machine I Trimmer Relationship Specialty Start Date End Date Stephane-Daja Reyna DO [address] [place] [address] PCP - General Internal Medicine 11/04/22 Jana Plummer MD [address] [place] [address] Referring Physician Dermatology 01/16/24 Charly Garcia MD [address] [place] [address] Consulting Physician Cardiology 02/20/25 Raheem Roland MD [address] [place] [address] Consulting Physician Urology 02/20/25 documented as of this encounter
--- OUTSIDE RECORDS SUMMARY | 2025-03-15 07:31 | XMS_ITS | Encounter Summary ---
Author Organization [facility] Address [address] [facility] [place] [address] Care Team Providers Care Oncology Account Specialist Name Role Phone Calderón-Axel Daja Umana DO Primary Care Provider Jana Plummer MD Unavailable [phone] Charly Garcia MD Unavailable [phone] Raheem Roland MD Unavailable [phone] Encounter Details Date Type Department Care Team (Late st Contact Info) Description 02/08/2025 Orders Only [facility] [address] [facility] [address] [place] [address] Charly Morgan MD [address] [facility] [place] [address] Social History Tobacco Use Types Packs/Day Years Used Date Smoking Tobacco: Never Smokeless Tobacco: Never Alcohol Use Standard Drinks/Week Comments Yes 5 (1 standard drink = 0.6 oz pur e alcohol) 1-2 drinks/2-4x a month AUDIT-C Answer Date Recorded Q1: How often do you have a drink containing alc ohol? Monthly or less 02/10/2025 Q2: How many drinks containi ng alcohol do you have on a typical day when you are drinking? 1 or 2 02/10/2025 Q3: How often do you have si x or more drinks on one occasion? 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 Monthly or less 02/10/2025 3:00 PM EDT Jayna Langston LPN Q2: How many drinks containing alcohol do you have on a typical day when you are drinking? 1 or 2 02/10/2025 3:00 PM EDT Christina Langston LP N Q3: How often do you have six or more drinks on one occasion? Never 02/10/2025 3:00 PM EDT Christina Langston LP N documented as of this encounter Plan of Treatment Upcoming Encounters Date Type Department Care Team (Late st Contact Info) Description 04/01/2025 10:30 AM EDT Office Visit [facility] [address] [place] [address] Zenia Bautista MD [address] [place] [address] 06/14/2025 8:45 AM EST Office Visit [facility] [address] [place] [address] Daja Phipps DO [address] [place] [address] 02/23/2026 10:20 AM EDT Office Visit [facility] [address] [place] [address] Jana Plummer MD [address] [place] [address] documented as of this encounter Procedures Procedure Name Priority Date/Time Associated Diagnosis Comments CARDIAC CATH Routine 02/08/2025 11:24 AM EDT documented in this encounter Results * CARDIAC CATH (02/08/2025 11:24 AM EDT) Anatomical Region Laterality Modality Radiographic Mary ging us Charly Morgan MD IMG XR PROCEDURES Final Resul t documented in this encounter Visit Diagnoses Not on filedocumented in this encounter Care Teams Oncology Account Specialist Relationship Specialty Start Date End Date Daja Phipps DO [address] [facility] [address] [place] [address] PCP - General Internal Medicine 11/04/22 Jana Plummer MD [address] [facility] [address] [place] [address] Referring Physician Dermatology 01/16/24 Charly Garcia MD [address] [place] [address] Consulting Physician Cardiology 02/20/25 Raheem Roland MD [address] [place] [address] Consulting Physician Urology 02/20/25 documented as of this encounter
--- OUTSIDE RECORDS SUMMARY | 2025-03-15 07:31 | XMS_ITS | Encounter Summary ---
Author Organization [facility] Address [address] [place] [address] Care Team Providers Care Network Technician Name Role Phone Daja Phipps DO Primary Care Provider Jana Plummer MD Unavailable [phone] Charly Garcia MD Unavailable [phone] Raheem Roland MD Unavailable [phone] Encounter Details Date Type Department Care Team (Late st Contact Info) Description 01/29/2023 [facility] [address] [facility] [address] [place] [phone] A, Unknown Practice [address] [place], [place] [phone] Social History Tobacco Use Types Packs/Day Years [...] 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 Not on file Not on file documented as of this encounter Plan of Treatment Upcoming Encounters Date Type Department Care Team (Late st Contact Info) Description 04/01/2025 10:30 AM EDT Office Visit [facility] [address] [place] [address] Zenia Bautista MD [address] [place] [address] 06/14/2025 8:45 AM EST Office Visit [facility] [address] [place] [address] Daja Phipps DO [address] [place] [address] 02/23/2026 10:20 AM EDT Office Visit [facility] [address] [place] [address] Jana Plummer MD [address] [place] [address] documented as of this encounter Procedures Procedure Name Priority Date/Time Associated Diagnosis Comments SCANNED LABS Routine 01/21/2023 8:33 AM EDT documented in this encounter Results * SCANNED LABS (01/21/2023 8:33 AM EDT) us Unknown Practice A LAB CHG PERFORMABLES Final Re sult documented in this encounter Visit Diagnoses Not on filedocumented in this encounter Care Teams Network Technician Relationship Specialty Start Date End Date Daja Phipps DO [address] [place] [address] PCP - General Internal Medicine 11/04/22 Jana Plummer MD [address] [place] [address] Referring Physician Dermatology 01/16/24 Charly Garcia MD [address] [place] [address] Consulting Physician Cardiology 02/20/25 Raheem Roland MD [address] [place] [address] Consulting Physician Urology 02/20/25 documented as of this encounter
--- OUTSIDE RECORDS SUMMARY | 2025-03-15 07:31 | XMS_ITS | Encounter Summary ---
Author Organization [facility] Address [address] [facility] [place] [address] Care Team Providers Care Email Marketing Manager Name Role Phone Daja Phipps DO Primary Care Provider Jana Plummer MD Unavailable [phone] Charly Garcia MD Unavailable [phone] Raheem Roland MD Unavailable [phone] Encounter Details Date Type Department Care Team (Late st Contact Info) Description 01/02/2023 Orders Only [facility] [address] [facility] [address] [place] [phone] A, Unknown Practice [address] [place], [place] [phone] Social History Tobacco Use Types Packs/Day Years [...] 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 Not [...] [address] [place] [address] Zenia Bautista MD [address] [place] [address] 06/14/2025 8:45 AM EST Office Visit [facility] [address] [place] [address] Daja Phipps DO [address] [place] [address] 02/23/2026 10:20 AM EDT Office Visit [facility] [address] [place] [address] Jana Plummer MD [address] [place] [address] documented as of this encounter Procedures Procedure Name Priority Date/Time Associated Diagnosis Comments COLONOSCOPY Routine 08/08/2017 1:41 PM EST documented in this encounter Results * Colonoscopy (08/08/2017 1:41 PM EST) Anatomical Region Laterality Modality Endoscopy us Unknown Practice A ENDOSCOPY PROCEDURE ORDERABLE S Final Result documented in this encounter Visit Diagnoses Not on filedocumented in this encounter Care Teams Email Marketing Manager Relationship Specialty Start Date End Date Daja Phipps DO [address] [place] [address] PCP - General Internal Medicine 11/04/22 Jana Plummer MD [address] [place] [address] Referring Physician Dermatology 01/16/24 Charly Garcia MD [address] [place] [address] Consulting Physician Cardiology 02/20/25 Raheem Roland MD [address] [place] [address] Consulting Physician Urology 02/20/25 documented as of this encounter
--- OUTSIDE RECORDS SUMMARY | 2025-03-15 07:31 | XMS_ITS | Clinical Summary ---
Author Organization [facility] Address [address] [place] [address], [address] [place] [address] Care Team Providers Care Supervisor Purification Name Role Phone Elian Mandel MD Primary Care Provider [phone] Social History Tobacco Use Types Packs/Day Years Used Date Smoking Tobacco: Never Assessed Sex and Gender Information Value Date Recorded Sex Assigned at Not on file Legal Sex Male 12:40 PM EDT Gender Identity Not on file Sexual Orientation Not on file Plan of Treatment Not on file Care Teams Supervisor Purification Relationship Specialty Start Date End Date Elian Mandel MD PCP - General 10/06/15
--- OUTSIDE RECORDS SUMMARY | 2025-03-15 07:31 | XMS_ITS | Encounter Summary ---
Author Organization [facility] Address [address] [facility] [address] Care Team Providers Care Paper Control Clerk Name Role Phone Daja Phipps DO Primary Care Provider Jana Plummer MD Unavailable [phone] Charly Garcia MD Unavailable [phone] Raheem Roland MD Unavailable [phone] Encounter Details Date Type Department Care Team (Late st Contact Info) Description 03/17/2023 [facility] [address] [facility] [address] [place] [phone] A, Unknown Practice [address] [place], [place] [phone] Social History Tobacco Use Types Packs/Day Years [...] 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 [...] [address] [place] [address] 06/14/2025 8:45 AM EST Office Visit [facility] [address] [place] [address] Daja Phipps DO [address] [place] [address] 02/23/2026 10:20 AM EDT Office Visit [facility] [address] [place] [address] Jana Plummer MD [address] [place] [address] documented as of this encounter Procedures Procedure Name Priority Date/Time Associated Diagnosis Comments HM DIABETES EYE EXAM Routine 03/17/2023 2:05 PM EDT documented in this encounter Results * Diabetes Eye Exam (03/17/2023 2:05 PM EDT) us Unknown Practice A HEALTH MAINTENANCE Final Resu lt documented in this encounter Visit Diagnoses Not on filedocumented in this encounter Care Teams Paper Control Clerk Relationship Specialty Start Date End Date Daja Phipps DO [address] [place] [address] PCP - General Internal Medicine 11/04/22 Jana Plummer MD [address] [place] [address] Referring Physician Dermatology 01/16/24 Charly Garcia MD [address] [place] [address] Consulting Physician Cardiology 02/20/25 Raheem Roland MD [address] [place] [address] Consulting Physician Urology 02/20/25 documented as of this encounter
--- OUTSIDE RECORDS SUMMARY | 2025-03-15 07:31 | XMS_ITS | Encounter Summary ---
Author Organization [facility] Address [address] [facility] [place] [address] Care Team Providers Care Field Auto Appraiser Name Role Phone Daja Phipps DO Primary Care Provider Jana Plummer MD Unavailable [phone] Charly Garcia MD Unavailable [phone] Raheem Roland MD Unavailable [phone] Encounter Details Date Type Department Care Team (Late st Contact Info) Description 12/21/2022 Abstract [facility] [address] [facility] [address] [place] [address] Mandie Arriola, MARY [address] [facility] [address] [place] [address] Social History Tobacco Use Types Packs/Day Years [...] [address] [place] [address] Zenia Bautista MD [address] [place] [address] 06/14/2025 8:45 AM EST Office Visit [facility] [address] [place] [address] Daja Phipps DO [address] [place] [address] 02/23/2026 10:20 AM EDT Office Visit [facility] [address] [place] [address] Jana Plummer MD [address] [place] [address] documented as of this encounter Visit Diagnoses Not on filedocumented in this encounter Care Teams Field Auto Appraiser Relationship Specialty Start Date End Date Daja Phipps DO [address] [place] [address] PCP - General Internal Medicine 11/04/22 Jana Plummer MD [address] [place] [address] Referring Physician Dermatology 01/16/24 Charly Garcia MD [address] [place] [address] Consulting Physician Cardiology 02/20/25 Raheem Roland MD [address] [place] [address] Consulting Physician Urology 02/20/25 documented as of this encounter
--- OUTSIDE RECORDS SUMMARY | 2025-03-15 07:31 | XMS_ITS | Encounter Summary ---
Author Organization [facility] Address [address] [place] [address] Phone Care Team Providers Care Guide Dog Trainer Name Role Phone Daja Phipps DO Primary Care Provi reese Raheem Roland MD Unavailable Charly Garcia MD Unavailable [phone] Encounter Details Date Type Department Care Team (Late st Contact Info) Description 12/07/2024 Scanned Document [facility] [address] [place] [phone] Scanning, Generic Provider Social History Tobacco Use [...] Description 04/22/2025 10:15 AM EST Office Visit [facility] Medical Office Building [address] [phone] Charly Garcia MD [address] [address] documented as of this encounter Visit Diagnoses Not on filedocumented in this encounter Care Teams Guide Dog Trainer Relationship Specialty Start Date End Date Calderón-Daja Reyna DO [address] [place] [address] PCP - General Internal Medicine 12/16/24 Raheem Roland MD [address] [facility] [place] [address] Referring Physician Urology 12/16/24 Charly Garcia MD [address] [address] Consulting Physician Cardiology 01/21/25 documented as of this encounter
--- OUTSIDE RECORDS SUMMARY | 2025-03-15 07:31 | XMS_ITS | Clinical Summary ---
Author Organization [facility] Address [address] [place] [address] Care Team Providers Care Hot Metal Charger Name Role Phone Daja Pugh DO Primary [...] N ot on file 07/25/2022 Data from: [email or web address] Last address used for calculation [address] [facility] 07/25/2022 Sex and Gender Information Value Date [...] 05/11/2021, 072 07/2020, 08/18/2020, Additional history exists Advance Directive Discussion 06/02/2024 Covid-19 Vaccine (2024-2 6 season) 2025 03/23/2022, 09/27/2021, 03/18/2021, Additional history exists Influenza Vaccine (#1) 2025 , 04/17/2021, 03/18/2021, Additional history exists Prostate Cancer Screening Discussion 05/11/2026 05/11/2021 RSV Vaccine (1 - 1-dose 75+ series) 2032 Pneumococcal Vaccine: 50+ Completed 08/09/2022 Insurance [facility] CHOICE PLUS Care Teams Hot Metal Charger Relationship Specialty Start Date End Date Daja Pugh DO [address] [facility] [address] [place] [address] PCP - General Internal Medicine 07/26/22
--- OUTSIDE RECORDS SUMMARY | 2025-03-15 07:31 | XMS_ITS | Encounter Summary ---
Author Organization [facility] Address [address] [facility] [place] [address] Care Team Providers Care Chief Privacy Officer Name Role Phone Daja Phipps DO Primary Care Provider Jana Plummer MD Unavailable [phone] Charly Garcia MD Unavailable [phone] Raheem Roland MD Unavailable [phone] Encounter Details Date Type Department Care Team (Late st Contact Info) Description 02/11/2025 [facility] Only [facility] [address] [facility] [address] [place] [address] Raheem Roland MD [address] [place] [address] Social History Tobacco Use Types Packs/Day [...] 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 Not on file Not on file Not on file documented as of this encounter Plan of Treatment Upcoming Encounters Date Type Department Care Team (Late st Contact Info) Description 04/01/2025 10:30 AM EDT Office Visit [facility] [address] [place] [address] Zenia Bautista MD [address] [place] [address] 06/14/2025 8:45 AM EST Office Visit [facility] [address] [place] [phone] Daja Phipps DO [address] [place] [address] 02/23/2026 10:20 AM EDT Office Visit [facility] [address] [place] [address] Jana Plummer MD [address] [place] [address] documented as of this encounter Procedures Procedure Name Priority Date/Time Associated Diagnosis Comments MR PROSTATE WO CONTRAST Routine 01/04/2025 8:31 AM EDT documented in this encounter Results * MR PROSTATE WO CONTRAST (01/04/2025 8:31 AM EDT) Anatomical Region Laterality Modality Body, Pelvis Magnetic Resonan ce us Raheem Roland MD IMG MRI PROCEDURES Final Res ult documented in this encounter Visit Diagnoses Not on filedocumented in this encounter Care Teams Chief Privacy Officer Relationship Specialty Start Date End Date Calderón-Djaa Reyna DO [address] [place] [address] PCP - General Internal Medicine 11/04/22 Jana Plummer MD [address] [place] [address] Referring Physician Dermatology 01/16/24 Charly Garcia MD [address] [place] [address] Consulting Physician Cardiology 02/20/25 Raheem Roland MD [address] [place] [address] Consulting Physician Urology 02/20/25 documented as of this encounter
--- OUTSIDE RECORDS SUMMARY | 2025-03-15 07:31 | XMS_ITS | Encounter Summary ---
Author Organization [facility] Address [address] [place] [address] Care Team Providers Care Farmworker Machine Name Role Phone StephaneDylonDaja Reyna DO Primary Care Provider Jana Plummer MD Unavailable [phone] Charly Garcia MD Unavailable [phone] Raheem Roland MD Unavailable [phone] Encounter Details Date Type Department Care Team (Late st Contact Info) Description 02/21/2023 Abstract [facility] [address] [facility] [address] [place] [address] Jana Plummer MD [address] [facility] [address] [place] [address] Social History Tobacco Use Types Packs/Day Years [...] 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 Not [...] [address] [place] [address] Zenia Bautista MD [address] [place] [address] 06/14/2025 8:45 AM EST Office Visit [facility] [address] [place] [address] Daja Phipps DO [address] [place] [address] 02/23/2026 10:20 AM EDT Office Visit [facility] [address] [place] [address] Jana Plummer MD [address] [place] [address] documented as of this encounter Visit Diagnoses Not on filedocumented in this encounter Care Teams Farmworker Machine Relationship Specialty Start Date End Date Daja Phipps DO [address] [place] [address] PCP - General Internal Medicine 11/04/22 Jana Plummer MD [address] [place] [address] Referring Physician Dermatology 01/16/24 Charly Garcia MD [address] [place] [address] Consulting Physician Cardiology 02/20/25 Raheem Roland MD [address] [place] [address] Consulting Physician Urology 02/20/25 documented as of this encounter
--- OUTSIDE RECORDS SUMMARY | 2025-03-15 07:31 | XMS_ITS | Encounter Summary ---
Author Organization [facility] Address [address] [place] [address] Care Team Providers Care Mechanical Adjuster Name Role Phone Daja Phipps DO Primary Care Provider Jana Plummer MD Unavailable [phone] Charly Garcia MD Unavailable [phone] Raheem Roland MD Unavailable Encounter Details Date Type Department Care Team (Late st Contact Info) Description 01/15/2023 [facility] [address] [place] [id number] A, Unknown Practice [address] [place], [place] [id number] Social History Tobacco Use Types Packs/Day Years [...] 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 file Not on file documented as of this encounter Plan of Treatment Upcoming Encounters Date Type Department Care Team (Late st Contact Info) Description 04/01/2025 10:30 AM EDT Office Visit [facility] [address] [place] [phone] Zenia Bautista MD [address] [place] [address] 06/14/2025 8:45 AM EST Office Visit [facility] [address] [place] [phone] Daja Phipps DO [address] [place] [address] 02/23/2026 10:20 AM EDT Office Visit [facility] [address] [place] [phone] Jana Plummer MD [address] [place] [address] documented as of this encounter Procedures Procedure Name Priority Date/Time Associated Diagnosis Comments ESOPHAGOSCOPY Routine 01/15/2023 3:08 PM EDT documented in this encounter Results * Esophagoscopy (01/15/2023 3:08 PM EDT) Anatomical Region Laterality Modality Endoscopy us Unknown Practice A ENDOSCOPY PROCEDURE ORDERABLE S Final Result documented in this encounter Visit Diagnoses Not on filedocumented in this encounter Care Teams Mechanical Adjuster Relationship Specialty Start Date End Date Daja Phipps DO [address] [place] [address] PCP - General Internal Medicine 11/04/22 Jana Plummer MD [address] [place] [address] Referring Physician Dermatology 01/16/24 Charly Garcia MD [address] [place] [address] Consulting Physician Cardiology 02/20/25 Raheem Roland MD [address] [place] [address] Consulting Physician Urology 02/20/25 documented as of this encounter
[2025-03-15 07:34] VITALS: BP 152/82; PULSE 86; TEMP 36.4; O2SAT 97
[2025-03-15] MEDS: GENTAMICIN SULFATE 80 MG/2 ML VIAL 120 MG IM (07:46)
[2025-03-15] MEDS: LIDOCAINE 2% JELLY 20 ML UR (08:14)
[2025-03-15] MEDS: LIDOCAINE HCL 1% 100 MG/10 ML MDV INJ (08:17)
--- NOTE | 2025-03-15 08:36 | PM.URSON ---
Urology Surgery Operative Note Operative Note Procedure Date: 03/15/25 Time Out Performed: yes Pre-op Diagnosis: Elevated PSA and prostate PI-RADS 5 lesion by MRI Post-op Diagnosis: same as pre-op Procedures performed: 1. Transrectal MRI fusion prostate biopsies Anesthesia: local and other (Periprostatic block) Primary Surgeon: Raheem Roland Complications: None Estimated blood loss (mL): 10 Findings: 1 area of central calcification Specimens: 1. 6 biopsies from the area of interest sent separately labeled area of interest. 2. 6 biopsies and a mapped out fashion from the left side and 6 from the right side. Drains: None Indications for Procedures: This gentleman has an elevated PSA of 5.7 and a PI-RADS 5 lesion by MRI in the left peripheral zone at the mid level. He now presents for transrectal MRI fusion biopsies of the prostate. He has signed an informed consent after risks were explained. Some of these risks include bleeding, infection, urosepsis, anesthesia to name a few. Detailed description of Procedure: The patient was kept on the [facility] bed and brought into the operating room. He was rotated in the left lateral decubitus position. Timeout was done by all parties in the room. We all agreed upon the patient's identification and the planned procedures for this patient. I started by swabbing his rectum several times with Betadine soaked sponges. I then passed 2% lidocaine jelly per rectum. I then passed the Bah go ultrasound probe per rectum. Segmentation was then done so as to fuse the MRI images onto the live ultrasound. We then identified the area of interest. We began taking biopsies with the needle biopsy gun. We took a total of 6 biopsies from this area of interest. These were all sent separately labeled area of interest. We then did our usual mapped out biopsies. We started on the left side and took 6 biopsies from the base going towards the apex. We then did a similar maneuver on the right side. At the end of the procedure we had 18 satisfactory cores. He was then transferred back to PACU in good condition.
--- NOTE | 2025-03-15 08:50 | PC.NURSE ---
Patient voided without issue post biopsy. Patient reports slightly blood tinged.
== END 2025-03-15 08:52 | disposition home or self-care (01) ==
LOC: SURGOUT 07:28
PROVIDERS: PCP Internal Medicine; Visit Provider Urology
PROC: (CPT 55700; principal; 2025-03-15 08:00)
DX: C61 Malignant neoplasm of prostate (principal); R97.20 Elevated prostate specific antigen [PSA]; N42.9 Disorder of prostate, unspecified; E11.9 Type 2 diabetes mellitus without complications; I10 Essential (primary) hypertension; N40.0 Benign prostatic hyperplasia without lower urinary tract symptoms; Z87.442 Personal history of urinary calculi; I25.10 Atherosclerotic heart disease of native coronary artery without angina pectoris; K21.9 Gastro-esophageal reflux disease without esophagitis; Z79.84 Long term (current) use of oral hypoglycemic drugs
CPT/HCPCS: 55700; J1580

== ENCOUNTER 2025-03-17 10:17 | Day surgery (SDC) | payer MEDICARE, OTHER, SELFPAY ==
[2025-03-10 12:26] VITALS: BP 139/84; PULSE 89; TEMP 36.3; O2SAT 99; BMI 28.3
[2025-03-17] VITALS (11 sets, daily range): BP systolic 133–155; BP diastolic 79–92; PULSE 79–86; TEMP 36.1–36.5; O2SAT 97–99; BMI 28.3
--- NOTE | 2025-03-17 10:15 | XR_ITS ---
[address] [address] Patient Name: PORSHA HUA MRN: [id number] date: 1955 Sex: M Assigned Patient Location: [facility] Current Patient Location: [facility] Accession/Order Number: [id number] Exam Date: 03/17/2025 10:25 Report Date: 03/17/2025 10:38 At the request of: RADHA HAMILTON MD Procedure: XR abdomen 1V KUB: CLINICAL INFORMATION: Kidney stone follow-up COMPARISON: KUB 06/20/2021 FINDINGS: Left sided ureteral stent has now been removed. 2 stones are seen involving the inferior pole of the left kidney largest measuring 1 cm. No definite stones are seen involving the right kidney ureters or urinary bladder. No bowel obstruction or free air. XR/XR abdomen 1V IMPRESSION: LEFT NEPHROLITHIASIS LARGEST STONE MEASURING 1 CM. Impression dictated by: Roland Adams Jr., D.OHossein 03/17/2025 10:38 AM Dictation Location: [place] [address] Electronically authenticated by: [id number] Y Date: 03/17/2025 10:38
[2025-03-17 10:49] LABS: Potassium 4.8 mmol/L (3.5-5.1)
[2025-03-17] MEDS: CEFAZOLIN SODIUM 2 GM/50 ML D5W PREMIX IV (13:05)
[2025-03-17] MEDS: METOCLOPRAMIDE HCL 10 MG/2 ML VIAL IVP (13:06)
--- NOTE | 2025-03-17 13:49 | PM.URSON ---
Urology Surgery Operative Note Operative Note Procedure Date: 03/17/25 Time Out Performed: yes Pre-op Diagnosis: Left nephrolithiasis Post-op Diagnosis: same as pre-op Procedures performed: 1. Left ESWL. Anesthesia: GETA Primary Surgeon: Raheem Roland Complications: None Estimated blood loss (mL): 0 Findings: large dense left renal calculus Specimens: none Drains: None Indications for Procedures: This gentleman has a 1 cm left lower pole renal calculus. It is nonobstructing. He now presents for left ESWL and possible cystoscopy and stent placement. He has signed an informed consent for these procedures after risks were explained. Some of these risks include bleeding, perinephric hematoma, infection and anesthesia to name a few Detailed description of Procedure: The patient was brought to the Operating Room and placed on Siemens electromagnetic lithotripsy treatment table in the supine position. SCDs were placed on their lower extremities and turned on and functioning during the entire case. Timeout was done by all parties in the room. We all agreed upon the patient's identification and the planned procedures for this patient. General Anesthesia was then administered via LMA. Treatment head was then brought to the patient's correct side. While using flourscopy the stone was identified and lined up into the crosshairs. We then began applying shocks. We started at power level 2.0 and increased to a maximum power level of 3.5. Intermittent fluoroscopy revealed that the stone was slow to fragment. It was not until 1600 shocks that we began to see fragmentation. This continued as the shocks progressed. We applied a total of 3000 shocks to this left renal stone. We had excellent fragmentation. The procedure was then terminated. The anesthetic was then reversed. He was then transferred to a [facility] bed and wheeled to PACU in stable condition.
--- NOTE | 2025-03-17 15:23 | PC.NURSE ---
1450: pt ambulates to bathroom with SBA,pt voids without difficulty.
== END 2025-03-17 15:00 | disposition home or self-care (01) ==
LOC: SURGOUT 10:18
PROVIDERS: PCP Internal Medicine; Visit Provider Urology
PROC: (CPT 50590; principal; 2025-03-17 11:35)
DX: N20.0 Calculus of kidney (principal); I10 Essential (primary) hypertension; Z79.01 Long term (current) use of anticoagulants; E87.5 Hyperkalemia; I25.10 Atherosclerotic heart disease of native coronary artery without angina pectoris; Z87.442 Personal history of urinary calculi; K21.9 Gastro-esophageal reflux disease without esophagitis; Z79.84 Long term (current) use of oral hypoglycemic drugs; E11.40 Type 2 diabetes mellitus with diabetic neuropathy, unspecified
CPT/HCPCS: 50590; 36415; 74018; 82948; 84132; J0690; J1100; J1805; J2250; J2371; J2405; J2704; J2765; J3010